=== PATIENT | female | born 1965 | race Caucasian/White ===

== ENCOUNTER 2024-10-18 09:21 | Emergency (ER) | payer OTHER, SELFPAY ==
--- NOTE | ~2024-10-18 | XR_ITS ---
EXAMINATION: XR chest 2V DATE: 10/18/2024 09:58 INDICATION: Pneumonia. TECHNIQUE: Frontal and lateral views of the chest were obtained. COMPARISON: Chest 2 views 11/22/2009 FINDINGS: There is no pneumonia, pleural effusion, or pneumothorax. The heart size is normal. IMPRESSION: 1. No acute cardiopulmonary disease. Reviewed, dictated and finalized at location A. R FILTRATION TECHNICIAN
[2024-10-18 09:34] VITALS: BP 132/72; PULSE 84; RESP 18; TEMP 37.5; O2SAT 98
--- NOTE | 2024-10-18 10:00 | ED_ITS ---
HPI - URI/Sore Throat General Chief Complaint: Upper Respiratory Infection Stated Complaint: Congestion/Fever/Cough History of Present Illness HPI Narrative: Patient presents with a cough productive at times. No shortness of breath no chest pain nasal congestion runny nose fever and body aches. Patient denies a sore throat. Patient is worried about her pneumonia states that both her grand kids were diagnosed with pneumonia. Patient is taking DayQuil and NyQuil for her symptoms. Related Data Allergies Allergy/AdvReac Type Severity Reaction Status Date / Time No Known Allergies Allergy Verified 10/18/24 09:49 Review of Systems Review of Systems: CONSTITUTIONAL: Denies chills, or sweats. Reports fever and generalized body aches EYES: Denies visual changes, redness, or discharge. ENT: Denies otalgia. Reports nasal congestion runny nose and sore throat CARDIOVASCULAR: Denies chest pain, palpitations, or edema. RESPIRATORY: Denies dyspnea. Reports occasional cough GASTROINTESTINAL: Denies abdominal pain, nausea, vomiting, or diarrhea. GENITOURINARY: Denies dysuria or hematuria. SKIN: Denies rash or itching. MUSCULOSKELETAL: Denies back pain, joint pain, or myalgia. Reports generalized body aches NEUROLOGIC: Denies headache, numbness, or weakness. PSYCHIATRIC: Denies anxiety or depression. [facility] Surgical History Surgical History (System 01/16/22 @ 16:22 by Camila Mann) History of shoulder surgery History of tubal ligation Family History Family History (System 01/16/22 @ 16:22 by Camila Mann) Mother Family history of malignant neoplasm of ovary Social History Social History (System 01/16/22 @ 16:22 by Camila Mann) Smoking status: Heavy tobacco smoker Alcohol intake: never Comments At time of signature, agree with nursing past medical, surgical, social and family history. There is no relevant family history pertinent to the presenting complaint Exam Narrative: The patient is a well-developed, well-nourished in no acute distress. SKIN: Skin is warm and dry without erythema, swelling or exudate. There is good turgor. No tenting. HEAD: Atraumatic. Normocephalic. No temporal or scalp tenderness. EYES: Moist and bright. Sclera and conjunctivae normal. No discharge. PERRLA. Extraocular motions intact. Gross visual acuity intact. EARS: Pinna is normal shape and contour. Clear external auditory canals. TM pearly tyson with good cone of light, no erythema or suppuration. Bilateral cerumen noted no gross hearing deficit. NOSE: pink, moist mucosa with good air movement. Clear rhinorrhea without nasal flaring. Septum midline. Mouth: moist mucous membranes. THROAT; mild erythema noted to posterior oropharynx with moderate postnasal drainage. Without exudate or ulceration.. Uvula midline. Normal movement of soft palate. NECK: Supple and nontender with full range of motion without discomfort. No meningeal signs. LUNGS: Equal and bilateral breath sounds without , rales or rhonchi. Few scattered expiratory wheezes CHEST: The chest wall is without retractions or use of accessory muscles. HEART: Has a regular rate and rhythm without murmur, gallops, click or rub. ABDOMEN: Soft, nontender with positive active bowel sounds. No rebound tenderness. EXTREMITIES: Without cyanosis, clubbing or edema. Equal 2+ distal pulses and 2 second capillary refill noted. NEUROLOGIC: alert, active, . The patient moves all extremities with normal muscle strength. Normal muscle tone is noted. Normal coordination is noted. NO focal neurological findings noted. Course Course Level of Care: Express Care Visit Vital Signs Vital signs: Vital Signs Temperature 37.5 C 10/18/24 09:34 Pulse Rate 84 10/18/24 09:34 Respiratory Rate 18 10/18/24 09:34 Blood Pressure 132/72 10/18/24 09:34 Pulse Oximetry 98 10/18/24 09:34 Oxygen Delivery Room Air 10/18/24 09:34 Temperature 37.5 C 10/18/24 09:34 Pulse Rate 84 10/18/24 09:34 Respiratory Rate 18 10/18/24 09:34 Blood Pressure 132/72 10/18/24 09:34 Pulse Oximetry 98 10/18/24 09:34 Oxygen Delivery Room Air 10/18/24 09:34 Please ADDISON schedule a followup visit with your personal physician for further evaluation and treatment. Including recheck and discussion of your blood pressure. If your symptoms persist, change or worsen significantly before you can contact your personal physician then please, without delay, go to the emergency department for further evaluation MDM - URI/Sore Throat Imaging Data Radiologist's impression: atient: Chelsea Aleman : 1965 MR#: [id number] Age: 58 Acct:[id number] Loc: [facility] ADM Date: 10/18/24Attending Dr: Ordering Physician: Chela Mcclain APRN Date of Service: 10/18/24 Procedure(s): XR chest 2V Accession Number(s): [id number] cc: Julio, Audelia Villanueva MD; Chela Mcclain APRN~ EXAMINATION: XR chest 2V DATE: 10/18/2024 09:58 INDICATION: Pneumonia. TECHNIQUE: Frontal and lateral views of the chest were obtained. COMPARISON: Chest 2 views 11/22/2009 FINDINGS: There is no pneumonia, pleural effusion, or pneumothorax. The heart size is normal. IMPRESSION: 1. No acute cardiopulmonary disease. Reviewed, dictated and finalized at location A. NICAL COMMUNICATION TEACHER Dictated By: Jesús Hagan MD 10/18/24 1000 Signed By: <Electronically signed by Jesús Hagan MD in [place]> Discharge Plan Discharge Clinical Impression: Bronchitis, Upper respiratory infection Patient Disposition: Home, Self-Care Condition: Stable Instructions: Acute Bronchitis (ED), COPD (Chronic Obstructive Pulmonary Disease) (DC) Additional Instructions: *Throw away your current toothbrush and begin using a new toothbrush in 48 hours in order to prevent re-infection. If anyone else's toothbrush is stored near yours, they should also throw away their current toothbrush and begin using a new one. *Sanitize all reusable water bottles. *Do not share items with others. *Wash your hands often. Supportive care/Soothing measures/Pain relief: *Avoid cigarette smoke (including secondhand smoke) *Avoid acidic foods and beverages *Eat a soft diet for the next 3-4 days *Salt water gargles may alleviate some of the throat discomfort. Most recipes call for ? to ? teaspoon of salt per 8 ounces (approximately 240 mL) of warm water. *You can take tylenol or ibuprofen per the package instructions for pain/fever. *Sipping cold or warm beverages (eg, tea with honey or lemon) *Eat cold or frozen desserts (eg, ice cream, popsicles) *Sucking on ice *Sucking on hard candy Viruses are everywhere and can spread like wildfire. Sx can last up to 3-4 weeks. Treatment is aimed toward your specific symptoms. You must treat your symptoms in order to feel better while the virus runs it's course. Increase fluids especially water. Do not share items with others. You can take Tylenol or ibuprofen per the package instructions for pain/fever. Wash your hands as often as possible. Purchase and begin using an over the counter antihistamine/decongestant combo such as Zyrtec D, Argelia D, Claritin D as well as Flonase nasal spray per the package instructions. Salt water gargles may alleviate some of your throat discomfort. Go to the ER if your symptoms become worse of if ANY new symptoms develop Patient Language: Czech Prescriptions: New benzonatate 100 mg capsule 100 mg PO TID PRN (Reason: cough) 5 Days Qty: 10 0RF albuterol sulfate 90 mcg/actuation HFA aerosol inhaler 2 puff inhalation QID PRN (Reason: shortness of breath or wheezing) Qty: 17 0RF fluticasone propionate [Flonase Allergy Relief] 50 mcg/actuation spray,suspension 2 spray NASAL BID Qty: 9.9 0RF Rx Instructions: administer into each nostril methylprednisolone [Medrol (Mervin)] 4 mg tablets,dose pack See Rx Instructions .ROUTE .COMPLEX Qty: 21 0RF Rx Instructions: orally per package directions Follow-up/Referrals: Julio,Audelia Villanueva MD [Primary Care Provider] -
--- OUTSIDE RECORDS SUMMARY | 2024-10-25 07:59 | XMS_ITS | Data Portability ---
Author Organization [place] KATELYNKatie Cortes Address [address] [place] [address] Care Team Providers Care Dye Room Helper Name Role Phone AUDELIA KIM [facility] Assessment No assessment recorded. Plan of Treatment Reminders Order Date Submit Date Provider Last Modified By Organization Details Last Modified Time Details Appointments ANY 15 2024 08:30A M AUDELIA KIM MD Not available Not available Not available Lab lipid panel, serum 2021 022 [facility], [address] [place] [address], [address], [place], [address], 11/01/2021 11:11:21 CMP, serum or plasma 2021 022 [facility], [address] [place] [address], [address], [place], [address], 11/01/2021 11:11:20 TSH + free T4, serum 2021 022 [facility], [address] [place] [address], [address], [place], [address], 11/01/2021 11:11:19 CBC 2021 022 [facility], [address] [place] [address], [address], [place], [address], 11/01/2021 11:11:20 cytology report, thin prep, smear or scraping, cervical or vaginal 2021 022 [facility], [address] [facility], [address], [place], [address], 10/24/2022 08:37:37 influenza virus A + B + SARS-CoV- 2 (COVID19) Ag panel, rapid IA, upper respirato ry specimen 2023 024 aniceto In-Office Order, Internal Use Only DO Not Attach Compendium DO Not Attach Compendium, Do Not Delete/merge, [id number] 01/13/2024 16:10:32 inflammat ion panel, serum or plasma 2023 024 [facility], [facility], [address], [place], [address], 08/05/2024 08:37:56 lipid panel, serum 2023 024 [facility], [address] [facility], [facility], [place], [address], 08/05/2024 08:37:57 CMP, serum or plasma 2023 024 [facility], [address] [facility], [facility], [place], [address], 08/05/2024 08:37:59 CBC 2023 024 [facility], [address] [facility], [facility], [place], [address], 08/05/2024 08:38:01 HbA1c (hemoglob in A1c), blood 2023 024 [facility], [address] [facility], [facility], [place], [address], 08/05/2024 08:38:00 CBC w/ auto diff 2023 024 [facility], [address] [address], [address], [place], [address], 08/19/2024 03:36:19 Referral gastroent erologist referral - Please call pt to set up appointme nt 2021 MAYELA Scooby Sae[facility], [address] [facility] , [place] [address], [place], [address], 12/25/2022 08:40:26 physical therapist referral - chronic low back pain 2023 [facility], [address] [place], [address], 09/02/2024 14:17:22 Procedures None recorded. Surgeries None recorded. Imaging LDCT, chest, for lung cancer screening - Please call pt to set up appointme nt. Thank you 2021 [facility], [address] [facility] [place], [address], 01/01/2023 15:12:21 MAMMO, diagnosti c, digital, bilateral - Please call pt to set up appointme nt. Thank you 2021 [facility], [address] [facility] [place], [address], 2022 13:25:44 XR, sacroilia c joint(s) - bilateral SI joint pain 2023 [facility], [address] [facility] [place], [address], 08/09/2024 13:41:17 LDCT, chest, for lung cancer screening - 1. Patient does not have active signs/sym ptoms of lung cancer.2. Shared decision making regarding lung cancer screening occurred during her annual wellness visit on 08/04/24.3 . This is the patient's follow up annual exam after having her last one completed on 12/31/22. She had a follow up CT chest w/o contrast on 03/28/23 and was recommend ed to have a repeat scan with a LDCT chest in 12 months.4. Patient is a current smoker and currently smokes about 1/3 pack per day. She has previousl y smoked 1 pack per day for over 30 years. 2023 [facility] [place] [facility], [address] [facility] [place], [address], 10/12/2024 10:31:01 MAMMO, screening , digital, bilateral 2023 [email or web address] [place] [facility], [address] [facility] [place], [address], 09/09/2024 17:26:43 Medication Orders omeprazol e 20 mg capsule,d elayed release 2021 [facility], [address] [place] [address], [address], 08/04/2024 15:37:45 escitalop razia 5 mg tablet 2021 [id number], [address], [place], [place], [id number], 08/04/2024 15:37:37 escitalop razia 10 mg tablet 2021 [facility]13903, [address], [place], [place], [id number], 08/04/2024 15:37:34 diclofena c sodium 75 mg tablet,de layed release 2023 [facility]39919, [address], [place], [place], [id number], 01/13/2024 16:12:11 fluconazo le 200 mg tablet 2023 [facility] #17553, [address], [place], [place], [id number], 08/04/2024 15:43:18 amoxicill in 875 mg tablet 2023 [facility]20377, [address], [place], [place], [id number], 08/04/2024 15:42:50 nicotine 14 mg/24 hr daily transderm al patch 2023 [facility]82194, [address], [place], [place], [id number], 08/04/2024 17:01:01 nicotine 10 mg inhalatio n cartridge 2023 024 [facility]22155, [address], [place], [place], [id number], 08/18/2024 09:22:04 cyclobenz aprine 5 mg tablet 2023 024 [facility][id number], [address], [place], [place], [id number], 08/18/2024 10:48:26 atorvasta tin 10 mg tablet 2023 024 [facility][id number], [address], [place], [place], [id number], 08/18/2024 09:56:29 Patient TargetsNo targets recorded. Patient Instructions Encounter Date Encounter Id Patient Instructions Last Modified By Organization Details Last Modified Time 10/31/2021 [id number] learning about healthy weight jnanney Not available 10/31/2021 10:53:00 01/13/2024 [id number] A healthy lifestyle: care instructions jnanney Not available 01/13/2024 16:10:30 A healthy lifestyle: care instructions jnanney Not available 01/13/2024 16:12:02 cough: care instructions jnanney Not available 01/13/2024 16:10:30 back care and preventing injuries: care instructions jnanney Not available 01/13/2024 16:12:02 vaginal yeast infection: care instructions jnanney Not available 01/13/2024 16:13:14 upper respirator y infection (cold): care instructions jnanney Not available 01/13/2024 16:10:30 Acute Sinusitis: Care Instructions jnanney Not available 01/13/2024 16:12:02 08/04/2024 [id number] smoking cessatio n counseling, greater than 3 minutes up to 10 minutes* [email or web address] Not available 08/04/2024 16:23:08 A healthy lifestyle: care instructions Not available 08/04/2024 16:12:30 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 History of polyp of colon follow up colonoscopy; history of polyps Please call pt to set up appointment Referring Physician: Audelia Kim [facility], Encounter Date: 10/11/2022 Physical Therapist Referral for Chronic low back pain chronic low back pain Referring Physician: Audelia Kim [facility], Encounter Date: 08/18/2024 Results Created Date Observation Date Name Description Value Unit Range Abnormal Flag Note LastModifiedBy Organization Detail LastModifiedTime 10/31/19 22 11/01/2021 TSH+F REE T4 TSH 0.489 uIU/m L 0.450- 4.500 Not Available [facility] ([facility]) [address] [place], [address], 11/01/2021 11:11:19 10/31/19 22 11/01/2021 TSH+F REE T4 T4,free(dire ct) 1.07 NG/dL 0.82-1 .77 Not Available [facility] ([facility]) [address] [place], [address], 11/01/2021 11:11:19 10/31/19 22 11/01/2021 COMP. METAB OLIC PANEL (14) glucose 87 mg/dL 65-99 Not Available [facility] ([facility]) [address] [place], [address], 11/01/2021 11:11:20 10/31/19 22 11/01/2021 COMP. METAB OLIC PANEL (14) BUN 14 mg/dL 6-24 Not Available [facility] ([facility]) [address] [place], [address], 11/01/2021 11:11:20 10/31/19 22 11/01/2021 COMP. METAB OLIC PANEL (14) creatinine 0.80 mg/dL 0.57-1 .00 Not Available [facility] ([facility]) [address] [place], [address], 11/01/2021 11:11:20 10/31/19 22 11/01/2021 COMP. METAB OLIC PANEL (14) eGFR if nonafricn AM 84 mL/mi n/1.7 3 >59 Not Available [facility] ([facility]) [address] [facility], [place], [address], 11/01/2021 11:11:20 10/31/19 22 11/01/2021 COMP. METAB OLIC PANEL (14) eGFR if africn AM 97 mL/mi n/1.7 3 >59 In accor dance with recom larry palencia from the NKF-A SN Task force , Johanna is in the proce ss of updat ing its eGFR calcu latio n to the 2020 CKD-E PI creat inine equat ion that estim ates kidne y funct ion witho ut a race varia ble. Not Available [facility] ([facility]) [address] [facility], [place], [address], 11/01/2021 11:11:20 10/31/19 22 11/01/2021 COMP. METAB OLIC PANEL (14) BUN/creatini ne ratio 18 9-23 Not Available [facility]) [address] [facility], [place], [address], 11/01/2021 11:11:20 10/31/19 22 11/01/2021 COMP. METAB OLIC PANEL (14) sodium 141 mmol/ L 134-14 4 Not Available [facility] ([facility]) [address] [facility] [place], [address], 11/01/2021 11:11:20 10/31/19 22 11/01/2021 COMP. METAB OLIC PANEL (14) potassium 4.5 mmol/ L 3.5-5. 2 Not Available [facility] ([facility]) [address] [facility] [place], [address], 11/01/2021 11:11:20 10/31/19 22 11/01/2021 COMP. METAB OLIC PANEL (14) chloride 103 mmol/ L 96-106 Not Available [facility] ([facility]) [address] [facility] [place], [address], 11/01/2021 11:11:20 10/31/19 22 11/01/2021 COMP. METAB OLIC PANEL (14) carbon dioxide, total 22 mmol/ L 20-29 Not Available [facility] ([facility]) [address] [facility] [place], [address], 11/01/2021 11:11:20 10/31/19 22 11/01/2021 COMP. METAB OLIC PANEL (14) calcium 8.8 mg/dL 8.7-10 .2 Not Available [facility] ([facility]) [address] [facility] [place], [address], 11/01/2021 11:11:20 10/31/19 22 11/01/2021 COMP. METAB OLIC PANEL (14) protein, total 7.0 g/dL 6.0-8. 5 Not Available [facility] ([facility]) [address] [facility] [place], [address], 11/01/2021 11:11:20 10/31/19 22 11/01/2021 COMP. METAB OLIC PANEL (14) albumin 4.2 g/dL 3.8-4. 9 Not Available [facility] ([facility]) [address] [facility] [place], [address], 11/01/2021 11:11:20 10/31/19 22 11/01/2021 COMP. METAB OLIC PANEL (14) globulin, total 2.8 g/dL 1.5-4. 5 Not Available [facility] ([facility]) [address] [facility] [place], [address], 11/01/2021 11:11:20 10/31/19 22 11/01/2021 COMP. METAB OLIC PANEL (14) A/G ratio 1.5 1.2-2. 2 Not Available [facility] ([facility]) [address] [facility] [place], [address], 11/01/2021 11:11:20 10/31/19 22 11/01/2021 COMP. METAB OLIC PANEL (14) bilirubin, total 0.3 mg/dL 0.0-1. 2 Not Available [facility] ([facility]) [address] [facility] [place], [address], 11/01/2021 11:11:20 10/31/19 22 11/01/2021 COMP. METAB OLIC PANEL (14) alkaline phosphatase 107 IU/L 44-121 Ple ase note refer ence inter nella lu e Not Available [facility] ([facility]) [address] [facility] [place], [address], 11/01/2021 11:11:20 10/31/19 22 11/01/2021 COMP. METAB OLIC PANEL (14) AST (SGOT) 45 IU/L 0-40 above high normal Not Available [facility] ([facility]) [address] [facility] [place], [address], 11/01/2021 11:11:20 10/31/19 22 11/01/2021 COMP. METAB OLIC PANEL (14) ALT (SGPT) 66 IU/L 0-32 above high normal Not Available [facility] ([facility]) [address] [facility], [place], [address], 11/01/2021 11:11:20 10/31/19 22 11/01/2021 CBC, PLATE LET, NO DIFFE RENTI AL WBC 7.8 x10e3 /uL 3.4-10 .8 Not Available [facility] ([facility]) [address] [facility], [place], [address], 11/01/2021 11:11:20 10/31/19 22 11/01/2021 CBC, PLATE LET, NO DIFFE RENTI AL RBC 4.04 x10e6 /uL 3.77-5 .28 Not Available [facility] ([facility]) [address] [facility] [place], [address], 11/01/2021 11:11:20 10/31/19 22 11/01/2021 CBC, PLATE LET, NO DIFFE RENTI AL hemoglobin 11.7 g/dL 11.1-1 5.9 Not Available [facility] ([facility]) [address] [facility], [place], [address], 11/01/2021 11:11:20 10/31/19 22 11/01/2021 CBC, PLATE LET, NO DIFFE RENTI AL hematocrit 35.0 % 34.0-4 6.6 Not Available [facility] ([facility]) [address] [facility], [place], [address], 11/01/2021 11:11:20 10/31/19 22 11/01/2021 CBC, PLATE LET, NO DIFFE RENTI AL MCV 87 fL 79-97 Not Available [facility] ([facility]) [address] [place], [address], 11/01/2021 11:11:20 10/31/19 22 11/01/2021 CBC, PLATE LET, NO DIFFE RENTI AL MCH 29.0 pg 26.6-3 3.0 Not Available [facility] ([facility]) [address] [place], [address], 11/01/2021 11:11:20 10/31/19 22 11/01/2021 CBC, PLATE LET, NO DIFFE RENTI AL MCHC 33.4 g/dL 31.5-3 5.7 Not Available [facility] ([facility]) [address] [facility], [place], [address], 11/01/2021 11:11:20 10/31/19 22 11/01/2021 CBC, PLATE LET, NO DIFFE RENTI AL RDW 12.8 % 11.7-1 5.4 Not Available [facility] ([facility]) [address] [facility], [place], [address], 11/01/2021 11:11:20 10/31/19 22 11/01/2021 CBC, PLATE LET, NO DIFFE RENTI AL platelets 231 x10e3 /uL 150-45 0 Not Available [facility] ([facility]) [address] [facility], [place], [address], 11/01/2021 11:11:20 10/31/19 22 11/01/2021 CBC, PLATE LET, NO DIFFE RENTI AL NRBC PAINTER ORDNANCE Not Available [facility] ([facility]) [address] [facility], [place], [address], 11/01/2021 11:11:20 10/31/19 22 11/01/2021 LIPID PANEL cholesterol, total 246 mg/dL 100-19 9 above high normal Not Available [facility] ([facility]) [address] [place], [address], 11/01/2021 11:11:21 10/31/19 22 11/01/2021 LIPID PANEL triglyceride s 191 mg/dL 0-149 above high normal Not Available [facility] ([facility]) [address] [place], [address], 11/01/2021 11:11:21 10/31/19 22 11/01/2021 LIPID PANEL HDL cholesterol 48 mg/dL >39 Not Available [facility]) [address] [facility], [place], [address], 11/01/2021 11:11:21 10/31/19 22 11/01/2021 LIPID PANEL VLDL cholesterol molly 35 mg/dL 5-40 Not Available [facility]) [address] [facility], [place], [address], 11/01/2021 11:11:21 10/31/19 22 11/01/2021 LIPID PANEL LDL chol calc ([facility]) 163 mg/dL 0-99 above high normal Not Available [facility] ([facility]) [address] [facility], [place], [address], 11/01/2021 11:11:21 10/31/19 22 11/01/2021 LIPID PANEL comment: PAINTER ORDNANCE Not Available [facility] ([facility]) [address] [facility], [place], [address], 11/01/2021 11:11:21 10/31/19 22 11/01/2021 CARDI OVASC ULAR REPOR T interpretati on Note Suppl ement al repor t is avail able. Not Available [facility] ([facility]) [address] [facility], [place], [address], 11/01/2021 11:11:22 10/31/19 22 11/01/2021 CARDI OVASC ULAR REPOR T pdf . Not Available [facility] ([facility]) [address] [facility], [place], [address], 11/01/2021 11:11:22 10/11/20 22 10/13/2022 IGP, APTIM A HPV, RFX 16/18 ,45 HPV aptima Negati ve negati ve This nucle ic acid ampli ficat ion test detec ts fourt een high- risk HPV types (16,1 8,31, 33,35 ,39,4 5,51, 52,56 ,58,5 9,66, 68) witho ut diffe renti ation . Not Available [facility] ([facility]) [address] [facility], [place], [address], 10/24/2022 08:37:37 10/11/20 22 10/24/2022 IGP, APTIM A HPV, RFX 16/18 ,45 diagnosis: Meliton ventura NEGDARLENE DAVEY FOR INTRA EPITH ELIAL LESIO N OR MALTOMAS ARNALDO . THIS SPECI MEN WAS RESCR EENED PART OF OUR QUALI TY CONTR OL PROGR AM. Not Available [facility] ([facility]) [address] [facility], [place], [address], 10/24/2022 08:37:37 10/11/20 22 10/24/2022 IGP, APTIM A HPV, RFX 16/18 ,45 specimen adequacy: Meliton ventura Satis facto shila for evalu ation . Endoc ervic al and/o r squam ous metap lasti c cells (endo cervi molly compo nent) are prese nt. Not Available [facility] ([facility]) [address] [facility], [place], [address], 10/24/2022 08:37:37 10/11/20 22 10/24/2022 IGP, APTIM A HPV, RFX 16/18 ,45 clinician provided ICD10: Meliton ventura Z12.4 Not Available [facility] ([facility]) [address] [facility], [place], [address], 10/24/2022 08:37:37 10/11/20 22 10/24/2022 IGP, APTIM A HPV, RFX 16/18 ,45 performed by: Meliton lyle Cytoaudrey ventura (ASCP ) Not Available [facility] ([facility] [address] [facility], [place], [address], 10/24/2022 08:37:37 10/11/20 22 10/24/2022 IGP, APTIM A HPV, RFX 16/18 ,45 QC reviewed by: Meliton Marks n, Super visor y Cytot echsunny tanner t (ASCP ) Not Available [facility] ([facility] [address] [place], [address], 10/24/2022 08:37:37 10/11/20 22 10/24/2022 IGP, APTIM A HPV, RFX 16/18 ,45 . . Not Available [facility] ([facility] [address] [place], [address], 10/24/2022 08:37:37 10/11/20 22 10/24/2022 IGP, APTIM A HPV, RFX 16/18 ,45 note: Meilton ventura The Pap smear is a scree jose test desig vijay to aid in the detec tion of tyrese ligna nt and malig nant condi tions of the uteri ne cervi x. It is not a diagn ostic proce dure and shoul d not be used as the sole means of detec ting cervi molly cance r. Both false -posi tive and false -nega tive repor ts do occur . Not Available [facility] ([facility] [address] [facility], [place], [address], 10/24/2022 08:37:37 10/11/20 22 10/24/2022 IGP, APTIM A HPV, RFX 16/18 ,45 test methodology: Meliton ventura This liqui d based ThinP rep(R ) pap test was scree vijay with the use of an image guide vern systpastor m. Not Available [facility] ([facility] [address] [place], [address], 10/24/2022 08:37:37 10/11/20 22 10/24/2022 IGP, APTIM A HPV, RFX 16/18 ,45 HPV genotype reflex Meliton ventura Crite joellen not met, HPV Genot ype not perfo rmed. Not Available [facility] ([facility] [address] [facility], [place], [address], 10/24/2022 08:37:37 01/13/20 24 01/13/2024 influ rocio virus A + B + SARS- CoV-2 (COVI D19) Ag panel , rapid IA, upper respi rator y speci men Flu A negati ve Not Available In-Office Order Internal Use Only DO Not Attach Compendium DO Not Attach Compendium, Do Not Delete/merge, [id number] 01/13/2024 15:38:38 01/13/20 24 01/13/2024 influ rocio virus A + B + SARS- CoV-2 (COVI D19) Ag panel , rapid IA, upper respi rator y speci men Flu B negati ve Not Available In-Office Order Internal Use Only DO Not Attach Compendium DO Not Attach Compendium, Do Not Delete/merge, [id number] 01/13/2024 15:38:38 08/04/20 24 08/05/2024 ESR-W ES+CR P sedimentatio n rate-westerg abelardo 5 mm/HR 0-40 Not Available [facility] ([facility] [address] [facility], [place], [address], 08/05/2024 08:37:56 08/04/20 24 08/05/2024 ESR-W ES+CR P C-reactive protein, quant 7 mg/L 0-10 Not Available [facility] [address] [facility], [place], [address], 08/05/2024 08:37:56 08/04/20 24 08/05/2024 LIPID PANEL cholesterol, total 249 mg/dL 100-19 9 above high normal Not Available [facility] ([facility] [address] [facility], [place], [address], 08/05/2024 08:37:57 08/04/20 24 08/05/2024 LIPID PANEL triglyceride s 395 mg/dL 0-149 above high normal Not Available [facility] ([facility] [address] [facility], [place], [address], 08/05/2024 08:37:57 08/04/2008/05/2024 LIPID PANEL HDL cholesterol 35 mg/dL >39 below low normal Not Available [facility] ([facility]) [address] [facility] [place], [address], 08/05/2024 08:37:57 08/04/2008/05/2024 LIPID PANEL VLDL cholesterol molly 73 mg/dL 5-40 above high normal Not Available [facility] ([facility] [address] [facility] [place], [address], 08/05/2024 08:37:57 08/04/2008/05/2024 LIPID PANEL LDL chol calc ([facility]) 141 mg/dL 0-99 above high normal Not Available [facility] ([facility] [address] [place], [address], 08/05/2024 08:37:57 08/04/2008/05/2024 COMP. METAB OLIC PANEL (14) glucose 65 mg/dL 70-99 below low normal Not Available [facility] ([facility]) [address] [facility] [place], [address], 08/05/2024 08:37:59 08/04/2008/05/2024 COMP. METAB OLIC PANEL (14) BUN 12 mg/dL 6-24 Not Available [facility] ([facility] [address] [place], [address], 08/05/2024 08:37:59 08/04/2008/05/2024 COMP. METAB OLIC PANEL (14) creatinine 0.79 mg/dL 0.57-1 .00 Not Available [facility] ([facility] [address] [place], [address], 08/05/2024 08:37:59 08/04/2008/05/2024 COMP. METAB OLIC PANEL (14) eGFR 87 mL/mi n/1.7 3 >59 Not Available [facility] ([facility]) [address] [facility] [place], [address], 08/05/2024 08:37:59 08/04/20 24 08/05/2024 COMP. METAB OLIC PANEL (14) BUN/creatini ne ratio 15 9-23 Not Available [facility]) [address] [facility] [place], [address], 08/05/2024 08:37:59 08/04/20 24 08/05/2024 COMP. METAB OLIC PANEL (14) sodium 140 mmol/ L 134-14 4 Not Available [facility] ([facility]) [address] [facility], [place], [address], 08/05/2024 08:37:59 08/04/20 24 08/05/2024 COMP. METAB OLIC PANEL (14) potassium 4.3 mmol/ L 3.5-5. 2 Not Available [facility] ([facility] [address] [facility], [place], [address], 08/05/2024 08:37:59 08/04/20 24 08/05/2024 COMP. METAB OLIC PANEL (14) chloride 102 mmol/ L 96-106 Not Available [facility] ([facility] [address] [facility], [place], [address], 08/05/2024 08:37:59 08/04/20 24 08/05/2024 COMP. METAB OLIC PANEL (14) carbon dioxide, total 24 mmol/ L 20-29 Not Available [facility] ([facility] [address] [facility], [place], [address], 08/05/2024 08:37:59 08/04/20 24 08/05/2024 COMP. METAB OLIC PANEL (14) calcium 9.6 mg/dL 8.7-10 .2 Not Available [facility] ([facility]) [address] [facility] [place], [address], 08/05/2024 08:37:59 08/04/2008/05/2024 COMP. METAB OLIC PANEL (14) protein, total 7.2 g/dL 6.0-8. 5 Not Available [facility] ([facility]) [address] [facility], [place], [address], 08/05/2024 08:37:59 08/04/2008/05/2024 COMP. METAB OLIC PANEL (14) albumin 4.4 g/dL 3.8-4. 9 Not Available [facility] ([facility]) [address] [facility] [place], [address], 08/05/2024 08:37:59 08/04/20 24 08/05/2024 COMP. METAB OLIC PANEL (14) globulin, total 2.8 g/dL 1.5-4. 5 Not Available [facility] ([facility]) [address] [facility], [place], [address], 08/05/2024 08:37:59 08/04/2008/05/2024 COMP. METAB OLIC PANEL (14) bilirubin, total 0.4 mg/dL 0.0-1. 2 Not Available [facility] ([facility]) [address] [facility], [place], [address], 08/05/2024 08:37:59 08/04/2008/05/2024 COMP. METAB OLIC PANEL (14) alkaline phosphatase 107 IU/L 44-121 Not Available [facility] ([facility]) [address] [facility], [place], [address], 08/05/2024 08:37:59 08/04/2008/05/2024 COMP. METAB OLIC PANEL (14) AST (SGOT) 24 IU/L 0-40 Not Available [facility] ([facility]) [address] [facility], [place], [address], 08/05/2024 08:37:59 08/04/2008/05/2024 COMP. METAB OLIC PANEL (14) ALT (SGPT) 19 IU/L 0-32 Not Available [facility] ([facility]) [address] [facility], [place], [address], 08/05/2024 08:37:59 08/04/2008/05/2024 HEMOG LOBIN A1C hemoglobin A1C 5.6 % 4.8-5. 6 Predi abete s: 5.7 - 6.4 Diabe jayna: >6.4 Glyce maryjo contr ol for adult s with diabe jayna: <7.0 Not Available [facility] ([facility]) [address] [facility], [place], [address], 08/05/2024 08:38:00 08/04/2008/05/2024 CBC, PLATE LET, NO DIFFE RENTI AL WBC 14.1 x10e3 /uL 3.4-10 .8 above high normal Not Available [facility] ([facility]) [address] [place], [address], 08/05/2024 08:38:01 08/04/2008/05/2024 CBC, PLATE LET, NO DIFFE RENTI AL RBC 5.42 x10e6 /uL 3.77-5 .28 above high normal Not Available [facility] ([facility]) [address] [place], [address], 08/05/2024 08:38:01 08/04/2008/05/2024 CBC, PLATE LET, NO DIFFE RENTI AL hemoglobin 15.7 g/dL 11.1-1 5.9 Not Available [facility] ([facility]) [address] [place], [address], 08/05/2024 08:38:01 08/04/2008/05/2024 CBC, PLATE LET, NO DIFFE RENTI AL hematocrit 47.3 % 34.0-4 6.6 above high normal Not Available [facility] ([facility]) [address] [facility], [place], [address], 08/05/2024 08:38:01 08/04/2008/05/2024 CBC, PLATE LET, NO DIFFE RENTI AL MCV 87 fL 79-97 Not Available [facility] ([facility]) [address] [facility], [place], [address], 08/05/2024 08:38:01 08/04/2008/05/2024 CBC, PLATE LET, NO DIFFE RENTI AL MCH 29.0 pg 26.6-3 3.0 Not Available [facility] ([facility]) [address] [facility], [place], [address], 08/05/2024 08:38:01 08/04/2008/05/2024 CBC, PLATE LET, NO DIFFE RENTI AL MCHC 33.2 g/dL 31.5-3 5.7 Not Available [facility] ([facility]) [address] [facility], [place], [address], 08/05/2024 08:38:01 08/04/2008/05/2024 CBC, PLATE LET, NO DIFFE RENTI AL RDW 12.7 % 11.7-1 5.4 Not Available [facility] ([facility]) [address] [facility], [place], [address], 08/05/2024 08:38:01 08/04/2008/05/2024 CBC, PLATE LET, NO DIFFE RENTI AL platelets 259 x10e3 /uL 150-45 0 Not Available [facility] ([facility]) [address] [facility], [place], [address], 08/05/2024 08:38:01 08/18/20 24 08/18/2024 CBC WITH DIFFE RENTI AL/PL ATELE T WBC 9.3 x10e3 /uL 3.4-10 .8 Not Available [facility] ([facility]) [address] [facility], [place], [address], 08/19/2024 03:36:19 08/18/20 24 08/18/2024 CBC WITH DIFFE RENTI AL/PL ATELE T RBC 5.17 x10e6 /uL 3.77-5 .28 Not Available [facility] ([facility]) [address] [facility], [place], [address], 08/19/2024 03:36:19 08/18/20 24 08/18/2024 CBC WITH DIFFE RENTI AL/PL ATELE T hemoglobin 14.9 g/dL 11.1-1 5.9 Not Available [facility] ([facility]) [address] [facility], [place], [address], 08/19/2024 03:36:19 08/18/20 24 08/18/2024 CBC WITH DIFFE RENTI AL/PL ATELE T hematocrit 46.4 % 34.0-4 6.6 Not Available [facility] ([facility]) [address] [facility], [place], [address], 08/19/2024 03:36:19 08/18/20 24 08/18/2024 CBC WITH DIFFE RENTI AL/PL ATELE T MCV 90 fL 79-97 Not Available [facility] ([facility]) [address] [facility], [place], [address], 08/19/2024 03:36:19 08/18/20 24 08/18/2024 CBC WITH DIFFE RENTI AL/PL ATELE T MCH 28.8 pg 26.6-3 3.0 Not Available [facility] ([facility]) [address] [place], [address], 08/19/2024 03:36:19 08/18/20 24 08/18/2024 CBC WITH DIFFE RENTI AL/PL ATELE T MCHC 32.1 g/dL 31.5-3 5.7 Not Available [facility] ([facility]) [address] [facility], [place], [address], 08/19/2024 03:36:19 08/18/20 24 08/18/2024 CBC WITH DIFFE RENTI AL/PL ATELE T RDW 12.4 % 11.7-1 5.4 Not Available [facility] ([facility]) [address] [facility], [place], [address], 08/19/2024 03:36:19 08/18/20 24 08/18/2024 CBC WITH DIFFE RENTI AL/PL ATELE T platelets 242 x10e3 /uL 150-45 0 Not Available [facility] ([facility]) [address] [facility], [place], [address], 08/19/2024 03:36:19 08/18/20 24 08/18/2024 CBC WITH DIFFE RENTI AL/PL ATELE T neutrophils 61 % notest ab. Not Available [facility] ([facility]) [address] [facility], [place], [address], 08/19/2024 03:36:19 08/18/20 24 08/18/2024 CBC WITH DIFFE RENTI AL/PL ATELE T lymphs 34 % notest ab. Not Available [facility] ([facility]) [address] [facility], [place], [address], 08/19/2024 03:36:19 08/18/20 24 08/18/2024 CBC WITH DIFFE RENTI AL/PL ATELE T monocytes 4 % notest ab. Not Available [facility] ([facility]) [address] [place], [address], 08/19/2024 03:36:19 08/18/20 24 08/18/2024 CBC WITH DIFFE RENTI AL/PL ATELE T eos 1 % notest ab. Not Available [facility] ([facility]) [address] [place], [address], 08/19/2024 03:36:19 08/18/20 24 08/18/2024 CBC WITH DIFFE RENTI AL/PL ATELE T basos 0 % notest ab. Not Available [facility] ([facility]) [address] [facility], [place], [address], 08/19/2024 03:36:19 08/18/20 24 08/18/2024 CBC WITH DIFFE RENTI AL/PL ATELE T neutrophils (absolute) 5.7 x10e3 /uL 1.4-7. 0 Not Available [facility] ([facility]) [address] [facility], [place], [address], 08/19/2024 03:36:19 08/18/20 24 08/18/2024 CBC WITH DIFFE RENTI AL/PL ATELE T lymphs (absolute) 3.2 x10e3 /uL 0.7-3. 1 above high normal Not Available [facility] ([facility]) [address] [facility], [place], [address], 08/19/2024 03:36:19 08/18/20 24 08/18/2024 CBC WITH DIFFE RENTI AL/PL ATELE T monocytes(ab solute) 0.3 x10e3 /uL 0.1-0. 9 Not Available [facility] ([facility]) [address] [facility], [place], [address], 08/19/2024 03:36:19 08/18/20 24 08/18/2024 CBC WITH DIFFE RENTI AL/PL ATELE T eos (absolute) 0.1 x10e3 /uL 0.0-0. 4 Not Available [facility] ([facility]) [address] [place], [address], 08/19/2024 03:36:19 08/18/20 24 08/18/2024 CBC WITH DIFFE RENTI AL/PL ATELE T baso (absolute) 0.0 x10e3 /uL 0.0-0. 2 Not Available [facility] ([facility]) [address] [facility], [place], [address], 08/19/2024 03:36:19 08/18/20 24 08/18/2024 CBC WITH DIFFE RENTI AL/PL ATELE T immature granulocytes 0 % notest ab. Not Available [facility] ([facility]) [address] [facility], [place], [address], 08/19/2024 03:36:19 08/18/20 24 08/18/2024 CBC WITH DIFFE RENTI AL/PL ATELE T immature grans (abs) 0.0 x10e3 /uL 0.0-0. 1 Not Available [facility] ([facility]) [address] [facility], [place], [address], 08/19/2024 03:36:19 11/30/19 23 2022 MAMMO , diagn ostic , digit al, bilat eral No observ ation [facility] ed[email or web address] [address] , [place], [address], 12/04/2022 14:16:42 11/30/19 23 2022 US, breas t, bilat eral No observ ation record ed. maryjane Irvin [address] [place], [address], 12/04/2022 14:16:42 01/02/20 23 12/31/2022 LDCT, chest , for lung cance r scree jose No observ ation record ed. maryjane [place] () [address] [place], [address], 01/04/2023 10:23:50 03/28/20 23 03/28/2023 XR, wrist No observ ation record ed. nam [place] (Fm) [address] [place], [address], 04/01/2023 14:11:39 03/29/20 23 03/28/2023 CT, chest , w/o contr ast No observ ation record ed. [address] [place], [address], 04/04/2023 16:37:58 08/09/20 24 08/06/2024 XR, sacro iliac joint (s) No observ ation record ed. [address] [place], [address], 08/11/2024 16:31:18 10/12/20 24 10/05/2024 LDCT, chest , for lung cance r scree jose No observ ation record ed. [address] [place], [address], 10/20/2024 13:26:30 10/18/20 24 10/18/2024 XR, chest , 2 view No observ ation record ed. [email or web address] [facility] [address], [place], [address], 10/19/2024 14:41:03 Result Notes None recorded. Problems Name Problem SNOMED Code Status Onset Date Resolution Date Notes Provider Name and Address Organization Details Recorded Time Menopausal symptom 04796285 Active 2021 AUDELIA KIM MD Attn: Moy toro,[address] [facility], [place], [address], [facility] 2 14:44:52 Tobacco user 534081352 Active 2021 AUDELIA KIM MD Attn: Accountin g,[address] [facility], [place], [address], [facility] 2 14:44:54 Breast tenderness 34064907 Active 2021 AUDELIA KIM MD Attn: Moy g,[address] [facility], [place], [address], [facility] 2 14:44:47 History of polyp of colon 328834300 Active 2021 AUDELIA KIM MD Attn: Accountin g,[address] [facility], [place], [address], [place] [facility] 2 14:44:50 Multiple nodules of lung 725480744 Active 2022 AUDELIA KIM MD Attn: Accountzaire g,[address] [facility], [place], [address], [place] [facility] 3 18:22:03 Pulmonary emphysema 61874571 Active 2022 AUDELIA KIM MD Attn: Accountin g,[address] [facility], [place], [address], [place] [facility] 3 18:22:15 Dyslipidemia 215901608 Active 2023 AUDELIA KIM MD Attn: Accountzaire g,[address] [facility], [place], [address], [place] [facility] 4 09:56:26 Chronic low back pain 724477298 Active 2023 AUDELIA KIM MD Attn: Accountin g,[address] [facility], [place], [address], [place] [facility] 4 10:45:00 Acute sinusitis 23692247 Active Tracy Almeida [place] null, [place] [facility] 1 09:51:24 Ganglion cyst 554584853 Active Tracy Almeida [place] null, [place] - [facility] 1 09:51:24 Problem Notes None recorded. Procedures Surgical History Date Name Laterality Status Provider Name and Address Organization Details Recorded Time 12/19/19 23 colonoscopy completed HEATH Latif - [facility] 08/18/2024 09:24:33 11/30/19 23 Date of Last Mammogram completed HEATH Latif - [facility] 08/18/2024 09:22:48 10/11/20 22 Date of Last Pap Smear completed HEATH Don - [facility] 08/04/2024 15:45:09 12/13/19 18 colonoscopy completed HEATH Quezada - [facility] 11/12/2018 11:50:21 01/01/20 15 IUD Removal completed Armando Almeida MD Attn: Accounting,[address] [facility], [place], [address], [facility] 12/31/2014 12:24:51 10/28/18 90 Tubal Ligation completed Karlialeks Stallings [facility] 11/19/2014 10:30:59 repair of shoulder completed Mary Lemus MA [facility] 11/12/2018 11:50:35 wrist repair completed Mary Lemus MA [facility] 11/12/2018 11:50:41 Imaging Results Imaging Date Name Status LastModified by [facility] Details LastModified Time 2022 MAMMO, diagnostic, digital, bilateral completed [address] [place], [address], 12/04/2022 14:16:42 2022 US, breast, bilateral completed [address] [place], [address], 12/04/2022 14:16:42 12/31/2022 LDCT, chest, for lung cancer screening completed maryjane Schaeffer (Fm) [address] [place], [address], 01/04/2023 10:23:50 03/28/2023 XR, wrist completed nam Schaeffer (F m) [address] [place], [address], 04/01/2023 14:11:39 03/28/2023 CT, chest, w/o contrast completed [address] [place], [address], 04/04/2023 16:37:58 08/06/2024 XR, sacroiliac joint(s) completed [address] [place], [address], 08/11/2024 16:31:18 10/05/2024 LDCT, chest, for lung cancer screening completed [address] [place], [address], 10/20/2024 13:26:30 10/18/2024 XR, chest, 2 view completed [address] , [place], [address], 10/19/2024 14:41:03 Procedure Notes None recorded. Medical Equipment None Reported. Allergies No known drug allergies Medications Name Sig Start Date Stop Date Status Note LastModified by Organization Details LastModified Time amoxicill in 500 mg capsule 11/09 completed Not Available Not Available Not Available buspirone 5 mg tablet Take 1 tablet twice a day by oral route for 30 days. 11/09 completed Not Available Not Available Not Available atorvasta tin 20 mg tablet Take 1 tablet every day by oral route for 90 days. 08/04 completed Pt. states she has it but doesn't take it. Not Available Not Available Not Available nicotine 14 mg/24 hr daily transderm al patch APPLY 1 PATCH TOPICALL Y TO THE SKIN EVERY DAY FOR SMOKING CESSATIO N active Not Available Not Available No t Available atorvasta tin 10 mg tablet TAKE 1 TABLET BY MOUTH EVERY DAY FOR HIGH CHOLESTE ROL active Not Available Not Available No t Available ibuprofen 800 mg tablet TAKE 1 TABLET BY MOUTH THREE TIMES DAILY 11/04 completed Not Available Not Available Not Available tramadol 37.5 mg-acetam inophen 325 mg tablet TAKE 1 TABLET BY MOUTH EVERY 8 HOURS NEEDED FOR PAIN . NOT RELIEVED BY MEDROL DOSEPAK 08/04 completed Not Available Not Available Not Available fluconazo le 150 mg tablet Take 1 tablet every 72 hours by oral route. 01/11 completed Not Available Not Available Not Available hydrocodo ne 5 mg-acetam inophen 325 mg tablet 11/09 completed Not Available Not Available Not Available Keflex 500 mg capsule Take 1 capsule every 8 hours by oral route as directed for 10 days. 11/04 completed Not Available Not Available Not Available fluconazo le 200 mg tablet TAKE 1 TABLET BY MOUTH EVERY 72 HOURS DIRECTED 08/04 completed Not Available Not Available Not Available Prometriu m 100 mg capsule Take 1 capsule every day by oral route for 30 days. 2014 active Not Available Not Available Not Avai lable nicotine 10 mg inhalatio n cartridge Stop cigarett e use at start of treatmen t. Use frequent continuo us puffing x20min for each cartridg e. Use at least 6 cartridg es per day for 3-6 weeks. Do not use more than 16 cartridg es per day. 08/18 completed Not Available Not Available Not Available amoxicill in 875 mg tablet TAKE 1 TABLET BY MOUTH EVERY 12 HOURS FOR 10 DAYS 08/04 completed Not Available Not Available Not Available estradiol 1 mg tablet Take 1 tablet every day by oral route for 30 days. 2014 active Not Available Not Available Not Avai lable hydrocodo ne 7.5 mg-acetam inophen 325 mg tablet 11/04 completed Not Available Not Available Not Available CombiPatc h 0.05 mg-0.25 mg/24 hr transderm al APPLY ONE PATCH TO SKIN TWICE A WEEK 2014 active Not Available Not Available Not Avai lable omeprazol e 20 mg capsule,d elayed release Take 1 capsule every day by oral route for 90 days. 08/04 completed Not Available Not Available Not Available diclofena c sodium 75 mg tablet,de layed release TAKE 1 TABLET BY MOUTH TWICE DAILY NEEDED active Not Available Not Available No t Available zolpidem 5 mg tablet Take 1 tablet every day by oral route for 30 days. 11/12 completed Made patient feel drunk Not Available Not Available Not Available Prempro 0.625 mg-2.5 mg tablet Take 1 tablet every day by oral route as directed . active Not Available Not Available No t Available methylpre dnisolone 4 mg tablets in a dose pack FOLLOW PACKAGE DIRECTIO NS 01/12 completed Not Available Not Available Not Available azithromy badlev 500 mg tablet Take 1 tablet every day by oral route for 3 days. 01/11 completed Not Available Not Available Not Available escitalop razia 10 mg tablet TAKE 1 TABLET BY MOUTH EVERY DAY 08/04 completed Not Available Not Available Not Available nicotine (polacril ex) 2 mg buccal lozenge Use one lozenge by mouth every 2-4 hours as needed. Do not use more than 20 lozenges in 24h. Avoid food/dri nk 15min before and after use. 08/18 completed Not Available Not Available Not Available cyclobenz aprine 5 mg tablet TAKE 1 TABLET BY MOUTH THREE TIMES DAILY FOR 14 DAYS NEEDED FOR BACK PAIN OR SPASMS active Not Available Not Available No t Available escitalop razia 5 mg tablet TAKE 1 TABLET BY MOUTH EVERY DAY FOR 7 DAYS 08/04 completed Not Available Not Available Not Available fenofibra te 160 mg tablet Take 1 tablet every day by oral route for 90 days. 11/12 completed Not Available Not Available Not Available Belsomra 20 mg tablet Take 1 tablet every day by oral route at bedtime for 30 days. 11/09 completed Not Available Not Available Not Available Vitals Date Recorded Body height Body temperature Oxygen saturation Oxygen saturation in Arterial blood by Pulse oximetry Heart rate Body mass index (BMI) Body weight Systolic blood pressure Diastolic blood pressure Provider Name and Address Organization Details Last Updated DateTime 2 170.18 cm 97.8 [degF] 99 % 99 % 117 /min 29.2 kg/m2 05970.6 2 g 120 mm[Hg] 74 mm[Hg] Hayde Andres [place] [facility] 2 10:26:24 Date Recorded Body height Body mass index (BMI) Body weight Body temperature Oxygen saturation Oxygen saturation in Arterial blood by Pulse oximetry Heart rate Systolic blood pressure Diastolic blood pressure Provider Name and Address Organization Details Last Updated DateTime 2 170.18 cm 28.6 kg/m2 13855.5 6 g 97.8 [degF] 98 % 98 % 97 /min 114 mm[Hg] 80 mm[Hg] Claudette Doe [place] [facility] 2 14:05:07 Date Recorded Body height Body mass index (BMI) Body weight Oxygen saturation Oxygen saturation in Arterial blood by Pulse oximetry Heart rate Systolic blood pressure Diastolic blood pressure Provider Name and Address Organization Details Last Updated DateTime 4 170.18 cm 29.1 kg/m2 21408.3 9 g 98 % 98 % 96 /min 126 mm[Hg] 82 mm[Hg] Kennedi Raphael MA [facility] 4 15:38:26 Date Recorded Body height Body mass index (BMI) Body weight Heart rate Oxygen saturation Oxygen saturation in Arterial blood by Pulse oximetry Body temperature Respiratory rate Systolic blood pressure Diastolic blood pressure Provider Name and Address Organization Details Last Updated DateTime 4 170.18 cm 27.6 kg/m2 85347.3 1 g 82 /min 99 % 99 % 98.3 [degF] 12 /min 119 mm[Hg] 77 mm[Hg] Claudette Sofia MA [facility] 4 15:35:07 Date Recorded Body height Body mass index (BMI) Body weight Oxygen saturation Oxygen saturation in Arterial blood by Pulse oximetry Heart rate Body temperature Systolic blood pressure Diastolic blood pressure Provider Name and Address Organization Details Last Updated DateTime 4 170.18 cm 28.6 kg/m2 74785.6 1 g 98 % 98 % 75 /min 98.1 [degF] 128 mm[Hg] 78 mm[Hg] Hayde Andres MA [facility] 4 09:19:28 Social History Question Answer Notes LastModified by Organizat ion Details LastModified Time Tobacco Smoking Status Current Every Day Smoker quit 10/01/21 but started again Claudette Doe MA [facility] 10/11/2022 14:02:13 What Is Your Level Of Alcohol Consumption? None Information not available 11/19/2014 Are You Blind Or Do You Have Difficulty Seeing? No Information not available 01/11/2021 What Is Your Level Of Caffeine Consumption? Heavy [email or web address] Information not available 10/11/2022 How Much Tobacco Do You Chew? None Information not available 11/12/2018 In The 14 Days Before Symptom Onset, Have You Had Close Contact With A Laboratory-confir med COVID-19 While That Case Was Ill? No Information not available 10/31/2021 In The 14 Days Before Symptom Onset, Have You Had Close Contact With A Person Who Is Under Investigation For COVID-19 While That Person Was Ill? No Information not available 10/31/2021 Have You Been To An Area Known To Be High Risk For COVID-19? No Information not available 10/31/2021 Are You Currently Employed? Yes Information not available 01/11/2021 Are You Deaf Or Do You Have Serious Difficulty Hearing? No Information not available 01/11/2021 What Type Of Diet Are You Following? REGULAR Information not available 11/12/2018 Which Illicit Or Recreational Drugs Have You Used? 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 Yes Information not available 10/31/2021 What Was The Date Of Your Most Recent Tobacco Screening? 08/18/2024 Information not available 08/18/2024 How Many Children Do You Have? 3 Information not available 11/19/2014 What Is Your Current Pack Years? 30ormorepack years Information not available 08/18/2024 What Is Your Relationship Status? Information not available 01/11/2021 Do You Use Your Seat Belt Or Car Seat Routinely? Yes Information not available 10/31/2021 Do You Have Smoke And Carbon Monoxide Detectors In Your Home? Yes Information not available 10/31/2021 Are You Passively Exposed To Smoke? No Information no t available 10/31/2021 How Much Tobacco Do You Smoke? 0.25 PPD Information not available 08/18/2024 Do You Feel Stressed (tense, Restless, Nervous, Or Anxious, Or Unable To Sleep At Night)? [id number] Information not available 10/31/2021 Do You Use Any Illicit Or Recreational Drugs? No Information not available 01/11/2021 Do You Use Sunscreen Routinely? Yes Information not available 10/31/2021 Has Tobacco Cessation Counseling Been Provided? Yes [email or web address] Information not available 08/04/2024 On What Date Was Tobacco Cessation Counseling Provided? 08/18/2024 Information not available 08/18/2024 How Many Years Have You Smoked Tobacco? 30 Information not available 11/12/2018 Do You Or Have You Ever Used Any Other Forms Of Tobacco Or Nicotine? No Information not available 01/11/2021 Sex: Female Functional Status Question Answer Note LastModified by Organization D etails LastModified Time Are you able to care for yourself? Yes Information n ot available 01/11/2021 What is your exercise level? None Information not available 11/12/2018 Mental Status None recorded. Family History Relationship Description Onset Age of this Age Resolved Age Notes LastModified by Organization Details LastModified Time Mother Hypertensive disorder [email or web address] Not available 06/28 14:44:38 Mother Malignant tumor of unknown origin [email or web address] Not available 06/28 14:44:38 Mother Hyperlipidem ia [email or web address] Not available 06/28 14:44:38 Brother Diabetes mellitus [email or web address] Not available 08/04 15:56:30 Brother Diabetes mellitus Not available 08/04 15:56:30 Medical History Condition Response Coronary Artery Disease N Kidney Cyst N Blood Diseases N Hyperthyroidism N Blood Transfusion N MRSA N Blood disorders N Emphysema N Blood Clots N COPD N Depression N Pneumonia N Premature N Peripheral Arterial Disease N Edema N TIA N Headaches/Migraines N Anxiety Disorder N Obesity N Polyps N Infertility N Acid Reflux (GERD) N Hematuria N Stroke N Neck Injury N Polio N Hospital Admission other than N Neurologic Disorder N Other Sleep Disorders N Rheumatoid Arthritis N Fibromyalgia N Abdominal Aortic Aneurysm Repair N Kidney Disease N Heart Conditions N Heart Disease/Heart Problems N Hospitalizations N Brain Tumors N Acne N Skin Problems N Eating Disorder N Meningitis N Constipation N Tuberculosis N Cerebral Palsy N Myocardial Infarction N Asthma N Substance Abuse N Peripheral Vascular Disease N Vertigo N Sleep Disorder N Cirrhosis N Pulmonary Embolism N Chicken Pox N Hematologic Disease N Flomax Use Past or Present N Anxiety/Depression N Thyroid Disease N Colon Cancer N Lung Disease N Glaucoma N Developmental or Behavioral Disorders N Bipolar N Pacemaker N Diverticulitis/Diverticulosis N Orthopedic Problems N Anesthesia Complications N Orthotics N Head Injury/Concussion N Congenital Anomalies N Burnett Bite N Chronic Kidney Disease N Endometriosis N Liver Disease N Schizophrenia N Dialysis N Speech Delay N Chronic Obstructive Pulmonary Disease N Parkinson's Disease N Thyroid Problems N GI Problems N Developmental Delay N Anemia N Multiple Sclerosis N Immune System Disorder N Colon Polyps N Heart Attack (CO) N Diabetes N Cardiomyopathy N Blood Transfusions N Heart Problems/Murmur N Eye Trauma N Congestive Heart Failure (CHF) N Valvular Heart Disease N Hyperlipidemia N Double Vision N Abuse/Domestic Violence N Hepatitis B N Lupus N Epilepsy/Seizures N Reflux/GERD N Aneurysm N Heart Disease N Bronchitis N Pre-Eclampsia N Hypertension N Heart Failure N Other N Gout N High Blood Pressure N Atrial Fibrillation N Kidney Stones N Head Trauma/Injury N Congenital Heart Disease N Spine Problems N Gastrointestinal Disease N Lung Mass N Sinusitis N Obstructive Sleep Apnea N Muscle, Joint, or Bone Problems N Autoimmune disease N Vision or Eye Problems N Arthritis N Blood Clot N Cancer N Seasonal allergies N Leg or Foot Ulcers N Raynaud's Disease N Aortic Aneurysm N Arrhythmia N Headaches N Heart Problems N Ambloypia N Ear or Hearing Problems N Hyperparathyroidism N Migraines N Artificial Joints N Kidney or Bladder Problems N NSAID Use N Have you had a mammogram in the last yea r? N Encephalitis N PTSD N Ulcers N Prostate Hypertrophy N Bleeding Disorder N AIDS/HIV N Urinary Tract Infection N Back Problems N Allergies N Atrial Flutter N GERD/Reflux N Hepatitis N Autism Spectrum Disorder (ASD) N Breast Cancer N Hernia N Hypothyroidism N Breast Problem N Genitourinary Disease N Deep Vein Thrombosis N Varicose Veins N Cystic Fibrosis N Hearing Loss N Developmental Problems N Carotid Disease N Vitamin D Deficiency N ADHD N Bladder or Kidney Problems N High Cholesterol N Meniers N Valvular Abnormalities N Psychiatric/Mental Health Condition N Organ Transplant N Foot Deformity N Allergies/Hayfever N Dyslipidemia N Hyponatremia N Diabetic Eye Disease N Osteoporosis/Osteopenia N Back Pain N Proteinuria N Mental Illness N Neurological Problems N Ovarian Cancer N Bedwetting N Seizures/Epilepsy N Have you had a colonoscopy in the last 1 0 years? Y Kidney Failure N Ocular trauma N Diverticulitis N Dementia N Sleep Apnea N Mental Problems N Warfarin Management N Osteoporosis N Gynecological History Statement/Question Response Abnormal Pap N Date of Last Mammogram 2022 Date of LMP On BCP's at Conception? N STIs/STDs N HPV Vaccine N Date of Last Pap Smear 10/11/2022 Age at Menarche 14 Current Control Method Tubal Ligat ion Age at First Child 18 Obstetrics History GPAL:G 3 P 3 0 0 3 Type Value Multiple Births 0 Full Term 3 Induced 0 Spontaneous 0 Premature 0 Living 3 Ectopics 0 Total 3 Past Encounters Encounter ID Performer Location Encounter Start Date Encounter Closed Date Diagnosis/Indication Diagnosis SNOMED-CT Code Diagnosis ICD10 Code [id number] Richardson Womengael (LUIS 205) [address] [facility] [address] [place] [address] 12/31/2014 11:06:09 12/31/2014 14:55:24 Gynecologic examination [id number] ÁNGEL Bowles [facility] [address] [place] [address] 07/13/2016 14:22:32 07/13/2016 15:50:12 Acute sinusitis 86204294 J01.90 Ganglion cyst 044194975 M67.40 [id number] Johnny Mcgill PA-C [facility] [address] [place] [address] 11/04/2017 10:52:21 11/04/2017 14:22:04 Adult health examination 300304199 Z00.00 Screening for malignant neoplasm of breast 962704685 Z12.31 Screening colonoscopy 44 7610266 Z12.11 Primary insomnia 9443359 F51.01 [id number] [facility] [address] [place] [address] 11/12/2017 11:47:56 11/12/2017 13:05:06 Primary insomnia 6357603 F51.01 Hyperlipidemia 40248922 E78.2 [id number] Johnny Mcgill PA-C [facility] [address] [place] [address] 10/09/2018 11:22:20 10/09/2018 11:58:12 Administration of influenza vaccine 34584517 Z23 Ganglion of wrist 413747 009 M67.432 History of smoking 80498 08924 4538262 Z87.891 Inflammati on of sacroiliac joint 58666947 M46.1 [id number] ÁNGEL Bowles [facility] [address] [place] [address] 10/16/2018 16:46:10 10/16/2018 17:38:45 Acute low back pain 010044778 M54.5 [id number] Mary Lemus MA [facility] [address] [place] [address] 11/12/2018 11:09:01 11/12/2018 12:05:25 Primary insomnia 1121170 F51.01 Generalize d anxiety disorder 61063451 F41.1 [id number] Johnny Mcgill PA-C [facility] [address] [place] [address] 11/09/2019 14:38:52 11/09/2019 16:32:09 Hypersomnia with sleep apnea 89597877 G47.31 Obstructiv e sleep apnea syndrome 16659459 G47.33 History of polyp of colon 659639243 Z86.010 Screening mammography 24 403864 Z12.31 Acute low back pain 2788 38182 M54.5 [id number] Johnny Mcgill PA-C [facility] [address] [place] [address] 01/11/2021 09:44:49 01/17/2021 08:17:28 New daily persistent headache 9884956701 67454 G44.52 Gastroesop hageal reflux disease without esophagitis 551189063 K21.9 Fatigue 31808436 R53.83 [id number] Johnny Mcgill PA-C [facility] [address] [place] [address] 01/24/2021 18:16:11 01/25/2021 10:23:31 Dyspnea 973322375 R06.02 Chronic he adache disorder 184959349 G44.89 [id number] Tracy Almeida MA [facility] [address] [place] [address] 10/31/2021 10:21:35 10/31/2021 11:08:34 Body mass index 25-29 - overweight 303254752 Z68.29 Gastroesop hageal reflux disease without esophagitis 266961067 K21.9 Mixed hyperlipidemia 267 741118 E78.2 [id number] MD Laury CUNHA (REAL ESTATE MANAGER) [address] [place] [address] 10/11/2022 13:49:49 10/15/2022 09:57:41 Screening for malignant neoplasm of cervix 594688374 Z12.4 History of polyp of colon 986498702 Z86.010 Screening for malignant neoplasm of respiratory tract 739675516 Z12.2 Z87.891 Breast tenderness 234649 07 N64.4 Tobacco user 661013501 Z 72.0 Menopausal symptom 29321 002 N95.9 [id number] Jhonny Mcgill PA-C [facility] [address] [facility] [place] [address] 01/13/2024 15:20:25 01/17/2024 11:12:32 Cough 33236123 R05.9 Upper resp iratory infection 64292068 J00 Overweight 060878547 E66 .3 Low back pain 945618184 M54.50 Acute maxi llary sinusitis 81752633 J01.01 Candidiasis of vagina 72 427962 B37.31 [id number] MD Laury CUNHA (REAL ESTATE MANAGER) [address] [place] [address] 08/04/2024 14:56:28 08/18/2024 15:05:12 Tobacco user 138944601 Z72.0 Screening for malignant neoplasm of breast 750720260 Z12.31 Adult heal th examination 397481959 Z00.01 Chronic low back pain 27 9302074 M54.50 Screening for malignant neoplasm of respiratory tract 503825548 Z12.2 F17.210 Overweight 066910658 E66 .3 Diabetes m ellitus screening 555322904 Z13.1 [id number] MD Laury CUNHA (REAL ESTATE MANAGER) [address] [place] [address] 08/18/2024 09:12:08 08/28/2024 14:27:19 Chronic low back pain 481588068 M54.50 Leukocytosis 898336165 D 72.829 Dyslipidemia 075804941 E 78.5 Health Concerns Section Related Observation LastModified by Organization Detai ls LastModified Time None Recorded Concern Status LastModified by Organization Details LastModified Time None Recorded Advance Directives Directive None Recorded Payers Encounter Date Sequence Insurance Name Policy Number Policy Carver Covered Member ID Carver Member ID Guarantor Name 10/31/2021 2 [facility] BENEFITS MANAGEMENT [id number] Charlie Alberto [id number] Chelsea Hutchison idge 10/31/2021 1 [facility] [id number] Chelsea E Egegik-Eldr idge [id number] Chelsea Egegik-Eldr idge 10/11/2022 2 [facility] BENEFITS MANAGEMENT [id number] Charlie Remy [id number] Chelsea Benitezok-Eldr idge 10/11/2022 1 [facility] [id number] Chelsae Hodges Egegik-Eldr idge [id number] Chelsea Egegik-Eldr idge 01/13/2024 2 [facility] BENEFITS MANAGEMENT [id number] Charlie Remy [id number] Chelsea Egegik-Eldr idge 01/13/2024 1 [facility] [email or web address] [facility] [employer] [place] [id number] Chelsea Egegik-Eldr idge [id number] Chelsea Egegik-Eldr idge 08/04/2024 2 [facility] BENEFITS MANAGEMENT [id number] Charlie Alberto [id number] Chelsea Benitezok-Eldr idge 08/04/2024 1 [facility] [email or web address] [facility] [employer] [place] [id number] Chelsea Egegik-Eldr idge [id number] Chelsea Benitezok-Eldr idge 08/18/2024 2 [facility] BENEFITS MANAGEMENT [id number] Charlie Alberto [id number] Chelsea Egegik-Eldr idge 08/18/2024 1 [email or web address] [facility] [employer] [place] [id number] Chelsea Egegik-Eldr idge [id number] Chelsea Egegik-Eldr idge Notes Date Note Type Note Provider Name and Address Organization Details Recorded Time 10/31/2021 text/html wants omeprazole refilled...never did stress test or colonoscopy...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 Tracy Almeida MA [facility], [place] - [facility] 10/31/2021 11:04:24 10/11/2022 text/html Annual wellness- PCP: MALAIKA Loving Concerns today- Menopausal hot flashes have been getting worse- Used to be on the patch because it was hard to remember to take a pill every day; was on it for 1-2 years- Interested in starting HRT again because it has been hard to sleep at night- Has had some hot flashes during the day; episodes last maybe 2-3 minutes- Symptoms are worse at night because they are more frequent; wakes up 3-4 times a night with feeling hot, not as much sweating at night- Has tender nodules on both breasts, which she has been noticing for the past month- No other breast changes- Has history of fibrocystic changes on mammography Infection risk- Prior testing for HIV? None on file- Prior testing for HepC? None on file- History of STIs? No- Currently having unprotected sex? Yes - with same partner for past 10 years Plans for - S/p tubal ligation in 1989- Had Mirena placed in 2010 and then stopped having periods on it; had Mirena removed in 2015 and did not have periods after that Cancer screenings- Breast cancer: Last screening 10/2017 -- wnl, recommended 1 year follow up.- Cervical cancer: Last screening 12/2014 -- NILM without HPV testing- Colon cancer: Last colonoscopy 11/2017 -- Colon polyps removed. Recommended 3 year follow up.- Lung cancer: Current smoker -- 1 ppd x 30 years. Quit smoking for 6 months because she wanted a breast reduction, and the surgeon said no surgery until she had quit smoking. Smokes because of stress and boredom. Has tried Wellbutrin and patches before, which seemed to work. Did not do well with Chantix. AUDELIA KIM MD Attn: [address] [place], [address], [facility] 10/11/2022 14:46:15 01/13/2024 text/html sinus symptoms a nd now into ear for a week..exposed to RSV couple weeks ago Johnny Mcgill PA-C Attn: [address] [place], [address], [place] [facility] 01/13/2024 16:13:36 08/04/2024 text/html Annual wellness- Transferring from MALAIKA Loving Concerns today- Would like to quit smoking. In past, has tried going cold turkey, which lasted for about 6 months. [place] crazy when tried Chantix. Nicotine patches take the edge off.- Currently smoking about 1/3 patch per day- Has chronic low back, shoulder, and hip pain. Cannot sit or stand very long due to the pain. Takes diclofenac twice daily, which takes edge off. In the past, has done PT but unsure if much benefit. Some mornings, needs help getting to edge of bed. No joint swelling. Feels like joints are stiff. 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 Cardiovascular risk- HTN: FHx in mother.- DM2: FHx in 2 brothers, paternal grandparents- HLD: FHx in mother- Personal history of CO, CVA? No- Family history of CO, CVA? FHx of CO in both grandmother, paternal aunt Infection risk- Prior testing for HIV? None on file- Prior testing for HepC? None on file- History of STIs? No- Currently having unprotected sex? Yes - with same partner for past 10 years Plans for - S/p tubal ligation in 1989- Had Mirena placed in 2010 and then stopped having periods on it; had Mirena removed in 2015 and did not have periods after that Cancer screenings- Breast cancer: 11/2022 -- normal mammo.- Cervical cancer: 12/2014, 09/2022 -- NILM without HPV testing- Colon cancer: Colonoscopy 11/2017 -- Colon polyps removed. 11/2022 -- small internal hemorrhoids; repeat in 5 years.- Lung cancer: Current smoker -- 1 ppd x >30 years. LDCT chest 12/2022 -- emphysema and multiple lung nodules. 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
--- OUTSIDE RECORDS SUMMARY | 2024-10-25 07:59 | XMS_ITS | Continuity of Care Document ---
Author Organization Laury LEWIS (3RD PRESSMAN) Address [address] [place] [address] Care Team Providers Care Superintendent Distribution Name Role Phone AUDELIA KIM [facility] Assessment No assessment recorded. Plan of Treatment Reminders Order Date Submit Date Provider Last Modified By Organization Details Last Modified Time Details Appointments ANY 15 2024 08:30A M AUDELIA KIM MD Not available Not available Not available Lab CBC w/ auto diff 2023 [facility], [address] [place] [address], [address], [place], [address], 08/19/2024 03:36:19 Referral physical therapist referral - chronic low back pain 2023 [facility], [address] [place] [address], [address], 09/02/2024 14:17:22 Procedures None recorded. Surgeries None recorded. Imaging None recorded. Medication Orders cyclobenz aprine 5 mg tablet 2023 [id number], [address], [place], [place], [phone], 08/18/2024 10:48:26 atorvasta tin 10 mg tablet 2023 [facility][id number], [address], [place], [place], [id number], 08/18/2024 09:56:29 Patient TargetsNo targets recorded. Patient InstructionsNo instructions recorded. Reason for Referral Physical Therapist Referral for Chronic low back pain chronic low back pain Referring Physician: Audelia Kim, Family Medicine, Encounter Date: 08/18/2024 Results Created Date Observation Date Name Description Value Unit Range Abnormal Flag Note LastModifiedBy Organization Detail LastModifiedTime 08/09/2008/06/2024 XR, sacro iliac joint (s) No observ ation record ed. [address] , [place], [address], 08/11/2024 16:31:18 10/12/20 24 10/05/2024 LDCT, chest , for lung cance r scree joes No observ ation record ed. [address] [place], [address], 10/20/2024 13:26:30 10/18/20 24 10/18/2024 XR, chest , 2 view No observ ation record ed. [email or web address] [facility] [address], [place], [address], 10/19/2024 14:41:03 Result Notes None recorded. Problems Name Problem SNOMED Code Status Onset Date Resolution Date Notes Provider Name and Address Organization Details Recorded Time Menopausal symptom 72055660 Active 2021 AUDELIA KIM MD Attn: Moy g,[address] [facility], [place], [address], [facility] - [facility] 2 14:44:52 Tobacco user 239808403 Active 2021 AUDELIA KIM MD Attn: Accountin g,[address] [facility], [place], [address], [place] - [facility] 2 14:44:54 Breast tenderness 85059972 Active 2021 AUDELIA KIM MD Attn: Moy g,[address] [facility], [place], [address], [facility] - [facility] 2 14:44:47 History of polyp of colon 394963721 Active 2021 AUDELIA KIM MD Attn: Accountzaire toro,[address] [facility], [place], [address], [place] [facility] 2 14:44:50 Multiple nodules of lung 438865296 Active 2022 AUDELIA KIM MD Attn: Accountzaire g,[address] [facility], [place], [address], [place] [facility] 3 18:22:03 Pulmonary emphysema 09568599 Active 2022 AUDELIA KIM MD Attn: Accountzaire g,[address] [facility], [place], [address], [place] [facility] 3 18:22:15 Dyslipidemia 123697614 Active 2023 AUDELIA KIM MD Attn: Moy toro,[address] [facility], [place], [address], [place] [facility] 4 09:56:26 Chronic low back pain 708117923 Active 2023 AUDELIA KIM MD Attn: Accountzaire g,[address] [facility], [place], [address], [place] [facility] 4 10:45:00 Acute sinusitis 60210474 Active Tracy Almeida MA null, [place] [facility] 1 09:51:24 Ganglion cyst 579387624 Active Tracy Almeida MA null, [place] - [facility] 1 09:51:24 Problem Notes None recorded. Procedures Surgical History Date Name Laterality Status Provider Name and Address Organization Details Recorded Time 12/19/19 23 colonoscopy completed ELLIOT Latif - [facility] 08/18/2024 09:24:33 11/30/19 23 Date of Last Mammogram completed ELLIOT Latif - [facility] 08/18/2024 09:22:48 10/11/20 22 Date of Last Pap Smear completed ELLIOT Don - [facility] 08/04/2024 15:45:09 12/13/19 18 colonoscopy completed ELLIOT Quezada - [facility] 11/12/2018 11:50:21 01/01/20 15 IUD Removal completed Armando Almeida MD Attn: Accounting,[address] , [place], [address], [facility] 12/31/2014 12:24:51 10/28/18 90 Tubal Ligation completed Karli Stallings [facility] 11/19/2014 10:30:59 repair of shoulder completed Mary Lemus MA [facility] 11/12/2018 11:50:35 wrist repair completed Mary Lemus MA [facility] 11/12/2018 11:50:41 Imaging Results None recorded. Procedure Notes None recorded. Medical Equipment None [...] Not Available Not Available Not Available azithromy baldev 500 mg tablet Take 1 tablet every [...] Available Vitals Date Recorded Body height Body mass index (BMI) Body weight Oxygen saturation Oxygen saturation in Arterial blood by Pulse oximetry Heart rate Body temperature Systolic blood pressure Diastolic blood pressure Provider Name and Address Organization Details Last Updated DateTime 4 170.18 cm 28.6 kg/m2 65772.6 1 g 98 % 98 % 75 /min 98.1 [degF] 128 mm[Hg] 78 mm[Hg] Hayde Andres [place] [facility] 4 09:19:28 Social History Question Answer Notes LastModified by Organizat ion Details LastModified Time Tobacco Smoking Status Current Every Day Smoker quit 10/01/21 but started again Claudette Doe MA null, [place] - [facility] 10/11/2022 14:02:13 What Is Your Level Of [...] 11/12/2018 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 [id number] Information not available 10/31/2021 Do You Use [...] Not available 06/28 14:44:38 Brother Diabetes mellitus [email or web address] Not available 08/04 15:56:30 Brother Diabetes mellitus [email or web address] Not available 08/04 15:56:30 Medical History Condition Response Coronary Artery Disease N Kidney Cyst N Blood Diseases N Hyperthyroidism N Blood Transfusion N MRSA N Blood disorders N Emphysema N Blood Clots N COPD N Depression N Pneumonia N Premature N Peripheral Arterial Disease N Edema N TIA N Headaches/Migraines N Anxiety Disorder N Obesity N Infertility N Polyps N Acid Reflux (GERD) N Hematuria N [...] Disorder N Colon Polyps N Heart Attack (DC) N Diabetes N Cardiomyopathy N Blood Transfusions [...] Diagnosis/Indication Diagnosis SNOMED-CT Code Diagnosis ICD10 Code [id number] MD Laury CUNHA (3RD PRESSMAN) [address] [place] [address] 08/04/2024 14:56:28 08/18/2024 15:05:12 Tobacco user 884010413 Z72.0 Screening for malignant neoplasm of breast 616662554 Z12.31 Adult heal th examination 771789852 Z00.01 Chronic low back pain 27 4726301 M54.50 Screening for malignant neoplasm of respiratory tract 675529487 Z12.2 F17.210 Overweight 514450431 E66 .3 Diabetes m ellitus screening 944185903 Z13.1 [id number] MD Laury CUNHA (3RD PRESSMAN) [address] [place] [address] 08/18/2024 09:12:08 08/28/2024 14:27:19 Chronic low back pain 918347159 M54.50 Leukocytosis 211577401 D 72.829 Dyslipidemia 423664734 E 78.5 Health Concerns Section Related Observation LastModified by Organization Detai ls LastModified Time None Recorded Concern Status LastModified by Organization Details LastModified Time None Recorded Payers Encounter Date Sequence Insurance Name Policy Number Policy Carver Covered Member ID Carver Member ID Guarantor Name 08/18/2024 2 [employer] [facility] BENEFITS MANAGEMENT [id number] Charlie Alberto [id number] Chelsea Hutchison idge 08/18/2024 1 [facility] [employer] [facility] [place] [id number] Chelsea Hutchison idge [id number] Chelsea Hutchison idge Notes Date Note Type Note Provider Name and Address Organization Details Recorded Time 08/18/2024 text/html Joint pain- Low back pain [...] CBC, CMP, A1c AUDELIA KIM MD Attn: [address] [place], [address], [facility] 08/18/2024 10:56:52 OBGyn Episode No OBEpisode recorded.
--- OUTSIDE RECORDS SUMMARY | 2024-10-25 08:00 | XMS_ITS | Encounter Summary ---
Author Organization [facility] Healthcare Address [address] [place] [address] Care Team Providers Care Foxer Name Role Phone Johnny Mcgill Primary Care Provider [phone] Encounter Details Date Type Department Care Team (Late st Contact Info) Description 01/17/[address] [address] Kiera Rodriguez RT Social History Tobacco Use Types Packs/Day Years Used Date Smoking Tobacco: Every Day Cigarettes 1 25 Smokeless Tobacco: Never Alcohol Use Standard Drinks/Week Comments No 0 (1 standard drink = 0.6 oz pur e alcohol) Comments No Sex and Gender Information Value Date Recorded Sex Assigned at Not on file Legal Sex Female 11:50 PM RIG HAND Gender Identity Not on file Sexual Orientation Not on file documented as of this encounter Miscellaneous Notes * Telephone Encounter - Kiera Rodriguez RT - 01/17/2021 1:05 PM CDT Appointment confirmed documented in this encounter Plan of Treatment Not on file documented as of this encounter Visit Diagnoses Not on filedocumented in this encounter Care Teams Foxer Relationship Specialty Start Date End Date Johnny Mcgill PA [address] [place] [address] PCP - General 11/04/17 06/14/21 documented as of this encounter
--- OUTSIDE RECORDS SUMMARY | 2024-10-25 08:00 | XMS_ITS | Encounter Summary ---
Author Organization [facility] Healthcare Address [address] [place] [address] Care Team Providers Care Supply Chain Technician Name Role Phone Johnny Mcgill Primary Care Provider [phone] Encounter Details Date Type Department Care Team (Late st Contact Info) Description 12/13/2017 9:45 AM FAMILY HELPER - 12/13/2017 10:15 AM [facility] Surgery [address] [address] Scooby Saez MD [address] [place] [id number] COLON REMOVAL HOT BIOPSY Surgery Details Date/Time Status Location OR Service Patient Class Case Class Case Type Trauma Case? 12/13/2017 9:45 AM Posted [facility] ENDOSCOPY GI 02 Gastroenterology Outpatient Elective Panel 1 Procedure LRB Anes Op Region Wound Class Comments COLON REMOVAL HOT BIOPSY N/A Monitor Anesthesia Care Colon Class II - Clean Contaminated Surgeon Surgeon Role Service Panel Scooby Saez MD Primary Gastroenterology 1 documented in this encounter Social History Tobacco Use Types Packs/Day Years Used Date Smoking Tobacco: Every Day Cigarettes 1 25 Smokeless Tobacco: Never Tobacco Cessation:Ready to Q uit: No; Counseling Given: No Alcohol Use Standard Drinks/Week Comments No 0 (1 standard drink = 0.6 oz pur e alcohol) Comments No Sex and Gender Information Value Date Recorded Sex Assigned at Not on file Legal Sex Female 11:50 PM FAMILY HELPER Gender Identity Not on file Sexual Orientation Not on file documented as of this encounter Last Filed Vital Signs Vital Sign Reading Time Taken Comments Blood Pressure 96/66 12/13/2017 10:11 AM FAMILY HELPER Pulse 77 12/13/2017 10:11 AM FAMILY HELPER Temperature 36 ??C (96.8 ??F) 12/13/2017 8:58 AM FAMILY HELPER Respiratory Rate 19 12/13/2017 10:11 AM FAMILY HELPER Oxygen Saturation 100% 12/13/2017 10:11 AM FAMILY HELPER Inhaled Oxygen Concentration - - Weight 72.6 kg (160 lb) 12/13/2017 8:58 AM FAMILY HELPER Height 170.2 cm (5' 7 ) 12/13/2017 8:58 AM FAMILY HELPER Body Mass Index 25.06 12/13/2017 8:58 AM FAMILY HELPER documented in this encounter Discharge Disposition Disposition Code Departure Means Destination Discharge to home or self care documented in this encounter H&P Notes * Scooby Saez MD - 12/13/2017 10:17 AM CST History and Physical Date of visit: 12/13/2017 Subjective: Patient is a 52 y.o. female presented for evaluation for screening for colon cancer. She has h/o polyps. Past Medical History: Diagnosis Date ??? Colon polyp ??? Fibrocystic breast ??? Smoking Past Surgical History: Procedure Laterality Date ??? COLONOSCOPY 11/2015 ??? ECTOPIC SURGERY 1989 tubal ??? TUBAL LIGATION 1990 No prescriptions prior to admission. No Known Allergies Social History Substance Use Topics ??? Smoking status: Current Every Day Smoker Packs/day: 1.00 Years: 25.00 ??? Smokeless tobacco: Never Used ??? Alcohol use No Family History Problem Relation Age of Onset ??? Other Other Family history of Cancer, cervical; ??? Diabetes Other Family history of Diabetes mellitus; Physical Exam: Patient is awake and answers well. Eyes: no jaundice. Lungs: CTA anteriorly. ENT: no mouth ulcers. Abdomen: soft, no distention, no tenderness, bowel sounds positive. Extremities: no edema. Skin: no rash. GI IMPRESSION: 1. Screening for colon cancer GI PLAN/RECOMMENDATIONS: 1. colonoscopy Scooby Saez MD LY HELPER documented in this encounter Procedure Notes * Scooby Saez MD - 12/13/2017 9:44 AM CSTAssociated Order(s): COLONOSCOPY [facility] Patient Name: Chelsea Alberto Procedure Date: 12/13/2017 9:44 AM Date of : 1965 Admit Type: Outpatient Age: 52 Gender: Female Attending MD: Scooby Saez MD Room: [facility] ENDOSCOPY ROOM 2 Note Status: Finalized Patient Profile: 52 WF with h/o polyps 2 years ago, her uncle had colon cancer. Procedure: Colonoscopy Indications: High risk colon cancer surveillance: Personal history of colonic polyps Referring MD: MALAIKA Arciniega Providers: Scooby Saez MD Impression: - One 10 mm polyp in the descending colon. Resected and retrieved. - One 6 mm polyp in the sigmoid colon. Resected and retrieved. - One 5 mm polyp in the rectum. Resected and retrieved. Recommendation: - Await pathology results. - Repeat colonoscopy in 3 years for surveillance. Medicines: Monitored Anesthesia Care Complications: No immediate complications. Estimated Blood Loss: Estimated blood loss: none. Procedure: Pre-Anesthesia Assessment: - Prior to the procedure, a History and Physical was performed, and patient medications and allergies were reviewed. The patient's tolerance of previous anesthesia was also reviewed. The risks and benefits of the procedure and the sedation options and risks were discussed with the patient. All questions were answered, and informed consent was obtained. Prior Anticoagulants: The patient has taken no previous anticoagulant or antiplatelet agents. ASA Grade Assessment: II - A patient with mild systemic disease. After reviewing the risks and benefits, the patient was deemed in satisfactory condition to undergo the procedure. The benefits, risks and alternatives of the procedure and sedation were discussed and informed consent was obtained. All questions were answered. Please refer to the signed informed consent document in the medical record. The scope was passed under direct vision. The Pediatric Colonoscope PCF-H190L [id number] was introduced through the anus and advanced to the the cecum, identified by appendiceal orifice and ileocecal valve. The colonoscopy was performed without difficulty. The patient tolerated the procedure well. The quality of the bowel preparation was good. Findings: The perianal and digital rectal examinations were normal. The cecum was normal. A 10 mm polyp was found in the descending colon. The polyp was semi-sessile. The polyp was removed with a hot snare. Resection and retrieval were complete. A 6 mm polyp was found in the sigmoid colon. The polyp was semi-sessile. The polyp was removed with a cold snare. Resection and retrieval were complete. A 5 mm polyp was found in the rectum. The polyp was sessile. The polyp was removed with a cold snare. Resection and retrieval were complete. Electronically signed by Scooby Saez M.D. Scooby Saez MD 12/13/2017 10:22:02 AM Number of Addenda: 0 Note Initiated On: 12/13/2017 9:44 AM Procedure Code(s): --- Professional --- 45451, Colonoscopy, flexible; with removal of tumor(s), polyp(s), or other lesion(s) by snare technique Diagnosis Code(s): --- Professional --- Z86.010, Personal history of colonic polyps D12.4, Benign neoplasm of descending colon D12.5, Benign neoplasm of sigmoid colon K62.1, Rectal polyp CPT copyright 2014 [employer]. All rights reserved. The codes documented in this report are preliminary and upon hospital coder review may be revised to meet current compliance requirements. Recognized by the [employer] for promoting quality in endoscopy LY HELPER documented in this encounter Miscellaneous Notes * Perioperative Nursing Note - Haritha Nguyễn, RN - 12/13/2017 10:47 AM FAMILY HELPER [address] Dr Saez was here and talked to pt and her . LY HELPER documented in this encounter Plan of Treatment Not on file documented as of this encounter Procedures Procedure Name Priority Date/Time Associated Diagnosis Comments SURGICAL PATHOLOGY Routine 12/13/2017 11 :50 AM FAMILY HELPER COLONOSCOPY 12/13/2017 9:44 AM FAMILY HELPER COLON REMOVAL HOT BIOPSY 12/13/2017 9:43 AM FAMILY HELPER COLONOSCOPY HX OF POLYPS Z86.010 SURGICAL PATHOLOGY 12/13/2017 12 :00 AM FAMILY HELPER documented in this encounter Results * Surgical pathology (12/13/2017 11:50 AM FAMILY HELPER) 12/13/2017 11:5 0 AM FAMILY HELPER 12/13/2017 11:50 AM FAMILY HELPER Narrative 12/16/2017 12:05 PM FAMILY HELPER [facility] Department of Pathology [address] [place] [id number] Final Report ?Patient Name: CHELSEA FERRELL Address: [address] [place] [address] Service: Gastro ??[place], [place] ??[facility] Location: [facility] Taken: 12/13/2017 Gender: F Received 12/13/2017 : 1965 (Age: 52) Hospital #: [id number] Accessioned: 12/13/2017 ?? Patient Type: [facility] SDS Reported 12/16/2017 Physician(s): Dr. Scooby Saez M.D. ?? Diagnosis: A. ??Descending colon polyp, biopsy: ? - Tubular adenoma. - Negative for high-grade dysplasia. B. ??Sigmoid colon polyp, biopsy: ? - Tubular adenoma. - Negative for high-grade dysplasia. C. ??Rectal polyp, biopsy: ? - Hyperplastic polyp. ?? Garcia Antonio M.D. ??Report Electronically Reviewed and Signed Out By ??Garcia Antonio M.D. ??12/16/2017 12:05:03 Specimen(s) Received: A: Colon, biopsy B: Colon, biopsy C: Rectum, Biopsy Microscopic Description: A. ?Sections show a tubular adenoma. ??There is no evidence of high-grade dysplasia or invasive carcinoma. B. ?Sections show a tubular adenoma. ??There is no evidence of high-grade dysplasia or invasive carcinoma. ? C. ?Sections show a microvesicular hyperplastic polyp. ??There is no evidence of dysplasia or carcinoma. Clinical History: History of polyps. ??Colonoscopy. Gross Description: The specimen is submitted in three containers labeled with the patient's name. ? Part A is labeled descending polyp . ??It is submitted in formalin and consists of two fragments of gandhi soft tissue that range between 0.2 and 0.3 cm in maximum dimensions. ??All submitted in cassette A. Part B is labeled sigmoid colon polyp . ??It is submitted in formalin and consists of one fragment of gandhi soft tissue that measure 0.4 cm in maximum dimensions. ??All submitted in cassette B. Part C is labeled rectal polyp . ??It is submitted in formalin and consists of one fragment of gandhi soft tissue that 0.3 cm in maximum dimensions. ??All submitted in cassette C. ??Garcia Kessler M.D./Pb Carpio Complete report with images are only be viewable in the PDF report The performance characteristics of some immunohistochemical stains, fluorescence in-situ hybridization tests and immunophenotyping by flow cytometry cited in this report (if any) were determined by the Surgical Pathology Department at [facility] as part of an ongoing training and quality manager program and in compliance with federally mandated regulations drawn from the Clinical Laboratory Improvement Act of 1988 (CLIA '88). ??Some of these tests rely on the use of analyte specific reagents and are subject to specific labeling requirements by the US Food and Drug Administration. ??Such diagnostic tests may only be performed in a facility that is certified by the Department of Health and Human Services as a high complexity laboratory under CLIA '88. ??The FDA has determined that such clearance or approval is not necessary. ??This test is used for clinical purposes. ??It should not be regarded as investigational or for research. ??Nevertheless, federal rules concerning the medical use of analyte specific reagents require that the following disclaimer be attached to the report: This test was developed and its performance characteristics determined by [facility]. ??It has not been cleared or approved by the U. S. Food and Drug Administration. Scooby Saez MD LAB PATHOLOGY ORDERABLES F inal Result * COLONOSCOPY (12/13/2017 9:44 AM FAMILY HELPER) Anatomical Region Laterality Modality Other Narrative Procedure Note Scooby Saez MD - 12/13/2017 9:44 AM CST [facility] Patient Name: Chelsea Alberto Procedure Date: 12/13/2017 9:44 AM Date of : 1965 Admit Type: Outpatient Age: 52 Gender: Female Attending MD: Scooby Saez MD Room: [facility] ENDOSCOPY ROOM 2 Note Status: Finalized Patient Profile: 52 WF with h/o polyps 2 years ago, her uncle hadcolon cancer. Procedure: Colonoscopy Indications: High risk colon cancer surveillance: Personalhistory of colonic polyps Referring MD: MALAIKA Arciniega Providers: Scooby Saez MD Impression: - One 10 mm polyp in the descending colon. Resectedand retrieved. - One 6 mm polyp in the sigmoid colon. Resected and retrieved. - One 5 mm polyp in the rectum. Resected andretrieved. Recommendation: - Await pathology results. - Repeat colonoscopy in 3 years for surveillance. Medicines: Monitored Anesthesia Care Complications: No immediate complications. Estimated Blood Loss: Estimated blood loss: none. Procedure: Pre-Anesthesia Assessment: - Prior to the procedure, a History and Physical was performed, and patient medications and allergieswere reviewed. The patient's tolerance of previous anesthesia was also reviewed. The risks and benefitsof the procedure and the sedation options and riskswere discussed with the patient. All questions were answered, and informed consent was obtained. Prior Anticoagulants: The patient has taken no previous anticoagulant or antiplatelet agents. ASA Grade Assessment: II - A patient with mild systemicdisease. After reviewing the risks and benefits, the patientwas deemed in satisfactory condition to undergo the procedure. The benefits, risks and alternatives of theprocedure and sedation were discussed and informed consent was obtained. All questions were answered. Please referto the signed informed consent document in the medical record. The scope was passed under direct vision.The Pediatric Colonoscope PCF-H190L [id number] was introduced through the anus and advanced to the the cecum, identified by appendiceal orifice andileocecal valve. The colonoscopy was performed without difficulty. The patient tolerated the procedurewell. The quality of the bowel preparation was good. Findings: The perianal and digital rectal examinations were normal. The cecum was normal. A 10 mm polyp was found in the descendingcolon. The polyp was semi-sessile. The polyp was removed with a hot snare. Resection and retrieval were complete. A 6 mm polyp was found in the sigmoid colon. The polyp wassemi-sessile. The polyp was removed with a cold snare. Resection and retrieval were complete. A 5 mm polyp was found in the rectum. The polyp was sessile. Thepolyp was removed with a cold snare. Resection and retrieval werecomplete. Electronically signed by Scooby Saez M.D. Scooby Saez MD 12/13/2017 10:22:02 AM Number of Addenda: 0 Note Initiated On: 12/13/2017 9:44 AM Procedure Code(s): --- Professional --- 07664, Colonoscopy, flexible; with removal of tumor(s), polyp(s), or other lesion(s) by snare technique Diagnosis Code(s): --- Professional --- Z86.010, Personal history of colonic polyps D12.4, Benign neoplasm of descending colon D12.5, Benign neoplasm of sigmoid colon K62.1, Rectal polyp CPT copyright 2014 [employer]. All rights reserved. The codes documented in this report are preliminary and upon hospital coder reviewmay be revised to meet current compliance requirements. Recognized by the [employer] for promoting quality in endoscopy Scooby Saez MD ENDOSCOPY PROCEDURES Final Result * SURGICAL PATHOLOGY (12/13/2017 12:00 AM FAMILY HELPER) Narrative 12/13/2017 12:00 AM FAMILY HELPER Ordered by an unspecified provider. Historical Provider LAB PATHOLOGY ORDERABLES Final Result documented in this encounter Visit Diagnoses Not on filedocumented in this encounter Administered Medications Inactive Administered Medications - up to 3 most recent administrations Medication Order MAR Action Action Date Dose Rate Site ondansetron (ZOFRAN) injection 4 mg 4 mg, intravenous, Every 30 min PRN, nausea, vomiting, Starting on Sat12/13/17 at 0904, For 2 doses, Recovery (GI), Indications: Nausea and VomitingIndications:Nause a and Vomiting sodium chloride 0.9% flush 0.5-20 mL 0.5-20 mL, intra-catheter, As needed, line care, Starting on Sat12/13/17 at 0904, Pre-Op, Flush volume based on line type and size. Flush before and after each use. , Indications: FlushingIndications:Flush ing sodium chloride 0.9% infusion 30 mL/hr, intravenous, Continuous, Starting on Sat12/13/17 at 0945, Pre-Op New Bag 12/13/2017 9:40 AM FAMILY HELPER 30 mL/hr 30 mL/hr Right Hand sodium chloride 0.9% infusion 125 mL/hr, intravenous, Continuous, Starting on Sat12/13/17 at 0945, Recovery (GI) New Bag 12/13/2017 9:52 AM FAMILY HELPER documented in this encounter Discontinued Medications Medication Sig Discontinue Reason Start Date End Da te zolpidem (AMBIEN) 5 mg tabletIndications:Slee p-Onset Insomnia Take 5 mg by mouth nightly as needed. Discontinued by another clinician 11/04/2017 12/13/2017 documented as of this encounter Historical Medications * This list may reflect changes made after this encounter. zolpidem (AMBIEN) 5 mg tabletIndications :Sleep-Onset Insomnia Take 5 mg by mouth nightly as needed. 0 11/04/2017 12/13/2017 added in this encounter Active and Recently Administered Medications Times are shown in FAMILY HELPER. Continuous Medication Order 12/11/2017 12/12/2017 12/13/2017 sodium chloride 0.9% infusion 30 mL/hr, intravenous, Continuous, Starting on Sat12/13/17 at 0945, Pre-Op 0940 (New Bag - Prov ider: Haritha Nguyễn RN) sodium chloride 0.9% infusion 125 mL/hr, intravenous, Continuous, Starting on Sat12/13/17 at 0945, Recovery (GI) 0952 (New Bag - Prov ider: Cayden Godoy MD)1009 (Anesthesia Volume Adjustment - Provider: Cayden Godoy MD) PRN Medication Order 12/11/2017 12/12/2017 12/13/2017 ondansetron (ZOFRAN) injection 4 mg 4 mg, intravenous, Every 30 min PRN, nausea, vomiting, Starting on Sat12/13/17 at 0904, For 2 doses, Recovery (GI), Indications: Nausea and Vomiting sodium chloride 0.9% flush 0.5-20 mL 0.5-20 mL, intra-catheter, As needed, line care, Starting on Sat12/13/17 at 0904, Pre-Op, Flush volume based on line type and size. Flush before and after each use. , Indications: Flushing documented in this encounter Orders Medications Ordered That Saúl ht Not Have Been Administered Count Last Ordered Date First Ordered Date ondansetron (ZOFRAN) injection 4 mg 1 12/13 sodium chloride 0.9% flush 0.5-20 mL 1 11/28 sodium chloride 0.9% infusion 1 12/13/2017 Lab Orders Without Results Count Last Ordered D ate First Ordered Date SURGICAL PATHOLOGY 1 12/13/2017 Discharge Count Last Ordered Date First Orde red Date DISCHARGE PATIENT 1 12/13/2017 documented in this encounter Care Teams Supply Chain Technician Relationship Specialty Start Date End Date Johnny Mcgill PA [address] [place] [address] PCP - General 11/04/17 06/14/21 documented as of this encounter
--- OUTSIDE RECORDS SUMMARY | 2024-10-25 08:00 | XMS_ITS | Encounter Summary ---
Author Organization [facility] Address [address] [place] [address] Care Team Providers Care Power Machine Operator Name Role Phone Carlyn Mcgill Primary Care Provider Reason for Referral * Diagnostic Imaging (Routine) - Closed Specialty Diagnoses / Procedures Referred By Panfilo ventura Referred To Contact Radiology Diagnoses New daily persistent headache (ndph) Procedures CT Head WO Contrast Carlyn Mcgill PA [address] [place] [address] Phone: tel: fax: [address] [phone] Referral ID Status Reason Start Date Expiration Date Visits Re quested Visits Authorized [id number] Closed 01/11/2021 02/10/2022 1 1 Reason for Visit * Diagnostic Imaging (Routine) - Closed Specialty Diagnoses / Procedures Referred By Contac t Referred To Contact Radiology Diagnoses New daily persistent headache (ndph) Procedures CT Head WO Contrast Carlyn Mcgill PA [address] [place] [address] Phone: tel: fax: [address] [phone] Referral ID Status Reason Start Date Expiration Date Visits Re quested Visits Authorized [id number] Closed 01/11/2021 02/10/2022 1 1 Encounter Details Date Type Department Care Team ([facility] st Contact Info) Description 01/18/2021 6:50 AM CDT - 01/18/2021 11:59 PM CDT Hospital Encounter [facility] [address] [place] [address] Du Shannon MD [address] [facility] [address] [place] [address] Carlyn Mcgill, MALAIKA [address] [place] [address] New daily persistent headache (ndph) Discharge Disposition: Discharge to home or self care Social History Tobacco Use Types Packs/Day Years Used Date Smoking Tobacco: Every Day Cigarettes 1 25 Smokeless Tobacco: Never Alcohol Use Standard Drinks/Week Comments No 0 (1 standard drink = 0.6 oz pur e alcohol) Comments No Sex and Gender Information Value Date Recorded Sex Assigned at Not on file Legal Sex Female 11:50 PM NUTRITIONAL HEALTH COACH Gender Identity Not on file Sexual Orientation Not on file documented as of this encounter Discharge Disposition Disposition Code Departure Means Destination Discharge to home or self care documented in this encounter Plan of Treatment Not on file documented as of this encounter Procedures Procedure Name Priority Date/Time Associated Diagnosis Comments CT HEAD WO CONTRAST Schedule Routine, Read Routine (OP Routine) 01/18/2021 7:14 AM CDT New daily persistent headache (ndph) documented in this encounter Results * CT Head WO Contrast (01/18/2021 7:14 AM CDT) Anatomical Region Laterality Modality Head and Neck N/A Computed Tomogra phy 01/18/2021 7:18 AM CDT Impressions 01/18/2021 7:19 AM CDT 1. ??No definite evidence of acute intracranial hemorrhage. Electronically signed by: Blade Walls D.O. Narrative 01/18/2021 7:19 AM CDT EXAMINATION: ??CT HEAD WO CONTRAST ORDERING HEALTHCARE PROVIDER: CARLYN MCGILL HISTORY: G44.52. Upon exertion patient gets a throbbing headache at the top of her head. When she sites down and relaxes the headache goes away. ?? COMPARISON:None TECHNIQUE: Contiguous axial sections of the head were obtained without the prior administration of intravenous contrast. ??Automated exposure control was used as dose optimization technique for this examination. FINDINGS: The ventricles are normal in size and position. ??There is mild age-related cortical atrophy. ??No focal areas of hemorrhage or mass effect are identified. ??There are no extra-axial fluid collections seen. The calvarium appears intact. The visualized paranasal sinuses and mastoid air cells are clear. Procedure Note Blade Walls, DO - 01/18/2021 EXAMINATION: CT HEAD WO CONTRAST ORDERING HEALTHCARE PROVIDER: CARLYN MCGILL HISTORY: G44.52. Upon exertion patient gets a throbbing headache at the top of her head. When she sites down and relaxes the headache goes away. COMPARISON:None TECHNIQUE: Contiguous axial sections of the head were obtained without the prior administration of intravenous contrast. Automated exposure control was used as dose optimization technique for this examination. FINDINGS: The ventricles are normal in size and position. There is mild age-related cortical atrophy. No focal areas of hemorrhage or mass effect are identified. There are no extra-axial fluid collections seen. The calvarium appears intact. The visualized paranasal sinuses and mastoid air cells are clear. IMPRESSION: 1. No definite evidence of acute intracranial hemorrhage. Electronically signed by: Blade Walls D.O. Carlyn DAI IMG CT PROCEDURES Final Resul t documented in this encounter Visit Diagnoses Diagnosis New daily persistent headache (ndph) documented in this encounter Care Teams Power Machine Operator Relationship Specialty Start Date End Date Carlyn Mcgill PA [address] [place] [address] PCP - General 11/04/17 06/14/21 documented as of this encounter
--- OUTSIDE RECORDS SUMMARY | 2024-10-25 08:00 | XMS_ITS | Continuity of Care Document ---
Author Organization [facility] ([facility]) Address [address] [place] [address] Care Team Providers Care Library Services Coordinator Name Role Phone OLEGARIO LEON [facility] [place] Assessment No assessment recorded. Plan of Treatment Reminders Order Date Submit Date Provider Last Modified By Organization Details Last Modified Time Details Appointments ANY 15 2024 08:30A M OLEGARIO LEON MD Not available Not available Not available Lab inflammat ion panel, serum or plasma 2023 [facility], [address] [facility], [address], [place], [address], 08/05/2024 08:37:56 lipid panel, serum 2023 [facility], [address] [facility], [facility] [address], [place], [address], 08/05/2024 08:37:57 CMP, serum or plasma 2023 [facility], [address] [facility], [facility], [place], [address], 08/05/2024 08:37:59 CBC 2023 [facility], [address], [place], [address], 08/05/2024 08:38:01 HbA1c (hemoglob in A1c), blood 2023 [facility], [address] [facility], [facility], [place], [address], 08/05/2024 08:38:00 Referral None recorded. Procedures None recorded. Surgeries None recorded. Imaging XR, sacroilia c joint(s) - bilateral SI joint pain 2023 [facility], [address] [place], [address], 08/09/2024 13:41:17 LDCT, chest, for lung cancer [...] for over 30 years. 2023 [facility] Scheduling, [address] [place], [address], 10/12/2024 10:31:01 MAMMO, screening , digital, bilateral 2023 marissa [facility] Scheduling, [address] [place], [address], 09/09/2024 17:26:43 Medication Orders nicotine 14 mg/24 hr daily transderm al patch 2023 [id number], [address], [place], [id number], 08/04/2024 17:01:01 nicotine 10 mg inhalatio n cartridge 2023 [id number], [address], [place], [place], [id number], 08/18/2024 09:22:04 Patient TargetsNo targets recorded. Patient Instructions Encounter Date Encounter Id Patient Instructions Last Modified By Organization Details Last Modified Time 08/04/2024 [id number] smoking cessatio n counseling, greater than 3 minutes up to 10 minutes* [email or web address] Not available 08/04/2024 16:23:08 A healthy lifestyle: care instructions Not available 08/04/2024 16:12:30 Reason for Referral None Reported. Results Created Date Observation Date Name Description Value Unit Range Abnormal Flag Note LastModifiedBy Organization Detail LastModifiedTime 08/09/2008/06/2024 XR, sacro iliac joint (s) No observ ation record ed. [address] [place], [address], 08/11/2024 16:31:18 10/12/20 24 10/05/2024 LDCT, chest , for lung cance r scree jose No observ ation record ed. [address] [place], [address], 10/20/2024 13:26:30 10/18/20 24 10/18/2024 XR, chest , 2 view No observ ation record ed. [email or web address] [facility] [address], [place], [address], 10/19/2024 14:41:03 Result Notes None recorded. Problems Name Problem SNOMED Code Status Onset Date Resolution Date Notes Provider Name and Address Organization Details Recorded Time Menopausal symptom 48534158 Active 2021 OLEGARIO LEON MD Attn: Moy g,[address] [facility], [place], [address], [facility] - [facility] 2 14:44:52 Tobacco user 888575402 Active 2021 OLEGARIO LEON MD Attn: Moy g,[address] [facility], [place], [address], [place] - [facility] 2 14:44:54 Breast tenderness 56362937 Active 2021 OLEGARIO LEON MD Attn: Moy toro,[address] [facility], [place], [address], [place] - [facility] 2 14:44:47 History of polyp of colon 920698610 Active 2021 OLEGARIO LEON MD Attn: Moy toro,[address] [facility], [place], [address], [place] - [facility] 2 14:44:50 Multiple nodules of lung 676794855 Active 2022 OLEGARIO LEON MD Attn: Moy toro,[address] [facility], [place], [address], [place] - [facility] 3 18:22:03 Pulmonary emphysema 41263413 Active 2022 OLEGARIO LEON MD Attn: Moy toro,[address] [facility], [place], [address], [place] - [facility] 3 18:22:15 Dyslipidemia 898575104 Active 2023 OLEGARIO LEON MD Attn: Moy toro,[address] [facility], [place], [address], [place] - [facility] 4 09:56:26 Chronic low back pain 119297037 Active 2023 OLEGARIO LEON MD Attn: Moy toro,[address] [facility], [place], [address], [place] - [facility] 4 10:45:00 Acute sinusitis 10234087 Active Tracy Almeida MA null, [place] - [facility] 1 09:51:24 Ganglion cyst 276778775 Active Tracy Almeida MA null, [place] - [facility] 1 09:51:24 Problem Notes None recorded. Procedures Surgical History Date Name Laterality Status Provider Name and Address Organization Details Recorded Time 12/19/19 colonoscopy completed [facility] Latif [facility] 08/18/2024 09:24:33 11/30/19 Date of Last Mammogram completed [facility] Latif - [facility] 08/18/2024 09:22:48 12/15/20 22 Date of Last Pap Smear completed Claudette Sofia MA [facility] 08/04/2024 15:45:09 12/13/19 18 colonoscopy completed Mary Lemus MA [facility] 11/12/2018 11:50:21 01/01/20 15 IUD Removal completed Armando Almeida MD Attn: Accounting,[address] [facility], [place], [address], [facility] 12/31/2014 12:24:51 10/28/18 90 Tubal Ligation completed Karli Stallings [facility] 11/19/2014 10:30:59 repair of shoulder completed Mary Lemus MA [facility] 11/12/2018 11:50:35 wrist repair completed Mary Lemus MA [facility] 11/12/2018 11:50:41 Imaging Results None recorded. [...] tablet every 72 hours by oral route. 03/17 /2021 completed Not Available Not Available Not Available [...] Updated DateTime 4 170.18 cm 27.6 kg/m2 83628.3 1 g 82 /min 99 % 99 % 98.3 [degF] 12 /min 119 mm[Hg] 77 mm[Hg] Claudette Sofia MA [place] - [facility] 4 15:35:07 Date Recorded Body height Body mass index (BMI) Body weight Oxygen saturation Oxygen saturation in Arterial blood by Pulse oximetry Heart rate Body temperature Systolic blood pressure Diastolic blood pressure Provider Name and Address Organization Details Last Updated DateTime 4 170.18 cm 28.6 kg/m2 50200.6 1 g 98 % 98 % 75 /min 98.1 [degF] 128 mm[Hg] 78 mm[Hg] [place] - [facility] 4 09:19:28 Social History Question Answer Notes LastModified by Organizat ion Details LastModified Time Tobacco Smoking Status Current Every Day Smoker quit 10/01/21 but started again Claudettedaly Doe MA null, [place] - [facility] 10/11/2022 14:02:13 What Is Your Level Of [...] 11/12/2018 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 [id number] Information not available 10/31/2021 Do You Use [...] Not available 06/28 14:44:38 Brother Diabetes mellitus [email or web address] Not available 08/04 15:56:30 Brother Diabetes mellitus [...] Disorder N Colon Polyps N Heart Attack (TN) N Diabetes N Cardiomyopathy N Blood Transfusions [...] Diagnosis/Indication Diagnosis SNOMED-CT Code Diagnosis ICD10 Code [id number] OLEGARIO LEON MD [facility] ([facility]) [address] [place] [address] 08/04/2024 14:56:28 08/18/2024 15:05:12 Tobacco user 032991258 Z72.0 Screening for malignant neoplasm of breast 157165197 Z12.31 Adult heal th examination 563264512 Z00.01 Chronic low back pain 27 7435994 M54.50 Screening for malignant neoplasm of respiratory tract 133240044 Z12.2 F17.210 Overweight 735694721 E66 .3 Diabetes m ellitus screening 221258665 Z13.1 Health Concerns Section Related Observation LastModified by Organization Detai ls LastModified Time None Recorded Concern Status LastModified by Organization Details LastModified Time None Recorded Payers Encounter Date Sequence Insurance Name Policy Number Policy Carver Covered Member ID Carver Member ID Guarantor Name 08/04/2024 2 [email or web address] [id number] Charlie Alberto [id number] Chelsea Hutchison idge 08/04/2024 1 [employer] [place] (PP[place]) [id number] Chelsea Hutchison idge [id number] Chelsea Hutchison idge Notes Date Note Type Note Provider Name and Address Organization Details Recorded Time 08/04/2024 text/html Annual wellness- Transferring from [facility] Loving Concerns today- Would like to quit smoking. In past, has tried going cold turkey, which lasted for about 6 months. [place] crazy when tried Chantix. 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 Cardiovascular risk- HTN: FHx in mother.- DM2: FHx in 2 brothers, paternal grandparents- HLD: FHx in mother- Personal history of TN, CVA? No- Family history of TN, CVA? FHx of TN in both grandmother, paternal aunt Infection risk- [...] 12/2022 -- emphysema and multiple lung nodules. OLEGARIO LEON MD Attn: Accounting,[address] , [place], [address], [facility] 08/18/2024 10:46:12 08/18/2024 text/html Joint pain- Low [...] recent labs: lipid panel, CBC, CMP, A1c OLEGARIO LEON MD Attn: Accounting,[address], [place], [address], [facility] 08/18/2024 10:56:52 OBGyn Episode No OBEpisode recorded.
--- OUTSIDE RECORDS SUMMARY | 2024-10-25 08:00 | XMS_ITS | Encounter Summary ---
Author Organization [facility] Address [address] [place] [address] Care Team Providers Care Technical Research Scientist Name Role Phone Johnny Mcgill Primary Care Provider Encounter Details Date Type Department Care Team (Late st Contact Info) Description 12/13/2017 9:52 AM MANAGEMENT SME Anesthesia Event [facility] [address] [place] [address] Cayden Godoy MD [address] [place] [address] Anesthesia Record Procedure Summary Procedure Name Responsible Anesthesiologist Anesthesia Start Time Anesthesia Stop Time COLON REMOVAL HOT BIOPSY (Colon) Cayden Godoy MD 12/13/17 0952 12/13/17 1011 Events Date Time Event Comment 12/13/2017 0943 0948 In Room 0950 An Start Data 0950 Start Supplemental O2 0952 An Start 0953 Patient Positioned Laterally 0954 An Induction The patient was reevaluated immediately before moderate or deep sedation use and before anesthesia induction. 0954 Proc Start 0955 Anesthesia Ready 1011 an stop data 1011 Handoff to RN I completed my handoff to the receiving nurse during which we: 1. Patient identified 2. Responsible provider identified 3. Pertinent medical history reviewed 4. Procedure type and surgical course discussed 5. Intraoperative anesthetic management and any significant issues discussed 6. Expectations and concerns for postop period discussed 7. Questions solicited from receiving nurse 8. Patient disposition at the time of handoff: PACU 1011 An Stop 1012 Proc Fin 1019 Out of Room 1025 Release from care Meds Name Total lidocaine (cardiac) syringe 2 % 100 mg propofol 300 mg sodium chloride 0.9% infusion 300 mL * Agents Name O2 * Blood No blood administrations on file. Lines, Drains, and Airways Type Details Placement Removal Peripheral IV Placement Date: 11/28 04/14; Placement Time: 0940; Catheter Size: 22 G; Orientation: Right; Location: Hand; Site Prep: Chlorhexidine; Inserted by: clementine Nguyễn; Insertion Attempts: 1; Patient Tolerance: Tolerated well; Removal Date: 12/13/17; Removal Time: 1100 12/13/17 0940 by Haritha Nguyễn RN 12/13/17 1100 by Haritha Nguyễn, RN documented in this encounter Social History Tobacco Use Types Packs/Day Years Used Date Smoking Tobacco: Every Day Cigarettes 1 25 Smokeless Tobacco: Never Alcohol Use Standard Drinks/Week Comments No 0 (1 standard drink = 0.6 oz pur e alcohol) Comments No Sex and Gender Information Value Date Recorded Sex Assigned at Not on file Legal Sex Female 11:50 PM MANAGEMENT SME Gender Identity Not on file Sexual Orientation Not on file documented as of this encounter OR Notes * Anesthesia Postprocedure Evaluation - Cayden Godoy MD - 12/13/2017 10:25 AM CST Patient: Chelsea ALBERTO Procedure Summary Date: 12/13/17 Room / Location: [facility]OM 2 / [facility] Anesthesia Start: 951 Anesthesia Stop: 1010 Procedure: COLON REMOVAL HOT BIOPSY (N/A Colon) Diagnosis: (COLONOSCOPY HX OF POLYPS Z86.010) Provider: Scooby Saez MD Responsible Provider: Cayden Godoy MD Anesthesia Type: general/TIVA ASA Status: 2 Anesthesia Type: general/TIVA Last vitals BP 96/66 (12/13/17 1011) Temp Pulse 77 (12/13/17 1011) Resp 19 (12/13/17 1011) SpO2 100 % (12/13/17 1011) Anesthesia Post Evaluation Patient location during evaluation: PACU Patient participation: complete - patient participated Level of consciousness: fully awake Pain management: adequate Airway patency: adequate Evidence of recall: no Anesthetic complications: no Cardiovascular status: acceptable Respiratory status: acceptable Hydration status: acceptable Pt is: normothermic Nausea/Vomiting status: none GEMENT SME * Anesthesia Preprocedure Evaluation - Cayden Godoy MD - 12/13/2017 8:58 AM CST Anesthesia Evaluation Chelsea ALBERTO is a 52 y.o. female HISTORY Past Medical History Information obtained from: patient and chart. Neurological Neuro/Psych system: negative Cardiovascular Cardiac system: negative Respiratory Comments: smoker Hepatic / Heme Hepatic/Heme system: negative Gastrointestinal GI system: negative Renal / Renal/ system: negative Endocrine / Other Endocrine/Other system: negative There is no problem list on file for this patient. Past Medical History: Diagnosis Date ??? Colon polyp ??? Fibrocystic breast ??? Smoking Past Surgical History: Procedure Laterality Date ??? COLONOSCOPY 11/2015 ??? ECTOPIC SURGERY 1989 tubal ??? TUBAL LIGATION 1990 OB History Para Term AB Living 3 SAB TAB Ectopic Multiple Live Births No Known Allergies HOME MEDICATIONS : zolpidem (AMBIEN) 5 mg tablet Current Facility-Administered Medications: ??? ondansetron (ZOFRAN) injection 4 mg, 4 mg, intravenous, Q30 Min PRN ??? sodium chloride 0.9% flush 0.5-20 mL, 0.5-20 mL, intra-catheter, PRN ??? sodium chloride 0.9% infusion, 30 mL/hr, intravenous, Continuous, Last Rate: 30 mL/hr at 12/13/17 0940, 30 mL/hr at 12/13/17 0940 ??? sodium chloride 0.9% infusion, 125 mL/hr, intravenous, Continuous Social History Smoking Status ??? Current Every Day Smoker ??? Packs/day: 1.00 ??? Years: 25.00 Smokeless Tobacco ??? Never Used Alcohol Use No Drug Use No Family History Problem Relation Age of Onset ??? Other Other Family history of Cancer, cervical; ??? Diabetes Other Family history of Diabetes mellitus; PAT Physical Exam Vitals: 12/13/17 0858 BP: 119/76 Pulse: 75 Resp: 16 Temp: 36 ??C (96.8 ??F) SpO2: 100% PT: No results found for requested labs within last 720 hours. INR: No results found for requested labs within last 720 hours. APTT: No results found for requested labs within last 720 hours. Hgb A1C: No results found for requested labs within last 720 hours. CBC RBC: No results found for requested labs within last 720 hours. RDW: No results found for requested labs within last 720 hours. MCHC: No results found for requested labs within last 720 hours. MCH: No results found for requested labs within last 720 hours. MCV: No results found for requested labs within last 720 hours. Hct: No results found for requested labs within last 720 hours. Hgb: No results found for requested labs within last 720 hours. WBC: No results found for requested labs within last 720 hours. MPV: No results found for requested labs within last 720 hours. Platelets: No results found for requested labs within last 720 hours. RDW CV: No results found for requested labs within last 720 hours. RDW Sd: No results found for requested labs within last 720 hours. BMP Glucose: No results found for requested labs within last 720 hours. Calcium: No results found for requested labs within last 720 hours. Sodium: No results found for requested labs within last 720 hours. Potassium: No results found for requested labs within last 720 hours. CO2: No results found for requested labs within last 720 hours. Chloride: No results found for requested labs within last 720 hours. BUN: No results found for requested labs within last 720 hours. Creatinine: No results found for requested labs within last 720 hours. STOP-Bang Total Score: 2 DOS Physical Exam Medical history, medications, and allergies reviewed. Attestation: I endorse the findings of the anesthesia pre-evaluation assessment dated: 12/13/2017. Airway Exam: Mallampati: I Cervical ROM: FROM TM distance: >4 Jaw ROM: full Cardiovascular Exam: Rate: regular Rhythm: regular Pulmonary Exam: LCTA, bilat Dental Exam: Missing Current state: Patients current state is cooperative and interactive. Anesthesia Plan ASA 2 Planned anesthesia: General/TIVA Induction: Induction: intravenous. Postoperative Plan: No plan for postoperative opioid use. No postoperative mechanical ventilation intended. Patient's planned disposition post procedure is Outpatient. Informed Consent: Discussed plan with attending and POWER WASHER. Anesthesia plan and risks discussed with patient. Consent and Attending signature: I and/or my designee have discussed the anesthesia plan, benefits, possible alternatives, parental presence at time of induction (if indicated), and clinically relevant risks that may include dental injury, unintentional awareness, and/or other complications. The patient and/or parent/legal guardian understand, and agree to proceed. All questions answered. GEMENT SME documented in this encounter Plan of Treatment Not on file documented as of this encounter Visit Diagnoses Not on filedocumented in this encounter Administered Medications Inactive Administered Medications - up to 3 most recent administrations Medication Order MAR Action Action Date Dose Rate Site lidocaine (cardiac) (XYLOCAINE) preservative free injection intravenous, As needed, Starting on Sat12/13/17 at 0954, Anesthesia Intra-op, Indications: Ventricular ArrhythmiasIndications:Ventricula r Arrhythmias Given 12/13/2017 9:54 AM MANAGEMENT SME 100 mg propofol (DIPRIVAN) IV intravenous, As needed, Starting on Sat12/13/17 at 0954, Anesthesia Intra-op Given 12/13/2017 10:07 AM MANAGEMENT SME 30 mg Given 12/13/2017 10:04 AM MANAGEMENT SME 30 mg Given 12/13/2017 10:01 AM MANAGEMENT SME 40 mg sodium chloride 0.9% infusion 125 mL/hr, intravenous, Continuous, Starting on Sat12/13/17 at 0945, Recovery (GI) New Bag 12/13/2017 9:52 AM MANAGEMENT SME documented in this encounter Care Teams Technical Research Scientist Relationship Specialty Start Date End Date Johnny Mcgill PA [address] [place] [address] PCP - General 11/04/17 06/14/21 documented as of this encounter
--- OUTSIDE RECORDS SUMMARY | 2024-10-25 08:00 | XMS_ITS | Encounter Summary ---
Author Organization [facility] Healthcare Address [address] [place] [address] Care Team Providers Care Liberal Arts Dean Name Role Phone Michael Otoole MD Unavailable [phone] Audelia Kim MD Unavailable [phone] Johnny Mcgill Primary Care Provider [phone] Reason for Visit * Reason Comments Arm Pain Encounter Details Date Type Department Care Team (Late st Contact Info) Description 03/28/2023 4:38 PM CDT - 03/28/2023 6:33 PM CDT Emergency [facility] Emergency Department [address] [place] [address] De Quervain's tenosynovitis, right (Primary Dx) Discharge Disposition: Discharge to home or self care Social History Tobacco Use Types Packs/Day Years Used Date Smoking Tobacco: Every Day Cigarettes 1 40 Started: 1984 Smokeless Tobacco: Never Alcohol Use Standard Drinks/Week Comments No 0 (1 standard drink = 0.6 oz pur e alcohol) AUDIT-C Answer Date Recorded Q1: How often do you have a drink containing alc ohol? Monthly or less 07/12/2021 Q2: How many drinks containi ng alcohol do you have on a typical day when you are drinking? 1 or 2 07/12/2021 Q3: How often do you have si x or more drinks on one occasion? Never 07/12/2021 Personal Safety Answer Date Recorded Have you ever been in or are you currently in a harmful physical or emotional relationship or is someone making you feel afraid or unsafe? 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 Gender Identity Not on file Sexual Orientation Not on file documented as of this encounter Last Filed Vital Signs Vital Sign Reading Time Taken Comments Blood Pressure 127/56 03/28/2023 4:35 PM CDT Pulse 105 03/28/2023 4:35 PM CDT Temperature 36.6 ??C (97.9 ??F) 03/28/2023 4:35 PM CD T Respiratory Rate 18 03/28/2023 4:35 PM CDT Oxygen Saturation 98% 03/28/2023 4:35 PM CDT Inhaled Oxygen Concentration - - Weight 81.6 kg (180 lb) 03/28/2023 4:35 PM CDT Height 170.2 cm (5' 7 ) 03/28/2023 4:35 PM CDT Body Mass Index 28.19 03/28/2023 4:35 PM CDT documented in this encounter Discharge Instructions * Attachments The following attachments cannot be sent through Care Everywhere. * De Quervain Tenosynovitis (Polish) documented in this encounter Medications at Time of Discharge methylPREDNISolo ne (MEDROL DOSEPACK) 4 mg Dosepack Take as directed on package. Collaborating physician Charlie Giron MD 1 packet 03/28/2023 3 acetaminophen (TYLENOL) 500 mg tablet Take 1,000 mg by mouth every 6 (six) hours as needed for pain 3 traMADol-acetami nophen (ULTRACET) 37.5-325 mg per tablet Take 1 tablet by mouth every 8 (eight) hours as needed for pain P.r.n. pain not relieved by Medrol Dosepak. Collaborating physician Charlie Giron MD 15 tablet 03/28/2023 3 documented as of this encounter Ordered Prescriptions Prescription Sig Dispense Quantity Refills Last Filled Start Date End Date methylPREDNISolon e (MEDROL DOSEPACK) 4 mg Dosepack Take as directed on package. Collaborating physician Charlie Giron MD 1 packet 03/28/2023 04/03/20 23 traMADol-acetamin ophen (ULTRACET) 37.5-325 mg per tablet Take 1 tablet by mouth every 8 (eight) hours as needed for pain P.r.n. pain not relieved by Medrol Dosepak. Collaborating physician Charlie Giron MD 15 tablet 03/28/2023 04/24/20 23 documented in this encounter Discharge Disposition Disposition Code Departure Means Destination Comment s Discharge to home or self care documented in this encounter ED Notes * Edgar García PA - 03/28/2023 4:57 PM CDT HPI Chief Complaint Patient presents with Arm Pain 57-year-old female with history of everyday smoker presents with chief complaint of pain along the radial aspect of the right wrist. Patient states it started shortly after she had an IV placed in her right wrist region. Complains of a constant at times severe burning sensation aggravated by movement. States the wrist occasionally pops. Alleviated by position and rest. Pain radiates up the forearm at times. Taking omlh-sjo-xmhoitk pain medication with some relief. Patient History: Patient Active Problem List Diagnosis Date Noted De Quervain's tenosynovitis, right 03/28/2023 Family history of colon cancer 11/22/2020 Personal history of colonic polyps 11/22/2020 Encounter for screening colonoscopy 11/22/2020 Past Medical History: Diagnosis Date Colon polyp Fibrocystic breast Smoking Past Surgical History: Procedure Laterality Date COLONOSCOPY 11/2015 COLONOSCOPY 12/13/2017 ECTOPIC SURGERY 1989 tubal TUBAL LIGATION 1990 Family History Problem Relation Age of Onset Other Other Family history of Cancer, cervical; Diabetes Other Family history of Diabetes mellitus; Anesthesia problems Neg Hx Social History Tobacco Use Smoking status: Every Day Packs/day: 1.00 Years: 35.00 Pack years: 35.00 Types: Cigarettes Start date: 1984 Smokeless tobacco: Never Vaping Use Vaping Use: Never used Substance and Sexual Activity Alcohol use: No Drug use: No Sexual activity: Defer Social History Social History Narrative Not on file Review of Systems Review of Systems All other systems reviewed negative. All available allergies, past medical history, past surgical history, social history, and medications reviewed from the medical record, nursing notes, and with patient Physical Exam ED Triage Vitals [03/28/23 1635] Temp Pulse Resp BP SpO2 36.6 ??C (97.9 ??F) 105 18 127/56 98 % Temp src Heart Rate Source Patient Position BP Location FiO2 (%) Temporal -- -- -- -- Height Height Method Weight Weight Method 1.702 m (5' 7 ) Stated 81.6 kg (180 lb) Stated Physical Exam Vitals and nursing note reviewed. Constitutional: Appearance: Normal appearance. HENT: Head: Normocephalic. Right Ear: External ear normal. Left Ear: External ear normal. Mouth/Throat: Mouth: Mucous membranes are moist. Pharynx: Oropharynx is clear. Cardiovascular: Rate and Rhythm: Normal rate and regular rhythm. Pulses: Normal pulses. Heart sounds: Normal heart sounds. Pulmonary: Effort: Pulmonary effort is normal. Breath sounds: Normal breath sounds. Musculoskeletal: Cervical back: Normal range of motion. Comments: Right wrist exam - full active range of motion throughout. Tenderness along the radial aspect. Positive Shashank test. Negative for swelling or deformity. Intact radial pulse. Skin: General: Skin is warm and dry. Neurological: General: No focal deficit present. Mental Status: She is alert and oriented to person, place, and time. Psychiatric: Mood and Affect: Mood normal. Behavior: Behavior normal. Thought Content: Thought content normal. Judgment: Judgment normal. Voice recognition software [employer] Direct was used to dictate and transcribe this document. Theatrical Agent variances may occur. Despite proofreading, typographical errors may occur. MDM Medical Decision Making Differential diagnosis of what could be causing patient's injury/pain (things considered in medicaldecision making from history, physical exam, testing, and treatment): Fracture, sprain, strain, dislocation, tendinitis, bursitis, soft tissue contusion In consideration of the above differential diagnosis, the following orders were placed while the patient was in the Emergency Department. Orders Placed This Encounter: X-ray right wrist See ED course for pertinent results and imaging interpretation. The patient received the following medications: Deferred at this time Amount and/or Complexity of Data Reviewed Radiology: ordered. Risk Prescription drug management. Risk Details: Discharge plan: Prescriptions for Ultracet and Medrol Dosepak sent to patient's preferred pharmacy. Patient placed in a wrist splint. Given contact information to get established with an orthopedic provider. Return if worse. ED Course as of 03/28/23 1826 Time: 03/28 1807 Comment: Right wrist x-ray: IMPRESSION: No acute osseous abnormality. By: Edgar García PA Time: 03/28 1807 Comment: Rechecked the patient- The patient is resting comfortably and appears in no acute distress. I discussed the results of the diagnostic studies / labs, my clinical impression, and the plan forfurther treatment with the patient. The patient agrees with the plan and discharge at this time, all questions addressed. The patient is medically stable for discharge at this time. I have given the patient instructions regarding their diagnosis, expectations, follow up, and return precautions. I explained to the patient that emergent conditions may arise and to return to the ERfor new, worsening, or any persistent conditions. I've explained the importance of following up with his/her Primary Care Physician- (or the referral physician listed) as instructed. The patient verbalized understanding of the discharge instructions Evaluation of the splint applied reveals excellent placement and proper immobilization. Exposed digits reveal good color. Sensation is intact. By: Edgar García PA Final diagnoses: De Quervain's tenosynovitis, right Edgar García PA 03/28/231825 Cosigned by Kalyani Malcolm MD at 03/28/2023 10:49 PM CDT * Zena Berkowitz RN - 03/28/2023 4:34 PM CDT Pt to triage for c/o right arm pain. Pt reports in November she had an IV placed in her right forearm and it has been painful since. documented in this encounter Plan of Treatment Not on file documented as of this encounter Procedures Procedure Name Priority Date/Time Associated Diagnosis Comments XR WRIST RIGHT 3 OR MORE VIEWS ED 03/28/2023 5:11 PM CDT documented in this encounter Results * XR Wrist Right 3 or More Views (03/28/2023 5:11 PM CDT) Anatomical Region Laterality Modality Upper Extremities, Wrist Right Compute d Radiography 03/28/2023 5:52 PM CDT Narrative 03/28/2023 5:53 PM CDT EXAM DESCRIPTION: XR WRIST RIGHT 3 OR MORE VIEWS REASON FOR STUDY: Pain along the radial aspect since November 2022 ?? Pt reports in November 2022 she had an IV placed in her right forearm and it has been painful since. ?? Pain along radial aspect. ??No Hx of right wrist fxs or surgery. ?? TECHNIQUE: 3 ??radiographic view(s) of the ??right wrist . COMPARISON: None FINDINGS: Normal bony alignment. ??No acute fracture seen. ??Mild radiocarpal joint osteoarthritis. ??No gross soft tissue abnormality. IMPRESSION: No acute osseous abnormality. THIS IS AN ELECTRONICALLY VERIFIED FINAL REPORT 03/28/2023 5:53 PM - Electronically signed by ??Carlitos Martinez M.D. AG: AG D: ??03/28/2023 5:53 PM T: ??03/28/2023 5:53 PM Report ID: [id number] Reading Location: ??[id number] Procedure Note Carlitos Martinez MD - 03/28/2023 EXAM DESCRIPTION: XR WRIST RIGHT 3 OR MORE VIEWS REASON FOR STUDY: Pain along the radial aspect since November 2022 Pt reports in November 2022 she had an IV placed in her right forearm andit has been painful since. Pain along radial aspect. No Hx of right wristfxs or surgery. TECHNIQUE: 3 radiographic view(s) of the right wrist . COMPARISON: None FINDINGS: Normal bony alignment. No acute fracture seen. Mild radiocarpal joint osteoarthritis. No gross soft tissue abnormality. IMPRESSION: No acute osseous abnormality. THIS IS AN ELECTRONICALLY VERIFIED FINAL REPORT 03/28/2023 5:53 PM - Electronically signed by Carlitos Martinez M.D. AG: NGA Report ID: [id number] Reading Location: [id number] Edgar DAI IMG XR PROCEDURES Final Resu lt documented in this encounter Visit Diagnoses Diagnosis De Quervain's tenosynovitis, right- Primary De Quervain's tenosynovitis, right documented in this encounter Orders Nursing Count Last Ordered Date First Orde red Date APPLY SPLINT (SPECIFY) 1 03/28/2023 documented in this encounter Care Teams Liberal Arts Dean Relationship Specialty Start Date End Date Audelia Kim MD [address] [place] [address] PCP - wildlife officer Obstetrics and Gynecology 11/30/22 Johnny Mcgill PA [address] [place] [address] PCP - General Family Practice 11/30/22 Michael Otoole MD Referring Physician Otolaryngology 06/15/21 documented as of this encounter
--- OUTSIDE RECORDS SUMMARY | 2024-10-25 08:00 | XMS_ITS | Encounter Summary ---
Author Organization [facility] Address [address] [place] [address] Care Team Providers Care Model Maker Firearms Name Role Phone Michael Otoole MD Unavailable [phone] Audelia Kim MD Unavailable [phone] Johnny Mcgill Primary Care Provider [phone] Reason for Referral * MRI/CAT/PET Scan (Routine) - Closed Specialty Diagnoses / Procedures Referred By Regineac t Referred To Contact Radiology Diagnoses Other nonspecific abnormal finding of lung field Procedures CT Chest WO Contrast F/U Lung Screen Protocol Audelia Kim MD [address] [place] [address] Phone: tel: fax: [address] [address] Referral ID Status Reason Start Date Expiration Date Visits Re quested Visits Authorized [id number] Closed 03/07/2023 06/07/2023 1 1 Reason for Visit * MRI/CAT/PET Scan (Routine) - Closed Specialty Diagnoses / Procedures Referred By Panfilo t Referred To Contact Radiology Diagnoses Other nonspecific abnormal finding of lung field Procedures CT Chest WO Contrast F/U Lung Screen Protocol Audelia Kim MD [address] [place] [address] Phone: tel: fax: [address] [phone] Referral ID Status Reason Start Date Expiration Date Visits Re quested Visits Authorized [id number] Closed 03/07/2023 06/07/2023 1 1 Encounter Details Date Type Department Care Team (Latest Contact Info) Description 03/28/2023 3:57 PM CDT - 03/28/2023 11:59 PM CDT Hospital Encounter [facility] [address] [place] [address] Other nonspecific abnormal finding of lung field Discharge Disposition: Discharge to home or self [...] on file 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 Gender Identity Not on file Sexual Orientation Not on file documented as of this encounter Last Filed Vital Signs Vital Sign Reading Time Taken Comments Blood Pressure - - Pulse - - Temperature - - Respiratory Rate - - Oxygen Saturation - - Inhaled Oxygen Concentration - - Weight 82.1 kg (181 lb) 03/28/2023 4:33 PM CDT Height 170.2 cm (5' 7 ) 03/28/2023 4:33 PM CDT Body Mass Index 28.35 03/28/2023 4:33 PM CDT documented in this encounter Medications at Time [...] 03/28/2023 3 documented as of this encounter Discharge Disposition Disposition Code Departure Means Destination Discharge to home or self care documented in this encounter Plan of Treatment Not on file documented as of this encounter Procedures Procedure Name Priority Date/Time Associated Diagnosis Comments CT CHEST WO CONTRAST F/U LUNG SCREEN PROTOCOL Schedule Routine, Read Routine (OP Routine) 03/28/2023 4:32 PM CDT Other nonspecific abnormal finding of lung field documented in this encounter Results * CT Chest WO Contrast F/U Lung Screen Protocol (03/28/2023 4:32 PM CDT) Anatomical Region Laterality Modality Chest N/A Computed Tomogra phy 03/29/2023 9:33 AM CDT Narrative 03/29/2023 10:29 AM CDT EXAM DESCRIPTION: ?? CT CHEST WO CONTRAST F/U LUNG SCREEN PROTOCOL REASON FOR STUDY: Screening CT of the chest in a ?? current ??smoker with a ??35 ?? pack year smoking history. Additional history: None. TECHNIQUE: Low dose CT scan of the chest was performed without intravenous contrast using helical scanning technique. The exam extends from the lung apices through the lung bases. Automatic exposure control was used as a dose optimization technique. NOTE: This study was performed for the specific purposes of lung cancer screening and is not an alternative to diagnostic chest CT. RADIATION DOSE: CT dose index volume (CTDIvol) = ?? 1.94 ??mGy COMPARISON: ?? 12/31/2022 FINDINGS: SMOKING RELATED LUNG DISEASE: ?? Qcst-zx-xwlzbgyc centrilobular and paraseptal emphysema. LUNG NODULES: ?? Stable right lower lobe nodule measuring 1.0 x 0.4 cm (series 3, image 138). ?? Of note, this nodule appears to be along a superior accessory fissure in the right lower lobe, and appears triangular in shape, favoring an intrapulmonary lymph node. ??This is best appreciated on sagittal image 128. Stable right upper lobe 5 mm solid nodule (70). Stable inferior right upper lobe 5 mm nodule abutting the minor fissure (147). Stable right lower lobe 6 mm nodule (179). Stable linear and triangular nodules along the left major fissure measuring up to 5 mm (104). Stable left upper lobe 5 mm nodule (154). Stable posterior left lower lobe 5 mm nodule (191). CORONARY ARTERY CALCIFICATION: ??Minimal coronary artery calcifications. OTHER: ?? No focal consolidation, pneumothorax, or pleural effusion. ??The central airways are clear. ??No mediastinal mass. ??Stable mediastinal lymph nodes measuring up to 9 mm in short axis. ??No thoracic lymphadenopathy. ??The heart is normal in size. ??No pericardial effusion. ??Atherosclerotic calcifications of the thoracic aorta. ??No thoracic aortic aneurysm. ??No acute fractures or suspicious osseous lesions. ??Hepatic steatosis. ??Stable 1.8 cm simple fluid attenuating cyst in the anterior left hepatic lobe. ??The visualized upper abdomen is otherwise normal. IMPRESSION: ??Stable bilateral solid lung nodules measuring up to 1 cm. ??Of note, the 1 cm nodule ??is along a superior accessory fissure in the right lower lobe, strongly favoring an intrapulmonary lymph node. ??No new lung nodules are identified. Lung-RADS category ??2: Benign appearance or behavior. Recommendation: ??Low dose Screening CT of chest in 12 months. THIS IS AN ELECTRONICALLY VERIFIED FINAL REPORT 03/29/2023 10:29 AM - Electronically signed by ??Raúl Monique M.D. KR: KR D: ??03/29/2023 10:29 AM T: ??03/29/2023 10:29 AM Report ID: [id number] Reading Location: ??[id number] Procedure Note Raúl Monique MD - 03/29/2023 EXAM DESCRIPTION: CT CHEST WO CONTRAST F/U LUNG SCREEN PROTOCOL REASON FOR STUDY: Screening CT of the chest in a current smoker with a35 pack year smoking history. Additional history: None. TECHNIQUE: Low dose CT scan of the chest was performed without intravenous contrast using helical scanning technique. The exam extends from the lung apices through the lung bases. Automatic exposure control was used as adose optimization technique. NOTE: This study was performed for the specific purposes of lung cancer screening and is not an alternative to diagnostic chest CT. RADIATION DOSE: CT dose index volume (CTDIvol) = 1.94 mGy COMPARISON: 12/31/2022 FINDINGS: SMOKING RELATED LUNG DISEASE: Adji-oy-zjxgmdsl centrilobular andparaseptal emphysema. LUNG NODULES: Stable right lower lobe nodule measuring 1.0 x 0.4 cm (series 3, [id number]). Of note, this nodule appears to be along a superior accessory fissure inthe right lower lobe, and appears triangular in shape, favoring anintrapulmonary lymph node. This is best appreciated on sagittal image 128. Stable right upper lobe 5 mm solid nodule (70). Stable inferior right upper lobe 5 mm nodule abutting the minor fissure(147). Stable right lower lobe 6 mm nodule (179). Stable linear and triangular nodules along the left major fissuremeasuring up to 5 mm (104). Stable left upper lobe 5 mm nodule (154). Stable posterior left lower lobe 5 mm nodule (191). CORONARY ARTERY CALCIFICATION: Minimal coronary artery calcifications. OTHER: No focal consolidation, pneumothorax, or pleural effusion. The central airways are clear. No mediastinal mass. Stable mediastinal lymph nodes measuring up to 9 mm in short axis. No thoracic lymphadenopathy.The heart is normal in size. No pericardial effusion. Atherosclerotic calcifications of the thoracic aorta. No thoracic aortic aneurysm. Noacute fractures or suspicious osseous lesions. Hepatic steatosis. Stable 1.8cm simple fluid attenuating cyst in the anterior left hepatic lobe. The visualized upper abdomen is otherwise normal. IMPRESSION: Stable bilateral solid lung nodules measuring up to 1 cm. Of note, the1 cm nodule is along a superior accessory fissure in the right lower lobe, strongly favoring an intrapulmonary lymph node. No new lung nodules are identified. Lung-RADS category 2: Benign appearance or behavior. Recommendation: Low dose Screening CT of chest in 12 months. THIS IS AN ELECTRONICALLY VERIFIED FINAL REPORT 03/29/2023 10:29 AM - Electronically signed by Raúl Monique M.D. KR: NICOLETTE Report ID: [id number] Reading Location: [place] [address] Audelia Kim MD IMG CT PROCEDURES Final Resul t documented in this encounter Visit Diagnoses Diagnosis Other nonspecific abnormal finding of lung field documented in this encounter Care Teams Model Maker Firearms Relationship Specialty Start Date End Date Audelia Kim MD [address] [place] [address] PCP - online health and fitness coach Obstetrics and Gynecology 11/30/22 Johnny Mcgill PA [address] [place] [address] PCP - General Family Practice 11/30/22 Michael Otoole MD Referring Physician Otolaryngology 06/15/21 documented as of this encounter
--- OUTSIDE RECORDS SUMMARY | 2024-10-25 08:00 | XMS_ITS | Encounter Summary ---
Author Organization [facility] Healthcare Address [address] [place] [address] Care Team Providers Care Tool Maker Bench Name Role Phone Michael Otoole MD Unavailable [phone] Audelia Kim MD Unavailable [phone] Johnny Mcgill Primary Care Provider Encounter Details Date Type Department Care Team (Late st Contact Info) Description 12/28/2022 Telephone [facility] [address] [place] [address] Karli West RT Social History Tobacco Use Types Packs/Day [...] more drinks on one occasion? 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 Gender Identity Not on file Sexual Orientation Not on file documented as of this encounter Miscellaneous Notes * Telephone Encounter - Karli West RT - 12/28/2022 11:48 AM DOPE MAINTENANCE WORKER Conf appt MAINTENANCE WORKER documented in this encounter Plan of Treatment Not on file documented as of this encounter Visit Diagnoses Not on filedocumented in this encounter Care Teams Tool Maker Bench Relationship Specialty Start Date End Date Audelia Kim MD [address] [place] [address] PCP - nurse informatics educator Obstetrics and Gynecology 11/30/22 Johnny Mcgill PA [address] [place] [address] PCP - General Family Practice 11/30/22 Michael Otoole MD Referring Physician Otolaryngology 06/15/21 documented as of this encounter
--- OUTSIDE RECORDS SUMMARY | 2024-10-25 08:00 | XMS_ITS | Encounter Summary ---
Author Organization [facility] Address [address] [place] [address] Care Team Providers Care Dragline Operator Name Role Phone Michael Otoole MD Unavailable [phone] Johnny Mcgill Primary Care Provider [phone] Encounter Details Date Type Department Care Team (Late st Contact Info) Description 11/01/2022 Telephone [facility] Gastroenterology at [address] [place] [address] Vero Haley Social History Tobacco Use Types Packs/Day Years Used Date Smoking Tobacco: Former Cigarettes 0.5 25 1 985 - 1993 Smokeless Tobacco: Never Alcohol Use Standard Drinks/Week [...] on file Legal Sex Female 11:50 PM ACTUARY CLERK Gender Identity Not on file Sexual Orientation Not on file documented as of this encounter Miscellaneous Notes * Telephone Encounter - Vero Haley - 11/01/2022 2:55 PM CST Patient s scheduled for a colonoscopy with Dr. Saez on 12/19/22. Prep instructions mailed to patient. Last colonoscopy: 12/13/2017 Family history colon cancer (if yes, relationship to pt): Yes - Paternal Uncles Personal history colon polyps or colon cancer: Yes - Polyps Pt on blood thinner (if yes, list medication and reason for taking): No Has pt had recent stent placement within the last year: No Pt have pacemaker/defibrillator: No Pt diabetic (if yes, insulin or oral meds): No Pt have kidney disease or on dialysis: No Pt on iron: No Hx of Constipation: No Mechanical Heart valve: No COVID-19 test verbally given to pt: Not Needed Instructed pt to call with any medical changes and/or medications/insurance. ARY CLERK documented in this encounter Plan of Treatment Not on file documented as of this encounter Visit Diagnoses Diagnosis Personal history of colonic polyps- Primary Family history of colon cancer Family history of malignant neoplasm of gastrointestinal tract documented in this encounter Orders Case Request Count Last Ordered Date First Orde red Date CASE REQUEST GI 1 11/01/2022 documented in this encounter Care Teams Dragline Operator Relationship Specialty Start Date End Date Johnny Mcgill PA [address] [place] [address] PCP - General 07/31/21 11/29/22 Michael Otoole MD Referring Physician Otolaryngology 06/15/21 documented as of this encounter
--- OUTSIDE RECORDS SUMMARY | 2024-10-25 08:00 | XMS_ITS | Encounter Summary ---
Author Organization [facility] Address [address] [place] [address] Care Team Providers Care Preschool Assistant Principal Name Role Phone Michael Otoole MD Unavailable [phone] Audelia iKm MD Unavailable [phone] Johnny Mcgill Primary Care Provider [phone] Encounter Details Date Type Department Care Team (Late st Contact Info) Description 04/24/2023 Telephone [facility] Orthopedics and Sports Medicine [address] [place] [address] Alejandra Foster MD [address] [place] [address] Social History Tobacco Use Types Packs/Day Years Used Date Smoking Tobacco: Some Days Cigarettes 1 40 Started: 1984 Smokeless Tobacco: [...] on file Legal Sex Female 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 * Telephone Encounter - Audelia Ross - 04/24/2023 12:16 PM CDT [facility] called and they are received an order for PT for the right wrist/hand and they have looked over the order and are wanting to know if we can switch from PT to OT. If this can happen they can get her in a lot sooner. Please call [phone] or fax new order to [phone] documented in this encounter Plan of Treatment Not on file documented as of this encounter Visit Diagnoses Not on filedocumented in this encounter Care Teams Preschool Assistant Principal Relationship Specialty Start Date End Date Audelia Kim MD [address] [place] [address] PCP - loop machine operator Obstetrics and Gynecology 11/30/22 Johnny Mcgill PA [address] [place] [address] PCP - General Family Practice 11/30/22 Michael Otoole MD Referring Physician Otolaryngology 06/15/21 documented as of this encounter
--- OUTSIDE RECORDS SUMMARY | 2024-10-25 08:00 | XMS_ITS | Encounter Summary ---
Author Organization [facility] Address [address] [place] [address] Care Team Providers Care Psychologist Military Personnel Name Role Phone Michael Otoole MD Unavailable [phone] Audelia Kim MD Unavailable [phone] Johnny Mcgill Primary Care Provider [phone] Encounter Details Date Type Department Care Team (Late st Contact Info) Description 12/24/2022 Telephone [facility] [address] [place] [id number] Zina Rossi RN Social History Tobacco Use Types Packs/Day Years [...] on file Legal Sex Female 11:50 PM VISCOSITY WORKER Gender Identity Not on file Sexual Orientation Not on file documented as of this encounter Miscellaneous Notes * Telephone Encounter - Zina Rossi RN - 12/24/2022 10:56 AM VISCOSITY WORKER Reviewed history with patient. Patient is aware of date/time/location of [facility]. OSITY WORKER documented in this encounter Plan of Treatment Not on file documented as of this encounter Visit Diagnoses Not on filedocumented in this encounter Care Teams Psychologist Military Personnel Relationship Specialty Start Date End Date Audelia Kim MD [address] [place] [address] PCP - credit rating checker Obstetrics and Gynecology 11/30/22 Johnny Mcgill PA [address] [place] [address] PCP - General Family Practice 11/30/22 Michael Otoole MD Referring Physician Otolaryngology 06/15/21 documented as of this encounter
--- OUTSIDE RECORDS SUMMARY | 2024-10-25 08:00 | XMS_ITS | Encounter Summary ---
Author Organization [facility] Address [address] [place] [address] Care Team Providers Care Manager Floor Name Role Phone Michael Otoole MD Unavailable Audelia Kim MD Unavailable [phone] Johnny Mcgill Primary Care Provider [phone] Reason for Referral * MRI/CAT/PET Scan (Routine) - Closed Specialty Diagnoses / Procedures Referred By Contac t Referred To Contact Radiology Diagnoses Encounter for screening for malignant neoplasm of respiratory organs Nicotine dependence, cigarettes, uncomplicated Procedures CT Lung Cancer Screening Audelia Kim MD [address] [place] [address] Phone: tel: fax: [address] [phone] Referral ID Status Reason Start Date Expiration Date Visits Re quested Visits Authorized [id number] Closed 09/21/2024 12/21/2024 1 1 CTOR CASE MANAGEMENT Reason for Visit * MRI/CAT/PET Scan (Routine) - Closed Specialty Diagnoses / Procedures Referred By Panfilo ventura Referred To Contact Radiology Diagnoses Encounter for screening for malignant neoplasm of respiratory organs Nicotine dependence, cigarettes, uncomplicated Procedures CT Lung Cancer Screening Audelia Kim MD [address] [place] [address] Phone: tel: fax: [address] [phone] Referral ID Status Reason Start Date Expiration Date Visits Re quested Visits Authorized [id number] Closed 09/21/2024 12/21/2024 1 1 Encounter Details Date Type Department Care Team (Latest Contact Info) Description 10/05/2024 4:32 PM DIRECTOR CASE MANAGEMENT - 10/05/2024 11:59 PM DIRECTOR CASE MANAGEMENT Hospital Encounter [facility] [address] [place] [address] Encounter for screening for malignant neoplasm of respiratory organs; Nicotine dependence, cigarettes, uncomplicated Discharge Disposition: Discharge to home or self [...] on file Legal Sex Female 11:50 PM DIRECTOR CASE MANAGEMENT Gender Identity Not on file Sexual Orientation Not on file documented as of this encounter Last Filed Vital Signs Vital Sign Reading Time Taken Comments Blood Pressure - - Pulse - - Temperature - - Respiratory Rate - - Oxygen Saturation - - Inhaled Oxygen Concentration - - Weight 81.6 kg (180 lb) 10/05/2024 4:44 PM DIRECTOR CASE MANAGEMENT Height 167.6 cm (5' 6 ) 10/05/2024 4:44 PM DIRECTOR CASE MANAGEMENT Body Mass Index 29.05 10/05/2024 4:44 PM DIRECTOR CASE MANAGEMENT documented in this encounter Medications at Time of Discharge ibuprofen 200 mg tab/cap Take 1 tablet/capsul e (200 mg total) by mouth every 6 (six) hours as needed for pain documented as of this encounter Discharge Disposition Disposition Code Departure Means Destination Discharge to home or self care documented in this encounter Plan of Treatment Not on file documented as of this encounter Procedures Procedure Name Priority Date/Time Associated Diagnosis Comments CT LUNG CANCER SCREENING Schedule Routine, Read Routine (OP Routine) 10/05/2024 4:44 PM DIRECTOR CASE MANAGEMENT Encounter for screening for malignant neoplasm of respiratory organs Nicotine dependence, cigarettes, uncomplicated documented in this encounter Results * CT Lung Cancer Screening (10/05/2024 4:44 PM DIRECTOR CASE MANAGEMENT) Anatomical Region Laterality Modality Chest N/A Computed Tomogra phy 10/12/2024 9:00 AM DIRECTOR CASE MANAGEMENT Narrative 10/12/2024 9:14 AM DIRECTOR CASE MANAGEMENT EXAM DESCRIPTION: ?? CT LUNG CANCER SCREENING REASON FOR STUDY: Screening CT of the chest in a ?? current ??smoker with a ??36 ?? pack year smoking history. Additional history: [...] CT dose index volume (CTDIvol) = ?? 1.98 ??mGy COMPARISON: ?? CT chest 03/28/2023 FINDINGS: SMOKING RELATED LUNG DISEASE: ?? Mild emphysema. LUNG NODULES: ?? Stable 5 mm nodule in the right upper lobe (3/69), 5 mm perifissural nodule in the inferior right upper lobe (3/145), 6 mm right lower lobe nodule (3/180), 5 mm left upper lobe nodule (3/153) and 4 mm nodule in the right lower lobe (3/134) . ??1.0 x 0.4 cm perifissural nodule in the right lower lobe remains stable, likely lymph node. ??No new or enlarging pulmonary nodule. CORONARY ARTERY CALCIFICATION: ??Mild OTHER: ?No focal consolidation, pleural effusion or pneumothorax. Normal-sized heart without pericardial effusion. Normal caliber of the great vessels. Atherosclerotic calcification of the aorta and coronary arteries. No pleural effusion. No thoracic lymphadenopathy. Visualized upper abdomen demonstrates no acute findings. No suspicious osseous findings. ?? IMPRESSION: Stable bilateral pulmonary nodules. No new or enlarging pulmonary nodule. Lung-RADS category ??2: Benign appearance or behavior. Recommendation: ??Low dose Screening CT of chest in 12 months. THIS IS AN ELECTRONICALLY VERIFIED FINAL REPORT 10/12/2024 9:14 AM - Electronically signed by ??Etelvina Matias M.D. FT: FT D: ??10/12/2024 9:14 AM T: ??10/12/2024 9:14 AM Report ID: [id number] Reading Location: ??[id number] Procedure Note Etelvina Terrazas MD - 10/12/2024 EXAM DESCRIPTION: CT LUNG CANCER SCREENING REASON FOR STUDY: Screening CT of the chest in a current smoker with a36 pack year smoking history. Additional history: None. [...] DOSE: CT dose index volume (CTDIvol) = 1.98 mGy COMPARISON: CT chest 03/28/2023 FINDINGS: SMOKING RELATED LUNG DISEASE: Mild emphysema. LUNG NODULES: Stable 5 mm nodule in the right upper lobe (3/69), 5 mm perifissural nodule in the inferior right upper lobe (3/145), 6 mm rightlower lobe nodule (3/180), 5 mm left upper lobe nodule (3/153) and 4 mm nodulein the right lower lobe (3/134) . 1.0 x 0.4 cm perifissural nodule in theright lower lobe remains stable, likely lymph node. No new or enlargingpulmonary nodule. CORONARY ARTERY CALCIFICATION: Mild OTHER: No focal consolidation, pleural effusion or pneumothorax. Normal-sized heart without pericardial effusion. Normal caliber of thegreat vessels. Atherosclerotic calcification of the aorta and coronary arteries.No pleural effusion. No thoracic lymphadenopathy. Visualized upper abdomen demonstrates no acute findings. No suspicious osseous findings. IMPRESSION: Stable bilateral pulmonary nodules. No new or enlarging pulmonary nodule. Lung-RADS category 2: Benign appearance or behavior. Recommendation: Low dose Screening CT of chest in 12 months. THIS IS AN ELECTRONICALLY VERIFIED FINAL REPORT 10/12/2024 9:14 AM - Electronically signed by Etelvina Matias M.D. FT: FT Report ID: [id number] Reading Location: [place] [address] Audelia Kim MD IMG CT PROCEDURES Final Resul t documented in this encounter Visit Diagnoses Diagnosis Encounter for screening for malignant neoplasm of respiratory organs Nicotine dependence, cigarettes, uncomplicated documented in this encounter Care Teams Manager Floor Relationship Specialty Start Date End Date Audelia Kim MD [address] [place] [id number] PCP - data entry technician Obstetrics and Gynecology 11/30/22 Johnny Mcgill PA [address] [place] [address] PCP - General Family Practice 11/30/22 Michael Otoole MD Referring Physician Otolaryngology 06/15/21 documented as of this encounter
--- OUTSIDE RECORDS SUMMARY | 2024-10-25 08:00 | XMS_ITS | Clinical Summary ---
Author Organization [facility] Address [address] [place] [address] Care Team Providers Care Plant Engineering Supervisor Name Role Phone Michael Otoole MD Unavailable [phone] Audelia Kim MD Unavailable [phone] Johnny Mcgill Primary Care Provider [phone] Allergies No known active allergies Medications ibuprofen 200 mg tab/cap Take 1 tablet/caps ule (200 mg total) by mouth every 6 (six) hours as needed for pain Active Active Problems Problem Noted Date Diagnosed Date De Quervain's tenosynovitis, right 03/28/2023 Family history of colon cancer 11/22/2020 Overview (11/22/2020): Added automatically from request for surgery [id number] Personal history of colonic polyps 11/22/2020 Overview (11/22/2020): Added automatically from request for surgery [id number] Encounter for screening colonoscopy 11/22/2020 Overview (11/22/2020): Added automatically from request for surgery [id number] Encounters Date Type Department Care Team Description 10/05/2024 4:32 PM HEATING AND REFRIGERATION INSPECTOR - 10/05/2024 11:59 PM HEATING AND REFRIGERATION INSPECTOR Hospital Encounter [address] [address] Encounter for screening for malignant neoplasm of respiratory organs; Nicotine dependence, cigarettes, uncomplicated Discharge Disposition: Discharge to home or self care 10/02/2024 [address] [place] [address] Zina Rossi RN 08/06/2024 9:38 AM CDT - 08/06/2024 11:59 PM CDT Hospital Encounter [facility] [address] [place] [address] Lumbar pain Discharge Disposition: Discharge to home or self care from Last 3 Months Immunizations Name Administration Dates Next Due Influenza, Trivalent, Preservative Free, Intramu scular 08/10/2016 Surgical History Surgery Date Site/Laterality Comments ECTOPIC SURGERY 10/28/1989 - 10/27/1990 tubal TUBAL LIGATION 10/28/1990 - 10/27/1991 COLONOSCOPY 11/2015 COLONOSCOPY 12/13/2017 Medical History Medical History Date Comments Fibrocystic breast Smoking Colon polyp Family History Medical History Relation Name Comments Other Other 1 Family history of Cancer, cervical; Diabetes Other 2 Family history of Diabetes mellitus; Gout Other 2 Anesthesia problems Neg Hx Relation Name Status Comments Other 1 Other 2 Social History Tobacco Use Types Packs/Day Years Used Date Smoking Tobacco: Some Days Cigarettes 1 40 Started: 1984 Smokeless Tobacco: Never Tobacco Cessation:Ready to Q uit: Not Asked; Counseling Given: Not Answered Alcohol Use Standard Drinks/Week Comments No 0 [...] on file Legal Sex Female 11:50 PM HEATING AND REFRIGERATION INSPECTOR Gender Identity Not on file Sexual Orientation Not on file Obstetrics History Para Term AB IAB SAB Ectopic Multiple Livin g Live Births 3 3 3 Date Outcome GA Total Labor Labor/2nd/3rd Weight Sex Type Anes PTL Estela A1 A5 Name Clin Term Term Term Last Filed Vital Signs Vital Sign Reading Time Taken Comments Blood Pressure 136/83 04/24/2023 8:41 AM CDT Pulse 91 04/24/2023 8:41 AM CDT Temperature 36.6 ??C (97.9 ??F) 03/28/2023 4:35 PM CD T Respiratory Rate 18 03/28/2023 4:35 PM CDT Oxygen Saturation 98% 03/28/2023 4:35 PM CDT Inhaled Oxygen Concentration - - Weight 81.6 kg (180 lb) 10/05/2024 4:44 PM HEATING AND REFRIGERATION INSPECTOR Height 167.6 cm (5' 6 ) 10/05/2024 4:44 PM HEATING AND REFRIGERATION INSPECTOR Body Mass Index 29.05 10/05/2024 4:44 PM HEATING AND REFRIGERATION INSPECTOR Plan of Treatment Health Maintenance Due Date Last Done Comments Cervical Cancer Screening 1966 Depression Screening 1966 Hepatitis C Screening 1966 Pneumococcal vaccine <65 (1 of 2 - PCV) 1972 DTaP/Tdap/Td Vaccine (1 - Tdap) 1977 Hepatitis B Screening 1984 Regular Well Visit/Exam 18-64 1984 Zoster Vaccine (1 of 2) 2016 Breast Cancer Screening-Mammogram 2023 2022, 11/18/2017, 12/20/2014 Covid-19 Vaccine (2023-2 5 season) 2024 01/31/2021, 01/03/2021 Influenza Vaccine (#1) 2024 08/10/2016 Colon Cancer Screening-Colonoscopy 12/19/20322022, 12/13/2017 Colon Cancer Screening-CT Colonography Discontinued 12/19/2022, 12/13/2017 Colon Cancer Screening-DNA Stool Discontinued 12/19/19 23, 12/13/2017 Colon Cancer Screening-FIT Discontinued 12/19/2022, Colon Cancer Screening-Sigmoidoscopy Discontinued 11/29, 12/13/2017 Procedures Procedure Name Priority Date/Time Associated Diagnosis Comments CT LUNG CANCER SCREENING Schedule Routine, Read Routine (OP Routine) 10/05/2024 4:44 PM HEATING AND REFRIGERATION INSPECTOR Encounter for screening for malignant neoplasm of respiratory organs Nicotine dependence, cigarettes, uncomplicated XR SACROILIAC JOINTS 3 OR MORE VIEWS Schedule Routine, Read Routine (OP Routine) 08/06/2024 9:47 AM CDT Lumbar pain COLONOSCOPY 12/19/2022 7:40 AM HEATING AND REFRIGERATION INSPECTOR DIAGNOSTIC MAMMOGRAM BILATERAL W ABRAHAM Schedule Routine, Read Routine (OP Routine) 2022 8:28 AM HEATING AND REFRIGERATION INSPECTOR Mastodynia from Last 3 Months or Most Recently Relevant to Health Maintenance Results * CT Lung Cancer Screening (10/05/2024 4:44 PM HEATING AND REFRIGERATION INSPECTOR) Anatomical Region Laterality Modality Chest N/A Computed Tomogra phy 10/12/2024 9:00 AM HEATING AND REFRIGERATION INSPECTOR Narrative 10/12/2024 9:14 AM HEATING AND REFRIGERATION INSPECTOR EXAM DESCRIPTION: ?? CT LUNG CANCER SCREENING [...] AM T: ??10/12/2024 9:14 AM Report ID: [id number] Reading Location: ??[id number] Procedure Note Etelvina Terrazas MD - 10/12/2024 [...] Etelvina Matias M.D. FT: FT Report ID: [id number] Reading Location: [id number] Audelia Kim MD IMG CT PROCEDURES Final Resul t * XR Sacroiliac Joints 3 or More Views (08/06/2024 9:47 AM CDT) Anatomical Region Laterality Modality Pelvis, Body N/A Computed Radiogr aphy 08/09/2024 8:19 AM CDT Narrative 08/09/2024 8:19 AM CDT EXAM DESCRIPTION: XR SACROILIAC JOINTS 3 OR MORE VIEWS REASON FOR STUDY: pain ?? Does heavy lifting at work ??Pain couple yrs ? FINDINGS: Three views of the sacroiliac joints are submitted for interpretation without comparison. The sacroiliac joints are normal and symmetric. ??No fracture. IMPRESSION: Normal sacroiliac joints. THIS IS AN ELECTRONICALLY VERIFIED FINAL REPORT 08/09/2024 8:19 AM - Electronically signed by ??Addy Jung M.D. TH: D: ??08/09/2024 8:19 AM T: ??08/09/2024 8:19 AM Report ID: [id number] Reading Location: ??[id number] Procedure Note Addy Jung MD - 08/09/2024 EXAM DESCRIPTION: XR SACROILIAC JOINTS 3 OR MORE VIEWS REASON FOR STUDY: pain Does heavy lifting at work Pain couple yrs FINDINGS: Three views of the sacroiliac joints are submitted for interpretationwithout comparison. The sacroiliac joints are normal and symmetric. No fracture. IMPRESSION: Normal sacroiliac joints. THIS IS AN ELECTRONICALLY VERIFIED FINAL REPORT 08/09/2024 8:19 AM - Electronically signed by Addy Jung M.D. TH: Report ID: [id number] Reading Location: [id number] Audelia Kim MD IMG XR PROCEDURES Final Resul t * COLONOSCOPY (12/19/2022 7:40 AM HEATING AND REFRIGERATION INSPECTOR) Anatomical Region Laterality Modality Other Narrative Procedure Note cSooby Saez MD - 12/19/2022 7:40 AM CST [facility] Patient Name: Chelsea Salazar Procedure Date: 12/19/2022 7:40 AM Date of : 1965 Admit Type: Outpatient Age: 57 Gender: Female Attending MD: Scooyb Saez M.D. [facility] 1 Note Status: Finalized Patient Profile: This is a 57 year old female. History of polyps.Her uncle had colon cancer. Procedure: Colonoscopy Indications: High risk colon cancer surveillance: Personalhistory of colonic polyps, Last colonoscopy: November2017 Referring MD: MALAIKA Arciniega Providers: Scooby Saez M.D. Impression: - The entire examined colon is normal. - Internal hemorrhoids. - No specimens collected. Recommendation: - Repeat colonoscopy in 5 years for screeningpurposes. Medicines: Monitored Anesthesia Care Complications: No immediate complications. Estimated Blood Loss: Estimated blood loss: none. Procedure: Pre-Anesthesia Assessment: - Prior to the procedure, a History and Physicalwas performed, and patient medications and allergieswere reviewed. The patient's tolerance of previous anesthesia was also reviewed. The risks andbenefits of the procedure and the sedation options and risks were discussed with the patient. All questions were answered, and informed consent was obtained. Prior Anticoagulants: The patient has taken noanticoagulant or antiplatelet agents. ASA Grade Assessment: II -A patient with mild systemic disease. After reviewing the risks and benefits, the patient was deemed in satisfactory condition to undergo the procedure. The benefits, risks and alternatives of theprocedure and sedation were discussed and informed consentwas obtained. All questions were answered. Please referto the signed informed consent document in the medical record. The bowel preparation used was Miralax via split dose instruction. The bowel preparation usedwas bisacodyl tablets via split dose instruction. The scope was passed under direct vision. The Pediatric Colonoscope PCF-H190L [id number] was introducedthrough the anus and advanced to the the cecum, identifiedby appendiceal orifice and ileocecal valve. Thequality of the bowel preparation was excellent. Bowel prepwas administered using a split dose. Findings: The perianal and digital rectal examinations were normal. The cecum appeared normal. The colon (entire examined portion) appeared normal. No polyps and no mass lesions noted Internal hemorrhoids were found during retroflexion. The hemorrhoids were small. Electronically signed by Scooby Saez M.D. Scooby Saez M.D. 12/19/2022 9:27:22 AM Number of Addenda: 0 Note Initiated On: 12/19/2022 7:40 AM Procedure Code(s): --- Professional --- 84752, Colonoscopy, flexible; diagnostic, including collection of specimen(s) by brushing or washing, when performed (separateprocedure) Diagnosis Code(s): --- Professional --- Z86.010, Personal history of colonic polyps K64.8, Other hemorrhoids CPT copyright 2020 [employer]. All rights reserved. The codes documented in this report are preliminary and upon physician coder reviewmay be revised to meet current compliance requirements. Recognized by the [employer] for promoting quality in endoscopy us Scooby Saez MD ENDOSCOPY PROCEDURES Final Result * Diagnostic Mammogram Bilateral W Abraham (2022 8:28 AM HEATING AND REFRIGERATION INSPECTOR) Anatomical Region Laterality Modality Breast Bilateral Mammography 2022 10:0 5 AM HEATING AND REFRIGERATION INSPECTOR Impressions 2022 10:05 AM HEATING AND REFRIGERATION INSPECTOR 1. ??No findings identified in the left breast to account for patient's pain on mammogram or sonogram. ??Continued monthly breast self-examination and clinical follow-up is recommended. ??Any further management at this time should be based on clinical assessment. 2. ??No new suspicious findings in either breast mammogram. ??Annual bilateral screening mammography is recommended in 12 months. BI-RADS: 1 - Negative. I discussed the findings and recommendations with the patient at time of the examination. Electronically signed by: VERONIKA Ackerman 2022 10:05 AM HEATING AND REFRIGERATION INSPECTOR EXAMINATION: DIAGNOSTIC MAMMOGRAM BILATERAL W ABRAHAM, US BREAST LEFT LIMITED ORDERING HEALTHCARE PROVIDER: AUDELIA KIM HISTORY: 57-year-old woman comes in today to evaluate intermittent diffuse breast pain in the lower outer left breast, an routine screening of the right breast. COMPARISON: ??11/18/2017 TECHNIQUE: CC and MLO views of both breasts ??were obtained with digital technique using digital breast tomosynthesis with C view. Computer aided detection was utilized. Targeted sonographic examination of the left breast was performed real-time grayscale images and color Doppler. FINDINGS: MAMMOGRAPHIC FINDINGS: There is scattered fibroglandular tissue There are no new suspicious findings in either breast mammogram. SONOGRAPHIC FINDINGS: Targeted sonographic examination of the area of pain between the 3:00 and 5:00 positions of the left breast posterior depth demonstrate only benign fibroglandular and fatty tissue without suspicious solid or cystic masses. Audelia Kim MD IMG MAMMO PROCEDURES Final Re sult from Last 3 Months or Most Recently Relevant to Health Maintenance Insurance [facility] [employer] OPEN ACCESS [facility] C[facility] Advance Directives For more information, please contact: [phone] * Full Code (Latest Code Status on File) Date Activated Date Inactivated Comments 12/19/2022 7:35 AM 12/19/2022 2:06 PM * Full Code Date Activated Date Inactivated Comments 12/19/2022 7:35 AM 12/19/2022 7:35 AM * Full Code Date Activated Date Inactivated Comments 12/13/2017 9:04 AM 12/13/2017 1:19 PM Care Teams Plant Engineering Supervisor Relationship Specialty Start Date End Date Audelia Kim MD [address] [place] [address] PCP - fruit farmer Obstetrics and Gynecology 11/30/22 Johnny Mcgill PA [address] [place] [address] PCP - General Family Practice 11/30/22 Michael Otoole MD Referring Physician Otolaryngology 06/15/21
--- OUTSIDE RECORDS SUMMARY | 2024-10-25 08:00 | XMS_ITS | Encounter Summary ---
Author Organization [facility] Address [address] [facility] [address] [place] [address] Care Team Providers Care Marzipan Molder Name Role Phone Johnny Mcgill Primary Care Provider [phone] Encounter Details Date Type Department Care Team (Late st Contact Info) Description 11/22/2020 Telephone [facility] Medical [facility] at [address] [place] [id number] Scooby Saez MD [address] [place] [address] [address] [place] [address] Social History Tobacco Use Types Packs/Day Years Used Date Smoking Tobacco: Every Day Cigarettes 1 25 Smokeless Tobacco: Never Alcohol Use Standard Drinks/Week Comments No 0 (1 standard drink = 0.6 oz pur e alcohol) Comments No Sex and Gender Information Value Date Recorded Sex Assigned at Not on file Legal Sex Female 11:50 PM 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 Jon is scheduled for colonoscopy on 01-31-2021 @ 1:00 pm Last colonoscopy: 12-13-2017 Family history colon cancer (if yes, relationship to pt): Yes maternal uncle Personal history colon polyps or colon cancer: yes Polyps Pt on blood thinner (if yes, list medication and reason for taking): no Has pt had recent stent placement within the last year: no Pt have pacemaker/defibrillator: no Pt diabetic (if yes, insulin or oral meds): no Pt have kidney disease or on dialysis: no Pt on iron: no Hx of Constipation: no Mechanical Heart valve: no COVID-19 test verbally given to pt:no Instructed pt to call with any medical changes and/or medications/insurance. [employer] DEPARTMENT documented in this encounter Plan of Treatment Not on file documented as of this encounter Visit Diagnoses Diagnosis Family history of colon cancer- Primary Family history of malignant neoplasm of gastrointestinal tract Personal history of colonic polyps Encounter for screening colonoscopy documented in this encounter Care Teams Marzipan Molder Relationship Specialty Start Date End Date Johnny Mcgill PA [address] [place] [address] PCP - General 11/04/17 06/14/21 documented as of this encounter
--- OUTSIDE RECORDS SUMMARY | 2024-10-25 08:00 | XMS_ITS | Encounter Summary ---
Author Organization [facility] Address [address] [place] [address] Care Team Providers Care Right Of Way Worker Name Role Phone Michael Otoole MD Unavailable [phone] Olegario Kim MD Unavailable [phone] Johnny Mcgill Primary Care Provider [phone] Reason for Visit * Diagnostic Imaging (Routine) - Closed Specialty Diagnoses / Procedures Referred By Contderek t Referred To Contact Diagnoses Mastodynia Procedures US Breast Left Limited US Breast Bilateral Limited Olegario Kim MD [address] [place] [address] Phone: tel: fax: [address] [address] Referral ID Status Reason Start Date Expiration Date Visits Re quested Visits Authorized [id number] Closed 11/06/2022 11/21/2022 1 1 Encounter Details Date Type Department Care Team (Latest Contact Info) Description 2022 8:07 AM CUFF TURNER - 2022 11:59 PM CUFF TURNER Hospital Encounter [facility] [address] [place] [id number] Mastodynia Discharge Disposition: Discharge to home or self [...] on file Legal Sex Female 11:50 PM CUFF TURNER Gender Identity Not on file Sexual Orientation Not on file documented as of this encounter Medications at Time of Discharge acetaminophen (TYLENOL) 500 mg tablet Take 1,000 mg by mouth every 6 (six) hours as needed for pain 04/24/2023 documented as of this encounter Discharge Disposition Disposition Code Departure Means Destination Discharge to home or self care documented in this encounter Plan of Treatment Not on file documented as of this encounter Procedures Procedure Name Priority Date/Time Associated Diagnosis Comments US BREAST LEFT LIMITED Schedule Routine, Read Routine (OP Routine) 2022 9:40 AM CUFF TURNER Mastodynia documented in this encounter Results * US Breast Left Limited (2022 9:40 AM CUFF TURNER) Anatomical Region Laterality Modality Breast Left Ultrasound 2022 10:0 5 AM CUFF TURNER Impressions 2022 10:05 AM CUFF TURNER 1. ??No findings identified in the left [...] signed by: VERONIKA Ackerman 2022 10:05 AM CUFF TURNER EXAMINATION: DIAGNOSTIC MAMMOGRAM BILATERAL W NAZARIO, US BREAST LEFT LIMITED ORDERING HEALTHCARE PROVIDER: OLEGARIO KIM HISTORY: 57-year-old woman comes in today [...] tissue without suspicious solid or cystic masses. Olegario Kim MD IMG MAMMO PROCEDURES Final Re sult documented in this encounter Visit Diagnoses Diagnosis Mastodynia documented in this encounter Care Teams Right Of Way Worker Relationship Specialty Start Date End Date Olegario Kim MD [address] [facility] [address] [address] PCP - presiding steward Obstetrics and Gynecology 11/30/22 Johnny Mcgill PA [address] [place] [address] PCP - General Family Practice 11/30/22 Michael Otoole MD Referring Physician Otolaryngology 06/15/21 documented as of this encounter
--- OUTSIDE RECORDS SUMMARY | 2024-10-25 08:00 | XMS_ITS | Encounter Summary ---
Author Organization [facility] Healthcare Address [address] [place] [address] Care Team Providers Care On Air Host Name Role Phone Michael Otoole MD Unavailable [phone] Audelia Kim MD Unavailable [phone] Johnny Mcgill Primary Care Provider [phone] Reason for Visit * Auth/Cert Specialty Diagnoses / Procedures Referred By Contac t Referred To Contact Diagnoses Personal history of colonic polyps Family history of colon cancer Personal history of colonic polyps [Z86.010] Family history of colon cancer [Z80.0] Procedures [facility] COLONOSCOPY FLX DX W/COLLJ SPEC WHEN PFRMD COLONOSCOPY Referral ID Status Reason Start Date Expiration Date Visits Re quested Visits Authorized [id number] 1 1 Encounter Details Date Type Department Care Team (Latest Contact Info) Description 12/19/2022 7:31 AM BRICK TENDER - 12/19/2022 10:05 AM [facility] Hospital Encounter [facility] [address] [place] [address] Scooby Saez MD [address] [place] [id number] Discharge Disposition: Discharge to home or self [...] on file Legal Sex Female 11:50 PM BRICK TENDER Gender Identity Not on file Sexual Orientation Not on file documented as of this encounter Last Filed Vital Signs Vital Sign Reading Time Taken Comments Blood Pressure 115/67 12/19/2022 9:49 AM BRICK TENDER Pulse 75 12/19/2022 9:49 AM BRICK TENDER Temperature 36.7 ??C (98 ??F) 12/19/2022 9:49 AM BRICK TENDER Respiratory Rate 18 12/19/2022 9:49 AM BRICK TENDER Oxygen Saturation 100% 12/19/2022 9:49 AM BRICK TENDER Inhaled Oxygen Concentration - - Weight 82.1 kg (181 lb) 12/19/2022 7:42 AM BRICK TENDER Height 170.2 cm (5' 7 ) 12/19/2022 7:42 AM BRICK TENDER Body Mass Index 28.35 12/19/2022 7:42 AM BRICK TENDER documented in this encounter Medications at Time of Discharge acetaminophen (TYLENOL) 500 mg tablet Take 1,000 mg by mouth every 6 (six) hours as needed for pain 04/24/2023 documented as of this encounter Discharge Disposition Disposition Code Departure Means Destination Comment s Discharge to home or self care documented in this encounter H&P Notes * Scooby Saez MD - 12/19/2022 9:22 AM CST History and Physical Date of visit: 12/19/2022 Subjective: Patient is a 57 y.o. female presented for evaluation for screening for colon cancer. H/o polyps. Uncle had colon cancer. Past Medical History: Diagnosis Date Colon polyp Fibrocystic breast Smoking Past Surgical History: Procedure Laterality Date COLONOSCOPY 11/2015 COLONOSCOPY 12/13/2017 ECTOPIC SURGERY 1989 tubal TUBAL LIGATION 1990 Medications Prior to Admission Medication Sig Dispense Refill Last Dose acetaminophen (TYLENOL) 500 mg tablet Take 1,000 mg by mouth every 6 (six) hours as needed for pain No Known Allergies Social History Tobacco Use Smoking status: Former Packs/day: 0.50 Years: 25.00 Pack years: 12.50 Types: Cigarettes Start date: 1984 Quit date: 1993 Years since quittin.1 Smokeless tobacco: Never Substance and Sexual Activity Drug use: No Sexual activity: Defer Alcohol Use: Not on file Family History Problem Relation Age of Onset Other Other Family history of Cancer, cervical; Diabetes Other Family history of Diabetes mellitus; Anesthesia problems Neg Hx Physical Exam: Patient is awake and answers well. Eyes: no jaundice. Lungs: CTA anteriorly. ENT: no mouth ulcers. Abdomen: soft, no distention, no tenderness, bowel sounds positive. Extremities: no edema. Skin: no rash. GI IMPRESSION: 1. Screening for colon cancer GI PLAN/RECOMMENDATIONS: colonoscopy Scooby Saez MD K TENDER documented in this encounter Procedure Notes * Scooby Saez MD - 12/19/2022 7:40 AM CSTAssociated Order(s): COLONOSCOPY [facility] [place] Patient Name: Chelsea Jon Procedure Date: 12/19/2022 7:40 AM Date of : 1965 Admit Type: Outpatient Age: 57 Gender: Female Attending MD: Scooby Saez M.D. Room: [facility] ENDOSCOPY ROOM 1 Note Status: Finalized Patient Profile: This is a 57 year old female. History of polyps. Her uncle had colon cancer. Procedure: Colonoscopy Indications: High risk colon cancer surveillance: Personal history of colonic polyps, Last colonoscopy: November 2017 Referring MD: MALAIKA Arciniega Providers: Scooby Saez M.D. Impression: - The entire examined colon is normal. - Internal hemorrhoids. - No specimens collected. Recommendation: - Repeat colonoscopy in 5 years for screening purposes. Medicines: Monitored Anesthesia Care Complications: No immediate [...] Prior Anticoagulants: The patient has taken no anticoagulant or antiplatelet agents. ASA Grade Assessment: [...] via split dose instruction. The bowel preparation used was bisacodyl tablets via split dose instruction. The scope was passed under direct vision. The Pediatric Colonoscope PCF-H190L [id number] was introduced through the anus and advanced to the the cecum, identified by appendiceal orifice and ileocecal valve. The quality of the bowel preparation was excellent. Bowel prep was administered using a split dose. Findings: The [...] 7:40 AM Procedure Code(s): --- Professional --- 54651, Colonoscopy, flexible; diagnostic, including collection of specimen(s) by brushing or washing, when performed (separate procedure) Diagnosis Code(s): --- Professional --- Z86.010, Personal history of colonic polyps K64.8, Other hemorrhoids CPT copyright 2020 [employer]. All rights reserved. The codes documented in this report are preliminary and upon coin counter and wrapper review may be revised to meet current compliance requirements. Recognized by the [employer] for promoting quality in endoscopy K TENDER documented in this encounter Miscellaneous Notes * Perioperative Nursing Note - Sree Guevara RN - 12/19/2022 9:[address] Saez spoke with the patient about the procedure. Patient is to repeat a colonoscopy in 5 years. K TENDER documented in this encounter Plan of Treatment Not on file documented as of this encounter Procedures Procedure Name Priority Date/Time Associated Diagnosis Comments COLONOSCOPY 12/19/2022 8:56 AM BRICK TENDER Personal history of colonic polyps Family history of colon cancer COLONOSCOPY 12/19/2022 7:40 AM BRICK TENDER documented in this encounter Results * COLONOSCOPY (12/19/2022 7:40 AM BRICK TENDER) Anatomical Region Laterality Modality Other Narrative Procedure Note Scooby Saez MD - 12/19/2022 7:[address] [facility] Patient Name: Chelsea Jon Procedure Date: 12/19/2022 7:40 AM Date of : 1965 Admit Type: Outpatient Age: 57 Gender: Female Attending MD: Scooby Saez M.D. Room: [facility] ENDOSCOPY RO[facility] 1 Note Status: Finalized [...] under direct vision. The Pediatric Colonoscope PCF-H190L [id number] was introducedthrough the anus and advanced to [...] 7:40 AM Procedure Code(s): --- Professional --- 54695, Colonoscopy, flexible; diagnostic, including collection of specimen(s) by brushing or washing, when performed (separateprocedure) Diagnosis Code(s): --- Professional --- Z86.010, Personal history of colonic polyps K64.8, Other hemorrhoids CPT copyright 2020 [employer]. All rights reserved. The codes documented in this report are preliminary and upon coin counter and wrapper reviewmay be revised to meet current compliance requirements. Recognized by the [employer] for promoting quality in endoscopy us Scooby Saez MD ENDOSCOPY PROCEDURES Final Result documented in this encounter Visit Diagnoses Diagnosis Personal history of colonic polyps Family history of colon cancer Family history of malignant neoplasm of gastrointestinal tract documented in this encounter Admitting Diagnoses Diagnosis Personal history of colonic polyps Family history of colon cancer Family history of malignant neoplasm of gastrointestinal tract documented in this encounter Administered Medications Inactive Administered Medications - up to 3 most recent administrations Medication Order MAR Action Action Date Dose Rate Site ondansetron (ZOFRAN) injection 4 mg 4 mg, intravenous, Administer over 2 Minutes, Every 30 min PRN, nausea, vomiting, Starting on Sat12/19/22 at 0734, For 2 doses, Recovery (GI), Indications: Nausea and VomitingIndications:Nausea and Vomiting sodium chloride 0.9% flush 0.5-20 mL 0.5-20 mL, intra-catheter, As needed, line care, Starting on Sat12/19/22 at 0735, Pre-Procedure (GI), Flush volume based on line type and size. Flush before and after each use. sodium chloride 0.9% infusion 30 mL/hr, intravenous, Continuous, Starting on Sat12/19/22 at 0815, Pre-Procedure (GI) Restarted 12/19/2022 9:04 AM BRICK TENDER New Bag 12/19/2022 7:57 AM BRICK TENDER 30 mL/hr 30 mL/hr sodium chloride 0.9% infusion 125 mL/hr, intravenous, Continuous, Starting on Sat12/19/22 at 0815, Recovery (GI) documented in this encounter Active and Recently Administered Medications Times are shown in BRICK TENDER. Continuous Medication Order 12/17/2022 12/18/2022 12/19/2022 sodium chloride 0.9% infusion 30 mL/hr, intravenous, Continuous, Starting on Sat12/19/22 at 0815, Pre-Procedure (GI) 0757 (New Bag - Prov ider: Sree Guevara RN)0903 (Paused - Provider: Alejandra Ravi CRNA - Comment: Switch to gravity)0904 (Restarted - Provider: Alejandra Ravi CRNA)0916 (Anesthesia Volume Adjustment - Provider: Alejandra Ravi CRNA)1406 (Due: Stopped) sodium chloride 0.9% infusion 125 mL/hr, intravenous, Continuous, Starting on Sat12/19/22 at 0815, Recovery (GI) 0815 (Due) PRN Medication Order 12/17/2022 12/18/2022 12/19/2022 ondansetron (ZOFRAN) injection 4 mg 4 mg, intravenous, Administer over 2 Minutes, Every 30 min PRN, nausea, vomiting, Starting on Sat12/19/22 at 0734, For 2 doses, Recovery (GI), Indications: Nausea and Vomiting sodium chloride 0.9% flush 0.5-20 mL 0.5-20 mL, intra-catheter, As needed, line care, Starting on Sat12/19/22 at 0735, Pre-Procedure (GI), Flush volume based on line type and size. Flush before and after each use. documented in this encounter Orders Medications Ordered That Saúl ht Not Have Been Administered Count Last Ordered Date First Ordered Date ondansetron (ZOFRAN) injection 4 mg 1 12/19 sodium chloride 0.9% flush 0.5-20 mL 1 11/29 sodium chloride 0.9% infusion 1 12/19/2022 Discharge Count Last Ordered Date First Orde red Date DISCHARGE PATIENT 1 12/19/2022 documented in this encounter Care Teams On Air Host Relationship Specialty Start Date End Date Audelia Kim MD [address] [place] [address] [place] [address] PCP - pallet repairer Obstetrics and Gynecology 11/30/22 Johnny Mcgill PA [address] [place] [address] PCP - General Family Practice 11/30/22 Michael Otoole MD Referring Physician Otolaryngology 06/15/21 documented as of this encounter
--- OUTSIDE RECORDS SUMMARY | 2024-10-25 08:00 | XMS_ITS | Encounter Summary ---
Author Organization [facility] Address [address] [place] [address] Care Team Providers Care Oncology Account Specialist Name Role Phone Michael Otoole MD Unavailable [phone] Audelia Kim MD Unavailable [phone] Johnny Mcgill Primary Care Provider [phone] Reason for Referral * MRI/CAT/PET Scan (Routine) - Closed Specialty Diagnoses / Procedures Referred By Contac t Referred To Contact Radiology Diagnoses Personal history of nicotine dependence Procedures CT Lung Cancer Screening Audelia Kim MD [address] [place] [address] [place] [address] Phone: tel: fax: [address] [phone] Referral ID Status Reason Start Date Expiration Date Visits Re quested Visits Authorized [id number] Closed 12/13/2022 01/10/2023 1 1 K COACH Reason for Visit * MRI/CAT/PET Scan (Routine) - Closed Specialty Diagnoses / Procedures Referred By Panfilo ventura Referred To Contact Radiology Diagnoses Personal history of nicotine dependence Procedures CT Lung Cancer Screening Audelia Kim MD [address] [place] [address] [place] [address] Phone: tel: fax: [address] [phone] Referral ID Status Reason Start Date Expiration Date Visits Re quested Visits Authorized [id number] Closed 12/13/2022 01/10/2023 1 1 Encounter Details Date Type Department Care Team (Latest Contact Info) Description 12/31/2022 3:58 PM TRACK COACH - 12/31/2022 11:59 PM TRACK COACH Hospital Encounter [facility] [address] [place] [id number] Personal history of nicotine dependence Discharge Disposition: Discharge to home or self [...] on file Legal Sex Female 11:50 PM TRACK COACH Gender Identity Not on file Sexual Orientation Not on file documented as of this encounter Last Filed Vital Signs Vital Sign Reading Time Taken Comments Blood Pressure - - Pulse - - Temperature - - Respiratory Rate - - Oxygen Saturation - - Inhaled Oxygen Concentration - - Weight 82.1 kg (181 lb) 12/31/2022 5:24 PM TRACK COACH Height 170.2 cm (5' 7 ) 12/31/2022 5:24 PM TRACK COACH Body Mass Index 28.35 12/31/2022 5:24 PM TRACK COACH documented in this encounter Medications at Time [...] SCREENING Schedule Routine, Read Routine (OP Routine) 12/31/2022 5:23 PM TRACK COACH Personal history of nicotine dependence documented in this encounter Results * CT Lung Cancer Screening (12/31/2022 5:23 PM TRACK COACH) Anatomical Region Laterality Modality Chest N/A Computed Tomogra phy 01/01/2023 1:46 PM TRACK COACH Narrative 01/01/2023 2:00 PM TRACK COACH EXAM DESCRIPTION: ?? CT LUNG CANCER SCREENING [...] CT dose index volume (CTDIvol) = ?? 2.7 ??mGy COMPARISON: ?? None FINDINGS: SMOKING RELATED LUNG DISEASE: ?? There are igfb-fw-iptzdlzq emphysematous changes of lungs with scattered mild subsegmental atelectasis and scarring. ?? There is no definite evidence of a pneumothorax. ??The central airways are grossly patent. ??There is no definite evidence of focal consolidation or pleural effusion. LUNG NODULES: ?? There is a 0.5 cm right upper lobe pulmonary nodule (axial image 65). ??There is a 0.4 cm right upper lobe pulmonary nodule (axial image 78). ??There is an irregular right lower lobe pulmonary nodule measuring 1.0 x 0.6 cm (mean diameter 0.8 cm, axial image 128). ??There is a subpleural 0.5 cm right upper lobe pulmonary nodule abutting the right minor fissure (axial image 141). ??There is an irregular 0.6 x 0.4 cm right lower lobe pulmonary nodule (axial image 166). ??There are a few fissural nodules noted along the left major fissure with the largest measuring 0.5 cm (axial image 132). ??There is an irregular 0.5 cm left upper lobe pulmonary nodule (axial image 147). ?? There is a 0.4 cm left lower lobe pulmonary nodule (axial image 175). CORONARY ARTERY CALCIFICATION: ??Not identified. OTHER: ?? The heart size is normal. ??There is no definite evidence of pericardial effusion. ??There are atherosclerotic changes of thoracic aorta. There is no definite unenhanced CT evidence of mediastinal, hilar, or axillary lymphadenopathy. ??There are scattered prominent subcentimeter mediastinal lymph nodes noted with the largest measuring 0.9 cm in the AP window (axial image 85). ??There are scattered prominent subcentimeter hilar lymph nodes noted bilaterally with the largest measuring 0.7 cm on the right (axial image 136), and 0.7 cm on the left (axial image 123). There is a small hiatal hernia. ??There is a cyst noted in the anterior left hepatic lobe measuring 1.9 cm, which does not require follow-up imaging. There is a dextroscoliotic curvature of the spine with degenerative changes. IMPRESSION: ?? 1. ?? Scattered pulmonary nodules with the largest measuring up to 1.0 x 0.6 cm in the right lower lobe. ??Short-term follow-up low-dose chest CT in 3 months is recommended to assess for stability as clinically indicated. 2. ?? Wwur-fi-hinubflj emphysematous changes of lungs with scattered mild subsegmental atelectasis and scarring. Lung-RADS v1.1 category ??4A: Suspicious. Recommendation: ??Low dose CT of chest in 3 months. THIS IS AN ELECTRONICALLY VERIFIED FINAL REPORT 01/01/2023 2:00 PM - Electronically signed by ??Blade Walls D.O. PS: PS D: ??01/01/2023 2:00 PM T: ??01/01/2023 2:00 PM Report ID: [id number] Reading Location: ??[id number] Procedure Note Blade Walls, - 01/01/2023 EXAM DESCRIPTION: CT LUNG CANCER SCREENING REASON [...] DOSE: CT dose index volume (CTDIvol) = 2.7 mGy COMPARISON: None FINDINGS: SMOKING RELATED LUNG DISEASE: There are okbj-cy-qwdcuocp emphysematous changes of lungs with scattered mild subsegmental atelectasis andscarring. There is no definite evidence of a pneumothorax. The central airways are grossly patent. There is no definite evidence of focal consolidation or pleural effusion. LUNG NODULES: There is a 0.5 cm right upper lobe pulmonary nodule (axial image 65). There is a 0.4 cm right upper lobe pulmonary nodule (axialimage 78). There is an irregular right lower lobe pulmonary nodule measuring1.0 x 0.6 cm (mean diameter 0.8 cm, axial image 128). There is a subpleural 0.5cm right upper lobe pulmonary nodule abutting the right minor fissure (axial image 141). There is an irregular 0.6 x 0.4 cm right lower lobe pulmonary nodule (axial image 166). There are a few fissural nodules noted alongthe left major fissure with the largest measuring 0.5 cm (axial image 132).There is an irregular 0.5 cm left upper lobe pulmonary nodule (axial image 147). There is a 0.4 cm left lower lobe pulmonary nodule (axial image 175). CORONARY ARTERY CALCIFICATION: Not identified. OTHER: The heart size is normal. There is no definite evidence of pericardial effusion. There are atherosclerotic changes of thoracicaorta. There is no definite unenhanced CT evidence of mediastinal, hilar, oraxillary lymphadenopathy. There are scattered prominent subcentimeter mediastinal lymph nodes noted with the largest measuring 0.9 cm in the AP window(axial image 85). There are scattered prominent subcentimeter hilar lymph nodes noted bilaterally with the largest measuring 0.7 cm on the right (axialimage 136), and 0.7 cm on the left (axial image 123). There is a small hiatal hernia. There is a cyst noted in the anteriorleft hepatic lobe measuring 1.9 cm, which does not require follow-up imaging. There is a dextroscoliotic curvature of the spine with degenerativechanges. IMPRESSION: 1. Scattered pulmonary nodules with the largest measuring up to 1.0 x0.6 cm in the right lower lobe. Short-term follow-up low-dose chest CT in 3months is recommended to assess for stability as clinically indicated. 2. Osdb-yd-rkhobrhu emphysematous changes of lungs with scattered mild subsegmental atelectasis and scarring. Lung-RADS v1.1 category 4A: Suspicious. Recommendation: Low dose CT of chest in 3 months. THIS IS AN ELECTRONICALLY VERIFIED FINAL REPORT 01/01/2023 2:00 PM - Electronically signed by Blade Walls D.O. PS: PS Report ID: [id number] Reading Location: [place] [address] Audelia Kim MD IMG CT PROCEDURES Final Resul t documented in this encounter Visit Diagnoses Diagnosis Personal history of nicotine dependence documented in this encounter Care Teams Oncology Account Specialist Relationship Specialty Start Date End Date Audelia Kim MD [address] [place] [address] [place] [address] PCP - v belt builder Obstetrics and Gynecology 11/30/22 Johnny Mcgill PA [address] [place] [address] PCP - General Family Practice 11/30/22 Michael Otoole MD Referring Physician Otolaryngology 06/15/21 documented as of this encounter
--- OUTSIDE RECORDS SUMMARY | 2024-10-25 08:00 | XMS_ITS | Encounter Summary ---
Author Organization [facility] Medical [facility] Address [address] [place] [id number] Care Team Providers Care Well Driller Helper Name Role Phone Michael Otoole MD Unavailable [phone] Audelia Kim MD Unavailable [phone] Johnyn Mcgill Primary Care Provider [phone] Reason for Referral * Procedure (Routine) - Closed Specialty Diagnoses / Procedures Referred By Panfilo t Referred To Contact Diagnoses De Quervain's tenosynovitis, right Procedures De Quervain's injection: R extensor compartment 1 Alejandra Mcclellan MD Phone: tel: fax: [facility] Referral ID Status Reason Start Date Expiration Date Visits Re quested Visits Authorized [id number] Closed 04/24/2023 05/23/2024 1 1 Reason for Visit * Reason Comments Pain DOI: 12/19/2022 (aft er IV)[facility] ED: 03/28/2023 Encounter Details Date Type Department Care Team (Late st Contact Info) Description 04/24/2023 9:00 AM CDT Office Visit [facility] Medical [facility] Sports Medicine and Primary Care at [address] [place] [address] Alejandra Mcclellan MD [address] [place] [address] [address] [place] [address] De Querradha's tenosynovitis, right (Primary Dx) Social History Tobacco Use Types Packs/Day Years [...] on file Legal Sex Female 11:50 PM [employer] Gender Identity Not on file Sexual Orientation Not on file documented as of this encounter Last Filed Vital Signs Vital Sign Reading Time Taken Comments Blood Pressure 136/83 04/24/2023 8:41 AM CDT Pulse 91 04/24/2023 8:41 AM CDT Temperature - - Respiratory Rate - - Oxygen Saturation - - Inhaled Oxygen Concentration - - Weight 86.1 kg (189 lb 12.8 oz) 04/24/2023 8:41 AM CDT Height 170.2 cm (5' 7 ) 04/24/2023 8:41 AM CDT Body Mass Index 29.73 04/24/2023 8:41 AM CDT documented in this encounter Patient Instructions * Patient Instructions* Alejandra Mcclellan MD - 04/24/2023 9:00 AM CDT You received a Cortisone injection today. Continue to rest the joint for a few more days before resuming regular activities. It may be more painful for the first 1-2 days. Apply ice to the area for 5-10 minutes three times a day for 3 days. Watch for fever, or increased swelling or persistent pain in the joint. It can take a least 3-5 days to start seeing benefit of the injection. Call or return to clinic as needed if such symptoms occur or there is failure to improve as anticipated. Consider using a over the counter thumb spica splint for a couple weeks. In a week or 2, start PT documented in this encounter Progress Notes * Alejandra Mcclellan MD - 04/24/2023 9:00 AM CDT Images from the original note were not included. [facility] at [facility] Consult PCP: Johnny Mcgill PA Chief Complaint Patient presents with Right Wrist - Pain DOI: 12/19/2022 (after IV) COUNT INCLUDES THE [facility] ED: 03/28/2023 NEW PATIENT VISIT Subjective CHIEF COMPLAINT She had concerns including Pain of the Right Wrist (DOI: 12/19/2022 (after IV)/COUNT INCLUDES THE [facility] ED: 03/28/2023). HISTORY OF PRESENT ILLINESS Right wrist pain since December 19 when had IV placed in the vicinity of the 1st dorsal compartment. Notes on attempted IV placement they may have hit something as hand jerked. Not documentation of IV infiltration. Had some bruising and swelling after. 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 Pt reportedly was off work for almost 2 months due to the pain. Was given off work for 2 months forissues but did not have any treatment other than ice, heat, over the counter. Seen in ER a couple weeks ago and given medrol dose javier and wrist splint. Pt reports it was not a thumb spica. Order per chart review was a cock-up wrist splint No real tingling or numbness. More a burning pain Denies DM, thyroid disease Pain Assessment Pain Assessment: 0-10 Pain Score: (Now: 0/10, Worst: 10/10) Pain Location: Wrist Pain Orientation: Right Pain Descriptors: Burning, Discomfort, Sharp, Aching, Radiating, Sore, Tender Pain Frequency: Intermittent Pain Onset: Gradual Date Pain First Started: 12/19/22 Clinical Progression: Gradually worsening Aggravating Factors: Bending, Stretching, Straightening, Exercise Result of Injury: Yes (IV) Work-Related Injury: No Patient's Stated Pain Goal: No pain Pain Interventions: Rest, Compression, Elevated, Pillow, Other (Comment), Medication (See MAR), Home medication, Cold pack, Heat applied, Cold applied, Splinting (Steriod and bracing) PAST MEDICAL HISTORY She has a past medical history of Colon polyp, Fibrocystic breast, and Smoking. She has no past medical history of Atypical ductal hyperplasia of breast, BRCA1 negative, BRCA1 positive, BRCA2 negative, BRCA2 positive, Breast cancer (HCC), Breast cyst, Breast injury, Chemotherapyadverse reaction, Colon cancer (CMS/HCC) (HCC), Ductal hyperplasia of breast, Endometrial cancer (CMS/HCC) (HCC), History of radiation therapy, Lobular carcinoma in situ of breast, Ovarian cancer (HCC), or Thyroid cancer (HCC). PAST SURGICAL HISTORY She has a past surgical history that includes Ectopic surgery (1989); Tubal ligation (1990); Colonoscopy; and Colonoscopy (12/13/2017). MEDICATIONS She has a current medication list which includes the following prescription(s): ibuprofen. ALLERGIES She has No Known Allergies. SOCIAL HISTORY She reports that she has been smoking cigarettes. She started smoking about 38 years ago. She has a35.00 pack-year smoking history. She has never used smokeless tobacco. She reports that she does not use drugs. Patient reports consuming alcoholic drinks monthly or less, with a daily consumption ofdrinks. Patient denies daily consumption of 6 or more alcoholic drinks at one occasion. FAMILY HISTORY Family History Problem Relation Age of Onset Other Other Family history of Cancer, cervical; Diabetes Other Family history of Diabetes mellitus; Gout Other Anesthesia problems Neg Hx REVIEW OF SYSTEMS Review of Systems Objective PHYSICAL EXAM BP 136/83 Pulse 91 Ht 170.2 cm (5' 7 ) Wt 86.1 kg (189 lb 12.8 oz) BMI 29.73 kg/m?? Ortho Exam right wrist/hand exam: Inspection: Swelling to radial side of wrist and distal forearm corresponding to muscles of 1st dorsal compartment present but very mild, Bruising no, deformity no, no atrophy to thenar eminence, no atrophy to 1st dorsal interosseus muscle Tenderness to Palpation: modeerate tenderness over the 1st dorsal compartment and radial side of the distal forearm over themuscle bellies of the abductor pollicis longus and extensor pollicis brevis No tenderness over anatomic snuffbox, bony aspect of distal radius, distal ulna & ulnar styloid, DRUJ, TFCC, carpal bones, metacarpals, 1st carpal metacarpal joint, MCPs, phalanges ROM: Ulnar deviation wrist intact, radial deviation wrist intact, wrist flexion intact, wrist extension intact, fingers intact Strength:5/5 elbow flexion, 5/5 elbow extension, 5/5 wrist flexion, 5/5 wrist extension, 5/5 entry level, 5/5 finger ABduction, 5/5 thumb opposition, thumb ABduction/extension 4/5 with pain Special tests: Shashank's: Positive Intersection syndrome test: no Crepitus over intersection area of 1st & 2nd dorsal compartment (~5 cm proximal to the wrist) with resisted wrist extension and thumb extension Tinel's at carpal tunnel: negative No DRUJ instability, Santos's test negative, TFCC grind Negative, No pain with axial loading of metacarpals, Vascular: CR < 3 seconds, 2+ symmetric bilateral radial and ulnar pulses Sensation: sensation intact to light touch in all dermatomes Contralateral wrist: no tenderness to palpation over anatomic snuffbox, distal radius/ulnar, radial and ulnar styloids, DRUJ, carpal bones, metacarpals, and phalanges. ROM intact in wrist and fingers. Strength intact. REVIEW OF X-RAYS/STUDIES/LABS Study Result Narrative & Impression EXAM DESCRIPTION: XR WRIST RIGHT 3 OR MORE VIEWS REASON FOR STUDY: Pain along the radial aspect since November 2022 Pt reports in November 2022 she had an IV placed in her right forearm and it has been painful since. Pain along radial aspect. No Hx of right wrist fxs or surgery. TECHNIQUE: 3 radiographic view(s) of the right wrist . COMPARISON: None FINDINGS: Normal bony alignment. No acute fracture seen. Mild radiocarpal joint osteoarthritis. No gross soft tissue abnormality. IMPRESSION: No acute osseous abnormality. THIS IS AN ELECTRONICALLY VERIFIED FINAL REPORT 03/28/2023 5:53 PM - Electronically signed by Carlitos Martinez M.D. AG: N[facility] Report ID: [id number] Reading Location: [id number] De Quervain's injection: R extensor compartment 1 Performed by: Alejandra Mcclellan MD Authorized by: Alejandra Mcclellan MD De Quervain's Injection: Consent Given by: Patient Site marked: the procedure site was marked Timeout: prior to procedure the correct patient, procedure, and site was verified Verbal consent obtained?: Yes Written consent obtained?: Yes Supporting Documentation: Indications: Pain Procedure Details: Condition: de Quervain's Site: R extensor compartment 1 Prep: patient was prepped using a clean technique Needle gauge: 25G. Approach: Radial Medications: 1 mL lidocaine 20 mg/mL (2 %); 20 mg triamcinolone 40 mg/mL Patient tolerance: Patient tolerated the procedure well with no immediate complications Verbal and written consent was obtained from the patient. Consent included possibility of bleeding,infection, hypoglycemia, hyperglycemia, increased pain, steroid flare, and permanent hypopigmentation and fat atrophy. Sterile prep. I injected the patient's RIGHT first dorsal compartment after aspiration without withdraw with 0.5 ml of triamcinolone 40 mg/ml and 1 ml of 2% lidocaine. The patient tolerated the procedure well. There were no complications. Reexamination after the injection demonstrated decreased pain with Shashank's test and decreased pain with palpation over the first dorsal compartment and second and third compartments. Assessment/Plan Chelsea was seen today for pain. Diagnoses and all orders for this visit: De Quervain's tenosynovitis, right - Ambulatory referral order to Physical Therapy -; Future - De Quervain's injection: R extensor compartment 1 - lidocaine (XYLOCAINE) 20 mg/mL (2 %) preservative free injection 1 mL - triamcinolone (KENALOG) 40 mg/mL injection 20 mg Plan Patient has signs of probable de Quervain tenosynovitis. I am not completely sure that this was fully provoked by the IV unless they potentially had a degree of infiltration or irritation to the tendon sheath if they accidentally went significantly to deep. It is possible that the de Quervain tenosynovitis could be due to degree of overuse given her occupation and other activities she does. Regardless of potential cause her symptoms cleared do indicate a degree of de Quervain tenosynovitis. Discussed treatment with her. Patient is now complaining of symptoms that have been lasting for over 2+months so recommended trial of targeted corticosteroid injection within the 1st dorsal compartment.Risks and benefits of injection were discussed. We included the risk of possible hyperpigmentation of the overlying skin that can develop over the next several months following the injection given the superficial nature. After discussion of risks and benefits patient elected to proceed with corticosteroid injection. Injection was done. On re-evaluation following injection patient noted improvement in pain. Post-injection care was discussed. Patient was recommended use of the thumb spica splint for least the next 2 weeks to help the areas settle down. I advised patient that we did have thumb spica wrist splint that we could fit her with an office or she can go get a smaller thumb spica splint from the store. She elected to go get her own splint but I did discuss the type of splint I wantedher to get. Given the chronic nature of this for several months I think she likely will need a course of physical therapy in addition to the corticosteroid and period of relative rest. Given this, physical therapy referral was provided. Additionally provided her a printout with some start her home exercise program. We will plan to re-evaluate her in 8 weeks. Questions answered. Patient agrees with plan An After Visit Summary was printed and given to the patient. Follow up 8 weeks My total encounter time on 04/24/2023 was 32 minutes which was spent in the activities documented inthe note. This includes time spent prior to the visit and after the visit in direct care of the patient. This time does not include time spent in any separately reportable services. Alejandra Mcclellan MD documented in this encounter Procedure Notes * Alejandra Mcclellan MD - 04/24/2023 9:00 AM CDTAssociated Order(s): De Quervain's injection: R extensor compartment 1 Post-Procedure Diagnose(s): De Quervain's tenosynovitis, right De Quervain's injection: R extensor compartment 1 Performed by: Alejandra Mcclellan MD Authorized by: Alejandra Mcclellan MD De Quervain's Injection: Consent Given by: Patient Site marked: the procedure site was marked Timeout: prior to procedure the correct patient, procedure, and site was verified Verbal consent obtained?: Yes Written consent obtained?: Yes Supporting Documentation: Indications: Pain Procedure Details: Condition: de Quervain's Site: R extensor compartment 1 Prep: patient was prepped using a clean technique Needle gauge: 25G. Approach: Radial Medications: 1 mL lidocaine 20 mg/mL (2 %); 20 mg triamcinolone 40 mg/mL Patient tolerance: Patient tolerated the procedure well with no immediate complications Verbal and written consent was obtained from the patient. Consent included possibility of bleeding,infection, hypoglycemia, hyperglycemia, increased pain, steroid flare, and permanent hypopigmentation and fat atrophy. Sterile prep. I injected the patient's RIGHT first dorsal compartment after aspiration without withdraw with 0.5 ml of triamcinolone 40 mg/ml and 1 ml of 2% lidocaine. The patient tolerated the procedure well. There were no complications. Reexamination after the injection demonstrated decreased pain with Shashank's test and decreased pain with palpation over the first dorsal compartment and second and third compartments. documented in this encounter Plan of Treatment Not on file documented as of this encounter Procedures Procedure Name Priority Date/Time Associated Diagnosis Comments UT INJECTION 1 TENDON SHEATH/LIGAMENT APONEUROSIS Routine 04/24/2023 9:00 AM CDT De Quervain's tenosynovitis, right documented in this encounter Results * UT INJECTION 1 TENDON SHEATH/LIGAMENT APONEUROSIS (04/24/2023 9:00 AM CDT) Narrative Alejandra Mcclellan MD - 04/24/2023 9:00 AM CDT Alejandra Mcclellan MD ? 04/24/2023 ??1:11 PM De Quervain's injection: R extensor compartment 1 Performed by: Alejandra Mcclellan MD Authorized by: Alejandra Mcclellan MD ?? De Quervain's Injection: ??Consent Given by: ??Patient ??Site marked: the procedure site was marked ?Timeout: prior to procedure the correct patient, procedure, and site was verified ?Verbal consent obtained?: Yes ?Written consent obtained?: Yes ?? Supporting Documentation: ??Indications: ??Pain Procedure Details: ??Condition: de Quervain's ?Site: ??R extensor compartment 1 ??Prep: patient was prepped using a clean technique ?Needle gauge: 25G. ??Approach: ??Radial ??Medications: ??1 mL lidocaine 20 mg/mL (2 %); 20 mg triamcinolone 40 mg/mL ??Patient tolerance: ??Patient tolerated the procedure well with no immediate complications ?? Verbal and written consent was obtained from the patient. Consent included possibility of bleeding, infection, hypoglycemia, hyperglycemia, increased pain, steroid flare, and permanent hypopigmentation and fat atrophy. Sterile prep. I injected the patient's RIGHT first dorsal compartment after aspiration without withdraw with 0.5 ml of triamcinolone 40 mg/ml and 1 ml of 2% lidocaine. The patient tolerated the procedure well. There were no complications. Reexamination after the injection demonstrated decreased pain with Shashank's test and decreased pain with palpation over the first dorsal compartment and second and third compartments. us Alejandra Mcclellan MD [facility] Final Result documented in this encounter Visit Diagnoses Diagnosis De Quervain's tenosynovitis, right- Primary documented in this encounter Administered Medications Inactive Administered Medications - up to 3 most recent administrations Medication Order MAR Action Action Date Dose Rate Site lidocaine (XYLOCAINE) 20 mg/mL (2 %) preservative free injection 1 mL 1 mL, One-Time Injection, Starting on Sat04/24/23 at 1311, For 1 doseIndications:De Quervain's tenosynovitis, right Given 04/24/2023 1:11 PM CDT 1 mL Right Wrist triamcinolone (KENALOG) 40 mg/mL injection 20 mg 20 mg, intra-articular, One-Time Injection, Starting on Sat04/24/23 at 1311, For 1 doseIndications:De Quervain's tenosynovitis, right Given 04/24/2023 1:11 PM CDT 20 mg Right Wrist documented in this encounter Discontinued Medications Medication Sig Discontinue Reason Start Date End Da te acetaminophen (TYLENOL) 500 mg tablet Take 1,000 mg by mouth every 6 (six) hours as needed for pain 04/24/2023 traMADol-acetaminophe n (ULTRACET) 37.5-325 mg per tablet Take 1 tablet by mouth every 8 (eight) hours as needed for pain P.r.n. pain not relieved by Medrol Dosepak. Collaborating physician Charlie Giron MD 03/28/2023 04/24/2023 documented as of this encounter Historical Medications * This list may reflect changes made after this encounter. ibuprofen 200 mg tab/cap Take 1 tablet/capsul e (200 mg total) by mouth every 6 (six) hours as needed for pain added in this encounter Care Teams Well Driller Helper Relationship Specialty Start Date End Date Audelia Kim MD [address] [place] [address] [place] [id number] PCP - asset protection professional Obstetrics and Gynecology 11/30/22 Johnny Mcgill PA [address] [place] [address] PCP - General Family Practice 11/30/22 Michael Otoole MD Referring Physician Otolaryngology 06/15/21 documented as of this encounter
--- OUTSIDE RECORDS SUMMARY | 2024-10-25 08:00 | XMS_ITS | Referral Summary ---
Author Organization [facility] Address [address] [place] [address] Care Team Providers Care Tuber Helper Name Role Phone Michael Otoole MD Unavailable [phone] Audelia Kim MD Unavailable [phone] Johnny Mcgill Primary Care Provider Encounters Date Type Department Care Team Description 10/05/2024 4:32 PM DIRECTOR OF PHYSICIAN PRACTICES - 10/05/2024 11:59 PM DIRECTOR OF PHYSICIAN PRACTICES Hospital Encounter [address] [address] Encounter for screening for malignant neoplasm of respiratory organs; Nicotine dependence, cigarettes, uncomplicated Discharge Disposition: Discharge to home or self care 10/02/[address] [address] Zina Rossi RN 08/06/2024 9:38 AM CDT - 08/06/2024 11:59 PM CDT Hospital Encounter [address] [address] Lumbar pain Discharge Disposition: Discharge to home or self care from Last 3 Months Allergies No known active allergies Medications ibuprofen 200 mg tab/cap Take 1 tablet/caps ule (200 mg total) by mouth every 6 (six) hours as needed for pain Active Active Problems Problem Noted Date Diagnosed Date De Quervain's tenosynovitis, right 03/28/2023 Family history of colon cancer 11/22/2020 Overview (11/22/2020): Added automatically from request for surgery [id number] Personal history of colonic polyps 11/22/2020 Overview (11/22/2020): Added automatically from request for surgery [id number] Encounter for screening colonoscopy 11/22/2020 Overview (11/22/2020): Added automatically from request for surgery [id number] Immunizations Name Administration Dates Next Due Influenza, Trivalent, Preservative Free, Intramu scular 08/10/2016 Social History Tobacco Use Types Packs/Day Years [...] file Legal Sex Female 11:50 PM DIRECTOR OF PHYSICIAN PRACTICES Gender Identity Not on file Sexual Orientation Not on file Last Filed Vital Signs Vital Sign Reading Time Taken Comments Blood Pressure 136/83 04/24/2023 8:41 AM CDT Pulse 91 04/24/2023 8:41 AM CDT Temperature 36.6 ??C (97.9 ??F) 03/28/2023 4:35 PM CD T Respiratory Rate 18 03/28/2023 4:35 PM CDT Oxygen Saturation 98% 03/28/2023 4:35 PM CDT Inhaled Oxygen Concentration - - Weight 81.6 kg (180 lb) 10/05/2024 4:44 PM DIRECTOR OF PHYSICIAN PRACTICES Height 167.6 cm (5' 6 ) 10/05/2024 4:44 PM DIRECTOR OF PHYSICIAN PRACTICES Body Mass Index 29.05 10/05/2024 4:44 PM DIRECTOR OF PHYSICIAN PRACTICES Plan of Treatment Not on file Procedures Procedure Name Priority Date/Time Associated Diagnosis Comments CT LUNG CANCER SCREENING Schedule Routine, Read Routine (OP Routine) 10/05/2024 4:44 PM DIRECTOR OF PHYSICIAN PRACTICES Encounter for screening for malignant neoplasm of respiratory organs Nicotine dependence, cigarettes, uncomplicated XR SACROILIAC JOINTS 3 OR MORE VIEWS Schedule Routine, Read Routine (OP Routine) 08/06/2024 9:47 AM CDT Lumbar pain COLONOSCOPY 12/19/2022 7:40 AM DIRECTOR OF PHYSICIAN PRACTICES DIAGNOSTIC MAMMOGRAM BILATERAL W ABRAHAM Schedule Routine, Read Routine (OP Routine) 2022 8:28 AM DIRECTOR OF PHYSICIAN PRACTICES Mastodynia from Last 3 Months or Most Recently Relevant to Health Maintenance Results * CT Lung Cancer Screening (10/05/2024 4:44 PM DIRECTOR OF PHYSICIAN PRACTICES) Anatomical Region Laterality Modality Chest N/A Computed Tomogra phy 10/12/2024 9:00 AM DIRECTOR OF PHYSICIAN PRACTICES Narrative 10/12/2024 9:14 AM DIRECTOR OF PHYSICIAN PRACTICES EXAM DESCRIPTION: ?? CT LUNG CANCER SCREENING [...] AM T: ??10/12/2024 9:14 AM Report ID: [id number] Reading Location: ??[id number] Procedure Note Etelvina Terrazas MD - 10/12/2024 [...] Etelvina Matias M.D. FT: FT Report ID: [id number] Reading Location: [place] [address] Audelia Kim MD IMG CT PROCEDURES Final [...] Electronically signed by ??Addy Jung M.D. TH: TH D: ??08/09/2024 8:19 AM T: ??08/09/2024 8:19 AM Report ID: [id number] Reading Location: ??[id number] Procedure Note Addy Jung MD - 08/09/2024 [...] Electronically signed by Addy Jung M.D. TH: TH Report ID: [id number] Reading Location: [id number] [place] Audelia Kim MD IMG XR PROCEDURES Final Resul t * COLONOSCOPY (12/19/2022 7:40 AM DIRECTOR OF PHYSICIAN PRACTICES) Anatomical Region Laterality Modality Other Narrative Procedure Note Scooby Saez MD - 12/19/2022 7:40 AM CST [facility] Patient Name: Chelsea Jon Procedure Date: 12/19/2022 7:40 AM Date of : 1965 Admit Type: Outpatient Age: 57 Gender: Female Attending MD: Scooby Saez M.D. Room: [facility] ENDOSCOPY ROOM 1 Note Status: Finalized Patient [...] under direct vision. The Pediatric Colonoscope [id number] was introducedthrough the anus and advanced to [...] 7:40 AM Procedure Code(s): --- Professional --- 31298, Colonoscopy, flexible; diagnostic, including collection of specimen(s) by brushing or washing, when performed (separateprocedure) Diagnosis Code(s): --- Professional --- Z86.010, Personal history of colonic polyps K64.8, Other hemorrhoids CPT copyright 2020 [employer]. All rights reserved. The codes documented in this report are preliminary and upon link trainer reviewmay be revised to meet current compliance requirements. Recognized by the [employer] for promoting quality in endoscopy Scooby Saez MD ENDOSCOPY PROCEDURES Final Result * Diagnostic Mammogram Bilateral W Abraham (2022 8:28 AM DIRECTOR OF PHYSICIAN PRACTICES) Anatomical Region Laterality Modality Breast Bilateral Mammography 2022 10:0 5 AM DIRECTOR OF PHYSICIAN PRACTICES Impressions 2022 10:05 AM DIRECTOR OF PHYSICIAN PRACTICES 1. ??No findings identified in the left [...] signed by: VERONIKA Ackerman 2022 10:05 AM DIRECTOR OF PHYSICIAN PRACTICES EXAMINATION: DIAGNOSTIC MAMMOGRAM BILATERAL W ABRAHAM, US [...] Most Recently Relevant to Health Maintenance Insurance [facility] CMR Advance Directives For more information, please contact: [phone] * Full Code (Latest Code Status on File) Date Activated Date Inactivated Comments 12/19/2022 7:35 AM 12/19/2022 2:06 PM * Full Code Date Activated Date Inactivated Comments 12/19/2022 7:35 AM 12/19/2022 7:35 AM * Full Code Date Activated Date Inactivated Comments 12/13/2017 9:04 AM 12/13/2017 1:19 PM Care Teams Tuber Helper Relationship Specialty Start Date End Date Audelia Kim MD [address] [place] [address] PCP - kitchen steward Obstetrics and Gynecology 11/30/22 Johnny Mcgill PA [address] [place] [address] PCP - General Family Practice 11/30/22 Michael Otoole MD Referring Physician Otolaryngology 06/15/21
--- OUTSIDE RECORDS SUMMARY | 2024-10-25 08:00 | XMS_ITS | Encounter Summary ---
Author Organization [facility] Healthcare Address [address] [place] [address] Care Team Providers Care Production Lead Name Role Phone Michael Otoole MD Unavailable [phone] Olegario Kim MD Unavailable [phone] Johnny Mcgill Primary Care Provider [phone] Reason for Referral * Diagnostic Imaging (Routine) - Closed Specialty Diagnoses / Procedures Referred By Panfilo ventura Referred To Contact Diagnoses Mastodynia Procedures Diagnostic Mammogram Bilateral W Olegario Ross MD [address] [place] [address] Phone: tel: fax: [address] [phone] Referral ID Status Reason Start Date Expiration Date Visits Re quested Visits Authorized [id number] Closed 11/01/2022 12/01/2023 1 1 SSIONS MANAGER RN Reason for Visit * Diagnostic Imaging (Routine) - Closed Specialty Diagnoses / Procedures Referred By Panfilo ventura Referred To Contact Diagnoses Mastodynia Procedures Diagnostic Mammogram Bilateral W Olegario Ross MD [address] [place] [address] Phone: tel: fax: [address] [phone] Referral ID Status Reason Start Date Expiration Date Visits Re quested Visits Authorized [id number] Closed 11/01/2022 12/01/2023 1 1 Encounter Details Date Type Department Care Team (Latest Contact Info) Description 2022 8:07 AM ADMISSIONS MANAGER RN - 2022 11:59 PM ADMISSIONS MANAGER RN Hospital Encounter [facility] [address] [place] [address] Mastodynia Discharge Disposition: Discharge to home or [...] on file Legal Sex Female 11:50 PM ADMISSIONS MANAGER RN Gender Identity Not on file Sexual Orientation [...] Procedure Name Priority Date/Time Associated Diagnosis Comments DIAGNOSTIC MAMMOGRAM BILATERAL W ABRAHAM Schedule Routine, Read Routine (OP Routine) 2022 8:28 AM ADMISSIONS MANAGER RN Mastodynia documented in this encounter Results * Diagnostic Mammogram Bilateral W Abraham (2022 8:28 AM ADMISSIONS MANAGER RN) Anatomical Region Laterality Modality Breast Bilateral Mammography 2022 10:0 5 AM ADMISSIONS MANAGER RN Impressions 2022 10:05 AM ADMISSIONS MANAGER RN 1. ??No findings identified in the left [...] signed by: VERONIKA Ackerman 2022 10:05 AM ADMISSIONS MANAGER RN EXAMINATION: DIAGNOSTIC MAMMOGRAM BILATERAL W ABRAHAM, US [...] solid or cystic masses. Olegario Kim MD IM MAMMO PROCEDURES Final Re sult documented in this encounter Visit Diagnoses Diagnosis Mastodynia documented in this encounter Care Teams Production Lead Relationship Specialty Start Date End Date Olegario Kim MD [address] [place] [address] PCP - supervisor glycerin Obstetrics and Gynecology 11/30/22 Johnny Mcgill PA [address] [place] [address] PCP - General Family Practice 11/30/22 Michael Otoole MD Referring Physician Otolaryngology 06/15/21 documented as of this encounter
--- OUTSIDE RECORDS SUMMARY | 2024-10-25 08:00 | XMS_ITS | Encounter Summary ---
Author Organization [facility] Address [address] [place] [address] Care Team Providers Care Ham Rolling Machine Operator Name Role Phone Michael Otoole MD Unavailable [phone] Audelia Kim MD Unavailable [phone] Johnny Mcgill Primary Care Provider [phone] Reason for Visit * Auth/Cert Specialty Diagnoses / Procedures Referred By Contac t Referred To Contact Diagnoses Personal history of colonic polyps Family history of colon cancer Personal history of colonic polyps [Z86.010] Family history of colon cancer [Z80.0] Procedures MS COLONOSCOPY FLX DX W/COLLJ SPEC WHEN PFRMD COLONOSCOPY Referral ID Status Reason Start Date Expiration Date Visits Re quested Visits Authorized [id number] 1 1 Encounter Details Date Type Department Care Team (Late st Contact Info) Description 12/19/2022 9:04 AM SWEEP MOLDER Anesthesia Event [facility] [address] [place] [address] Cayden Godoy MD [address] [place] [address] Scott Morley MD [address] [place] [address] Anesthesia Record Procedure Summary Procedure Name Responsible Anesthesiologist Anesthesia Start Time Anesthesia Stop Time COLONOSCOPY Cayden Godoy MD 12/19/22 0904 12/19/22 0916 Events Date Time Event Comment 12/19/2022 0752 0901 In Room 0904 An Start 0904 An Start Data 0906 Start Supplemental O2 0906 Patient Positioned Laterally 0906 An Induction The patient was reevaluated immediately before moderate or deep sedation use and before anesthesia induction. 0906 Anesthesia Ready 0907 Proc Start 0916 Proc Fin 0916 an stop data 0916 Handoff to RN I completed my handoff [...] disposition at the time of handoff: PACU 0916 An Stop 0919 Out of Room Meds Name Total lidocaine (cardiac) syringe 2 % 80 mg propofol 180 mg sodium chloride 0.9% infusion 400 mL * Agents Name O2 * Blood No blood administrations on file. Lines, Drains, and Airways Type Details Placement Removal Peripheral IV Placement Date: 11/29 12/20; Placement Time: 075; Catheter Size: 22 G; Orientation: Right; Location: Wrist; Site Prep: Alcohol; Insertion Attempts: 1; Removal Date: 12/19/22; Removal Time: 95512/19/22 0756 by Sree Guevara RN 12/19/22 0956 by Sree Guevara RN documented in this encounter Social History [...] on file Legal Sex Female 11:50 PM SWEEP MOLDER Gender Identity Not on file Sexual Orientation Not on file documented as of this encounter OR Notes * Anesthesia Postprocedure Evaluation - Cayden Godoy MD - 12/19/2022 10:00 AM CST Patient: Chelsea Salazar Procedure Summary Date: 12/19/22 Room / Location: REPLACED BY [facility] END[facility]COPY ROOM 1 / REPLACED BY [facility] Anesthesia Start: 903 Anesthesia Stop: 915 Procedure: COLONOSCOPY Diagnosis: Personal history of colonic polyps Family history of colon cancer (Personal history of colonic polyps [Z86.010]) (Family history of colon cancer [Z80.0]) Providers: Scooby Saez MD Responsible Provider: Cayden Godoy MD Anesthesia Type: MAC ASA Status: 1 Anesthesia Type: MAC Last vitals BP 115/67 (BP Location: Left arm, Patient Position: Lying) Pulse 75 Temp 36.7 ??C (98 ??F) (Temporal) Resp 18 SpO2 100% Anesthesia Post Evaluation Patient location during evaluation: PACU Patient participation: complete - patient participated Level of consciousness: fully awake Pain management: adequate Airway patency: adequate Evidence of recall: no Cardiovascular status: acceptable Respiratory status: acceptable Hydration status: acceptable Pt is: normothermic Nausea/Vomiting status: none No notable events documented. P MOLDER * Anesthesia Preprocedure Evaluation - Scott Morley MD - 12/18/2022 1:19 PM CST Images from the original note were not included. Anesthesia Evaluation Chelsea Salazar is a 57 y.o. female Procedure(s): COLONOSCOPY Pre-Op Diagnosis Codes: * Personal history of colonic polyps [Z86.010] * Family history of colon cancer [Z80.0] HISTORY Past Medical History Information obtained from: chart. Neurological Neuro/Psych system: negative Cardiovascular Cardiac system: negative Respiratory + Current smoker - Counseled to abstain from smoking the day of surgery. Patient refrained from smoking on day of surgery. Respiratory system: negative Endocrine / Other Endocrine/Other system: negative Patient Active Problem List Diagnosis ??? Family history of colon cancer ??? Personal history of colonic polyps ??? Encounter for screening colonoscopy Past Medical History: Diagnosis Date ??? Colon polyp ??? Fibrocystic breast ??? Smoking Past Surgical History: Procedure Laterality Date ??? COLONOSCOPY 11/2015 ??? COLONOSCOPY 12/13/2017 ??? ECTOPIC SURGERY 1990 tubal ??? TUBAL LIGATION 1990 OB History 3 Para 3 Term 3 AB Living SAB IAB Ectopic Multiple Live Births No Active Allergies Taking? Last Dose Start Date End Date Provider acetaminophen (TYLENOL) 500 mg tablet -- -- -- Provider, MD Kapil No current facility-administered medications for this encounter. Current Outpatient Medications: ??? acetaminophen (TYLENOL) 500 mg tablet Social History Tobacco Use Smoking Status Former ??? Packs/day: 0.50 ??? Years: 25.00 ??? Pack years: 12.50 ??? Types: Cigarettes ??? Start date: 1984 ??? Quit date: 1993 ??? Years since quittin.1 Smokeless Tobacco Never Alcohol Use: Not on file Substance and Sexual Activity Drug Use No Family History Problem Relation Age of Onset ??? Other Other Family history of Cancer, cervical; ??? Diabetes Other Family history of Diabetes mellitus; ??? Anesthesia problems Neg Hx There were no vitals filed for this visit. PT: No results found for requested labs [...] for requested labs within last 720 hours. DOS Physical Exam Medical history, medications, and allergies reviewed. Attestation: This PAT evaluation 12/19/2022. Airway Exam: Mallampati: I Cervical ROM: FROM Cardiovascular Exam: Rate: regular Rhythm: regular Pulmonary Exam: LCTA Dental Exam: Appears intact and implants Anesthesia Plan ASA 1 My patient is approved for the Anesthesia Controlled Medication protocol when under care of a WINDOW TINTER Planned anesthesia: MAC Induction: Induction: intravenous. Postoperative Plan: Patient's planned disposition post procedure is Outpatient. Informed Consent: Discussed plan with WINDOW TINTER. Anesthesia plan and risks discussed with patient. Consent and Attending signature: I and/or my designee have discussed the anesthesia plan, benefits, possible alternatives, parental presence at time of induction (if indicated), and clinically relevant risks that may include dental injury, unintentional awareness, and/or other complications. The patient and/or parent/legal guardian understand, and agree to proceed. All questions answered. P MOLDER P MOLDER documented in this encounter Plan of Treatment Not on file documented as of this encounter Visit Diagnoses Not on filedocumented in this encounter Administered Medications Inactive Administered Medications - up to 3 most recent administrations Medication Order MAR Action Action Date Dose Rate Site lidocaine (XYLOCAINE) 20 mg/mL (2 %) preservative free injection intravenous, As needed, Starting on Sat12/19/22 at 0906, Anesthesia Intra-op Given 12/19/2022 9:06 AM SWEEP MOLDER 80 mg propofoL (DIPRIVAN) 10 mg/mL IV intravenous, As needed, Starting on Sat12/19/22 at 0906, Anesthesia Intra-op Given 12/19/2022 9:13 AM SWEEP MOLDER 30 mg Given 12/19/2022 9:10 AM SWEEP MOLDER 30 mg Given 12/19/2022 9:09 AM SWEEP MOLDER 30 mg sodium chloride 0.9% infusion 30 mL/hr, intravenous, Continuous, Starting on Sat12/19/22 at 0815, Pre-Procedure (GI) Restarted 12/19/2022 9:04 AM SWEEP MOLDER New Bag 12/19/2022 7:57 AM SWEEP MOLDER 30 mL/hr 30 mL/hr documented in this encounter Care Teams Ham Rolling Machine Operator Relationship Specialty Start Date End Date Audelia Kim MD [address] [place] [address] PCP - master barber Obstetrics and Gynecology 11/30/22 Johnny Mcgill PA [address] [place] [address] PCP - General Family Practice 11/30/22 Micahel Otoole MD Referring Physician Otolaryngology 06/15/21 documented as of this encounter
--- OUTSIDE RECORDS SUMMARY | 2024-10-25 08:00 | XMS_ITS | Encounter Summary ---
Author Organization [facility] Healthcare Address [address] [place] [address] Care Team Providers Care Generator Operator Name Role Phone Michael Otoole MD Unavailable [phone] Audelia Kim MD Unavailable [phone] Johnny Mcgill Primary Care Provider [phone] Encounter Details Date Type Department Care Team (Late st Contact Info) Description 03/27/2023 Telephone [facility] [address] [place] [address] Karli West RT Social History Tobacco Use [...] on file Legal Sex Female 11:50 PM BOBBIN DUMPER Gender Identity Not on file Sexual Orientation Not on file documented as of this encounter Miscellaneous Notes * Telephone Encounter - Karli West RT - 03/27/2023 10:06 AM CDT Conf appt @ 10:06 documented in this encounter Plan of Treatment Not on file documented as of this encounter Visit Diagnoses Not on filedocumented in this encounter Care Teams Generator Operator Relationship Specialty Start Date End Date Audelia Kim MD [address] [place] [address] PCP - candy department manager Obstetrics and Gynecology 11/30/22 Johnny Mcgill PA [address] [place] [address] PCP - General Family Practice 11/30/22 Michael Otoole MD Referring Physician Otolaryngology 06/15/21 documented as of this encounter
--- OUTSIDE RECORDS SUMMARY | 2024-10-25 08:00 | XMS_ITS | Encounter Summary ---
Author Organization [facility] Address [address] [place] [address] Care Team Providers Care Insurance Claims Representative Name Role Phone Michael Otoole MD Unavailable [phone] Audelia Kim MD Unavailable [phone] Johnny Mcgill Primary Care Provider [phone] Reason for Visit * Auth/Cert Specialty Diagnoses / Procedures Referred By Contac t Referred To Contact Diagnoses Personal history of colonic polyps Family history of colon cancer Personal history of colonic polyps [Z86.010] Family history of colon cancer [Z80.0] Procedures ID COLONOSCOPY FLX DX W/COLLJ SPEC WHEN PFRMD COLONOSCOPY Referral ID Status Reason Start Date Expiration Date Visits Re quested Visits Authorized [id number] 1 1 Encounter Details Date Type Department Care Team (Late st Contact Info) Description 12/19/2022 8:30 AM POOL MANAGER - 12/19/2022 9:00 AM POOL MANAGER Surgery [facility] Center [address] [place] [address] Scooby Saez MD [address] [place] [address] COLONOSCOPY Surgery Details Date/Time Status Location OR Service Patient Class Case Class Case Type Trauma Case? 12/19/2022 8:30 AM Posted [facility] END[facility]COPY GI 01 Gastroenterology Outpatient Elective Panel 1 Procedure LRB Anes Op Region Wound Class Comments COLONOSCOPY N/A Monitor Anesthesia Care Surgeon Surgeon Role Service Panel Scooby Saez [...] on file Legal Sex Female 11:50 PM POOL MANAGER Gender Identity Not on file Sexual Orientation Not on file documented as of this encounter Last Filed Vital Signs Vital Sign Reading Time Taken Comments Blood Pressure 123/71 12/19/2022 7:42 AM POOL MANAGER Pulse 87 12/19/2022 7:42 AM POOL MANAGER Temperature 37.2 ??C (98.9 ??F) 12/19/2022 7:42 AM CS T Respiratory Rate 16 12/19/2022 7:42 AM POOL MANAGER Oxygen Saturation 99% 12/19/2022 7:42 AM POOL MANAGER Inhaled Oxygen Concentration - - Weight 82.1 kg (181 lb) 12/19/2022 7:42 AM POOL MANAGER Height 170.2 cm (5' 7 ) 12/19/2022 7:42 AM POOL MANAGER Body Mass Index 28.35 12/19/2022 7:42 AM POOL MANAGER documented in this encounter Medications at Time [...] cancer GI PLAN/RECOMMENDATIONS: colonoscopy Scooby Saez MD MANAGER documented in this encounter Procedure Notes * Scooby Saez MD - 12/19/2022 7:40 AM CSTAssociated Order(s): COLONOSCOPY [facility] Patient Name: Chelsea Jon Procedure Date: 12/19/2022 7:40 AM Date of : 1965 Admit Type: Outpatient Age: 57 Gender: Female Attending MD: Scooby Saez M.D. Room: [facility] ENDOSCOPY ROOM 1 Note Status: Finalized Patient [...] under direct vision. The Pediatric Colonoscope PCF-H190L [id number] was introduced through the anus and advanced [...] 7:40 AM Procedure Code(s): --- Professional --- 98266, Colonoscopy, flexible; diagnostic, including collection of specimen(s) by brushing or washing, when performed (separate procedure) Diagnosis Code(s): --- Professional --- Z86.010, Personal history of colonic polyps K64.8, Other hemorrhoids CPT copyright 2020 [employer]. All rights reserved. The codes documented in this report are preliminary and upon vice president review may be revised to meet current compliance requirements. Recognized by the [employer] for promoting quality in endoscopy MANAGER documented in this encounter Miscellaneous Notes * Perioperative Nursing Note - Sree Guevara RN - 12/19/2022 9:[address] Saez spoke with the patient about the procedure. Patient is to repeat a colonoscopy in 5 years. MANAGER documented in this encounter Plan of Treatment Not on file documented as of this encounter Procedures Procedure Name Priority Date/Time Associated Diagnosis Comments COLONOSCOPY 12/19/2022 8:56 AM POOL MANAGER Personal history of colonic polyps Family history of colon cancer COLONOSCOPY 12/19/2022 7:40 AM POOL MANAGER documented in this encounter Results * COLONOSCOPY (12/19/2022 7:40 AM POOL MANAGER) Anatomical Region Laterality Modality Other Narrative Procedure Note Scooby Saez MD - 12/19/2022 7:[address] [facility] Center Patient Name: Chelsea Jon Procedure Date: 12/19/2022 7:40 AM Date of : 1965 Admit Type: Outpatient Age: 57 Gender: Female Attending MD: Scooby Saez M.D. Room: [facility] ENDOSCOPY ROOM 1 Note Status: Finalized Patient [...] under direct vision. The Pediatric Colonoscope PCF-H190L [id number] was introducedthrough the anus and advanced to [...] 7:40 AM Procedure Code(s): --- Professional --- 23966, Colonoscopy, flexible; diagnostic, including collection of specimen(s) by brushing or washing, when performed (separateprocedure) Diagnosis Code(s): --- Professional --- Z86.010, Personal history of colonic polyps K64.8, Other hemorrhoids CPT copyright 2020 [employer]. All rights reserved. The codes documented in this report are preliminary and upon vice president reviewmay be revised to meet current compliance requirements. Recognized by the [employer] for promoting quality in endoscopy Scooby Saez MD ENDOSCOPY PROCEDURES Final Result documented in this encounter Visit Diagnoses Diagnosis Personal history of colonic polyps Family history of colon cancer Family history of malignant neoplasm of gastrointestinal tract Personal history of colonic polyps Family history [...] 0815, Pre-Procedure (GI) Restarted 12/19/2022 9:04 AM POOL MANAGER New Bag 12/19/2022 7:57 AM POOL MANAGER 30 mL/hr 30 mL/hr sodium chloride 0.9% infusion 125 mL/hr, intravenous, Continuous, Starting on Sat12/19/22 at 0815, Recovery (GI) documented in this encounter Active and Recently Administered Medications Times are shown in POOL MANAGER. Continuous Medication Order 12/17/2022 12/18/2022 12/19/2022 sodium chloride 0.9% infusion 30 mL/hr, intravenous, Continuous, Starting on Sat12/19/22 at 0815, Pre-Procedure (GI) 0757 (New Bag - Prov ider: Sree Guevara RN)0903 (Paused - Provider: Alejandra Ravi CRNA - Comment: Switch to gravity)0904 (Restarted - Provider: Alejandra Ravi CRNA)0916 (Anesthesia Volume Adjustment - Provider: Alejandra Ravi, MATTEO)1406 (Due: Stopped) sodium chloride 0.9% infusion 125 [...] 12/19/2022 documented in this encounter Care Teams Insurance Claims Representative Relationship Specialty Start Date End Date Audelia Kim MD [address] [place] [address] PCP - building associate Obstetrics and Gynecology 11/30/22 Johnny Mcgill PA [address] [place] [address] PCP - General Family Practice 11/30/22 Michael Otoole MD Referring Physician Otolaryngology 06/15/21 documented as of this encounter
--- OUTSIDE RECORDS SUMMARY | 2024-10-25 08:00 | XMS_ITS | Encounter Summary ---
Author Organization [facility] Healthcare Address [address] [place] [address] Care Team Providers Care Electrical Instrumentation Technician Name Role Phone Michael Otoole MD Unavailable [phone] Audelia Kim MD Unavailable [phone] Johnny Mcgill Primary Care Provider [phone] Encounter Details Date Type Department Care Team (Late st Contact Info) Description 10/02/2024 Telephone [facility] Center [address] [place] [address] Zina Rossi RN Social History Tobacco Use [...] on file Legal Sex Female 11:50 PM CHECK INSPECTOR Gender Identity Not on file Sexual Orientation Not on file documented as of this encounter Miscellaneous Notes * Telephone Encounter - Zina Rossi RN - 10/02/2024 2:00 PM CHECK INSPECTOR Reviewed history with patient. Patient is aware of date/time/location of CT LCS. K INSPECTOR documented in this encounter Plan of Treatment Not on file documented as of this encounter Visit Diagnoses Not on filedocumented in this encounter Care Teams Electrical Instrumentation Technician Relationship Specialty Start Date End Date Audelia Kim MD [address] [place] [address] PCP - sas programmer analyst Obstetrics and Gynecology 11/30/22 Johnny Mcgill PA [address] [place] [address] PCP - General Family Practice 11/30/22 Michael Otoole MD Referring Physician Otolaryngology 06/15/21 documented as of this encounter
--- OUTSIDE RECORDS SUMMARY | 2024-10-25 08:00 | XMS_ITS | Encounter Summary ---
Author Organization [facility] Address [address] [place] [address] Care Team Providers Care Wastewater Engineer Name Role Phone Michael Otoole MD Unavailable [phone] Audelia Kim MD Unavailable [phone] Johnny Mcgill Primary Care Provider [phone] Encounter Details Date Type Department Care Team (Late st Contact Info) Description 04/24/2023 Orders Only [facility] Sports Medicine and Primary Care at [address] [place] [address] Alejandra Foster MD [address] [place] [address] [address] [place] [address] De Quervain's tenosynovitis, right (Primary Dx) Social History Tobacco [...] on file Legal Sex Female 11:50 PM FEED MILLER Gender Identity Not on file Sexual Orientation Not on file documented as of this encounter Plan of Treatment Not on file documented as of this encounter Visit Diagnoses Diagnosis De Quervain's tenosynovitis, right- Primary documented in this encounter Care Teams Wastewater Engineer Relationship Specialty Start Date End Date Audelia Kim MD [address] [place] [address] PCP - agricultural equipment sales engineer Obstetrics and Gynecology 11/30/22 Johnny Mcgill PA [address] [place] [address] PCP - General Family Practice 11/30/22 Michael Otoole MD Referring Physician Otolaryngology 06/15/21 documented as of this encounter
--- OUTSIDE RECORDS SUMMARY | 2024-10-25 08:00 | XMS_ITS | Encounter Summary ---
Author Organization [facility] Address [address] [place] [address] Care Team Providers Care Materials And Corrosion Engineer Name Role Phone Michael Otoole MD Unavailable [phone] Audelia Kim MD Unavailable [phone] Johnny Mcgill Primary Care Provider [phone] Reason for Referral * Diagnostic Imaging (Routine) - Closed Specialty Diagnoses / Procedures Referred By Contac t Referred To Contact Diagnoses Lumbar pain Procedures XR Sacroiliac Joints 3 or More Views Audelia Kim MD [address] [place] [address] Phone: tel: fax: [address] [address] Referral ID Status Reason Start Date Expiration Date Visits Re quested Visits Authorized [id number] Closed 08/06/2024 09/05/2025 1 1 Reason for Visit * Diagnostic Imaging (Routine) - Closed Specialty Diagnoses / Procedures Referred By Contac t Referred To Contact Diagnoses Lumbar pain Procedures XR Sacroiliac Joints 3 or More Views Audelia Kim MD [address] [place] [address] Phone: tel: fax: [address] [address] Referral ID Status Reason Start Date Expiration Date Visits Re quested Visits Authorized [id number] Closed 08/06/2024 09/05/2025 1 1 Encounter Details Date Type Department Care Team (Latest Contact Info) Description 08/06/2024 9:38 AM CDT - 08/06/2024 11:59 PM CDT Hospital Encounter [facility] [address] [place] [address] Lumbar pain Discharge Disposition: Discharge to home [...] on file Legal Sex Female 11:50 PM UPHOLSTERER HELPER Gender Identity Not on file Sexual [...] Name Priority Date/Time Associated Diagnosis Comments XR SACROILIAC JOINTS 3 OR MORE VIEWS Schedule Routine, Read Routine (OP Routine) 08/06/2024 9:47 AM CDT Lumbar pain documented in this encounter Results * XR Sacroiliac Joints 3 or More [...] AM T: ??08/09/2024 8:19 AM Report ID: [id number] Reading Location: ??[id number] Procedure Note Addy Jung MD - 08/09/2024 [...] Addy Jung M.D. TH: TH Report ID: [id number] Reading Location: [id number] Audelia Kim MD IMG XR PROCEDURES Final Resul t documented in this encounter Visit Diagnoses Diagnosis Lumbar pain Lumbago documented in this encounter Care Teams Materials And Corrosion Engineer Relationship Specialty Start Date End Date Audelia Kim MD [address] [place] [address] PCP - video software engineer Obstetrics and Gynecology 11/30/22 Johnny Mcgill PA [address] [place] [address] PCP - General Family Practice 11/30/22 Michael Otoole MD Referring Physician Otolaryngology 06/15/21 documented as of this encounter
--- OUTSIDE RECORDS SUMMARY | 2024-10-25 08:01 | XMS_ITS | Encounter Summary ---
Author Organization [facility] Healthcare Address [address] [place] [address] Care Team Providers Care Assistant Associate Professor Name Role Phone Johnny Mcgill Primary Care Provider [phone] Encounter Details Date Type Department Care Team (Late st Contact Info) Description 11/18/2017 4:02 PM SPOT REMOVER - 11/18/2017 11:59 PM SPOT REMOVER Hospital Encounter [facility] Center [address] [place] [address] Johnny Mcgill PA [address] [place] [address] Du Shannon MD [address] [place] [address] [address] [place] [address] Screening breast examination Discharge Disposition: Discharge to home or self care Social History Tobacco Use Types Packs/Day Years Used Date Smoking Tobacco: Never Assessed Alcohol Use Standard Drinks/Week Comments No 0 (1 standard drink = 0.6 oz pur e alcohol) Comments No Sex and Gender Information Value Date Recorded Sex Assigned at Not on file Legal Sex Female 11:50 PM SPOT REMOVER Gender Identity Not on file Sexual Orientation Not on file documented as of this encounter Medications at Time of Discharge zolpidem (AMBIEN) 5 mg tabletIndications :Sleep-Onset Insomnia Take 5 mg by mouth nightly as needed. 0 11/04/2017 12/13/2017 documented as of this encounter Discharge Disposition Disposition Code Departure Means Destination Discharge to home or self care documented in this encounter Plan of Treatment Not on file documented as of this encounter Procedures Procedure Name Priority Date/Time Associated Diagnosis Comments SCREENING MAMMOGRAM BILATERAL W ABRAHAM Schedule Routine, Read Routine (OP Routine) 11/18/2017 4:27 PM SPOT REMOVER Screening breast examination documented in this encounter Results * Screening Mammogram Bilateral W Abraham (11/18/2017 4:27 PM SPOT REMOVER) Anatomical Region Laterality Modality Breast Bilateral Mammography Impressions 11/19/2017 6:59 AM SPOT REMOVER 1. NO DEFINITIVE MAMMOGRAPHIC EVIDENCE OF MALIGNANCY 2. ??ANNUAL FOLLOW-UP RECOMMENDED BI-RADS 1 Electronically signed by: Raúl Deng M.D. Narrative 11/19/2017 6:59 AM SPOT REMOVER SCREENING MAMMOGRAM BILATERAL W ABRAHAM HISTORY: Encounter for screening mammogram for malignant neoplasm of breast TECHNIQUE: 2 views of each breast were obtained with bilateral breast tomosynthesis. COMPARISON: Dating back to 10/24/2009 FINDINGS: The breasts are composed of scattered fibroglandular densities. No suspicious mass or calcification is seen to suggest mammographic evidence of malignancy. Digital technology was employed plus computer aided detection software (R2) was utilized in interpretation of these images. ??This facility utilizes a reminder system to notify patient's of yearly mammograms. Procedure Note Raúl Deng MD / Provider, MD Kapil - 11/19/2017 SCREENING MAMMOGRAM BILATERAL W ABRAHAM HISTORY: Encounter for screening mammogram for malignant neoplasm of breast TECHNIQUE: 2 views of each breast were obtained with bilateral breast tomosynthesis. COMPARISON: Dating back to 10/24/2009 FINDINGS: The breasts are composed of scattered fibroglandular densities. No suspicious mass or calcification is seen to suggest mammographic evidence of malignancy. Digital technology was employed plus computer aided detection software (R2) was utilized in interpretation of these images. This facility utilizes a reminder system to notify patient's of yearly mammograms. IMPRESSION: 1. NO DEFINITIVE MAMMOGRAPHIC EVIDENCE OF MALIGNANCY 2. ANNUAL FOLLOW-UP RECOMMENDED BI-RADS 1 Electronically signed by: Raúl Deng M.D. Johnny DAI IMG MAMMO PROCEDURES Final Re sult documented in this encounter Visit Diagnoses Diagnosis Screening breast examination Other screening breast examination documented in this encounter Care Teams Assistant Associate Professor Relationship Specialty Start Date End Date Johnny Mcgill PA [address] [place] [address] PCP - General 11/04/17 06/14/21 documented as of this encounter
--- OUTSIDE RECORDS SUMMARY | 2024-10-25 08:02 | XMS_ITS | Encounter Summary ---
Author Organization [facility] Address [address] [place] [address] Care Team Providers Care Earth Science Teacher Name Role Phone Nanci Mcdaniel MD Primary Care Provider [phone] Encounter Details Date Type Department Care Team (Late st Contact Info) Description 06/12/2011 10:35 AM CDT - 06/12/2011 2:42 PM CDT Hospital Encounter [facility] Mer[facility] MD [address] [address] Localized osteoarthrosis, lower leg; Affections of shoulder region; Tobacco use disorder Social History Tobacco Use Types Packs/Day Years Used Date Smoking Tobacco: Never Assessed Alcohol Use Standard Drinks/Week Comments No 0 (1 standard drink = 0.6 oz pur e alcohol) Comments Unknown Sex and Gender Information Value Date Recorded Sex Assigned at Not on file Legal Sex Female 11:50 PM SENIOR SSIS DEVELOPER Gender Identity Not on file Sexual Orientation Not on file documented as of this encounter Plan of Treatment Not on file documented as of this encounter Visit Diagnoses Diagnosis Localized osteoarthrosis, lower leg Localized osteoarthrosis not specified whether primary or secondary, lower leg Affections of shoulder region Tobacco use disorder documented in this encounter Care Teams Earth Science Teacher Relationship Specialty Start Date End Date Nanci Mcdaniel MD [address] [address] PCP - General 10/26/10 11/03/17 documented as of this encounter
--- OUTSIDE RECORDS SUMMARY | 2024-10-25 08:02 | XMS_ITS | Encounter Summary ---
Author Organization [facility] Healthcare Address [address] [place] [address] Care Team Providers Care Histotechnologist Name Role Phone Nanci Mcdaniel MD Primary Care Provider [phone] Encounter Details Date Type Department Care Team (Late st Contact Info) Description 01/15/2013 1:00 PM CDT - 01/15/2013 3:06 PM CDT Hospital Encounter [facility] Conce[facility]ion Perez MD [address] [place] [address] Bronchitis; Chronic sinusitis; Tobacco use disorder Social History Tobacco Use Types Packs/Day Years Used Date Smoking Tobacco: Never Assessed Alcohol Use Standard Drinks/Week Comments No 0 (1 standard drink = 0.6 oz pur e alcohol) Comments Unknown Sex and Gender Information Value Date Recorded Sex Assigned at Not on file Legal Sex Female 11:50 PM CIRCULATION CLERK Gender Identity Not on file Sexual Orientation Not on file documented as of this encounter Plan of Treatment Not on file documented as of this encounter Visit Diagnoses Diagnosis Bronchitis Bronchitis, not specified as acute or chronic Chronic sinusitis Unspecified sinusitis (chronic) Tobacco use disorder documented in this encounter Care Teams Histotechnologist Relationship Specialty Start Date End Date Nanci Mdcaniel MD [address] [address] PCP - General 10/26/10 11/03/17 documented as of this encounter
--- OUTSIDE RECORDS SUMMARY | 2024-10-25 08:02 | XMS_ITS | Encounter Summary ---
Author Organization [facility] Address [address] [place] [address] Care Team Providers Care Machine Shop Apprentice Name Role Phone Nanci Mcdaniel MD Primary Care Provider [phone] Encounter Details Date Type Department Care Team (Late st Contact Info) Description 12/20/2014 1:01 PM METAL DRILLING MACHINE OPERATOR - 12/20/2014 11:59 PM METAL DRILLING MACHINE OPERATOR Hospital Encounter [facility] Kristyn Britton MD [address] [place] [address] DR COX [address] [address] Encounter for screening mammogram for high-risk patient; Family history of malignant neoplasm of breast Social History Tobacco Use Types Packs/Day Years Used Date Smoking Tobacco: Never Assessed Alcohol Use Standard Drinks/Week Comments No 0 (1 standard drink = 0.6 oz pur e alcohol) Comments Unknown Sex and Gender Information Value Date Recorded Sex Assigned at Not on file Legal Sex Female 11:50 PM METAL DRILLING MACHINE OPERATOR Gender Identity Not on file Sexual Orientation Not on file documented as of this encounter Plan of Treatment Not on file documented as of this encounter Procedures Procedure Name Priority Date/Time Associated Diagnosis Comments DIGITAL MAMMOGRAPHY Routine 12/20/2014 1 :34 PM METAL DRILLING MACHINE OPERATOR documented in this encounter Results * DIGITAL MAMMOGRAPHY (12/20/2014 1:34 PM METAL DRILLING MACHINE OPERATOR) Anatomical Region Laterality Modality Breast Mammography 12/20/2014 1:34 PM METAL DRILLING MACHINE OPERATOR Narrative 12/30/2014 12:44 PM METAL DRILLING MACHINE OPERATOR MB Performed by: ??dr Screening Mamm Bi ??Acc#: ??[id number] DATE OF EXAM: ??Feb 23 2015 PLEASE SEE ADDENDUM BELOW CLINICAL HISTORY: Screening. ??Family history of breast cancer (mother). ??Previous mammogram 2 years ago at [facility]. RESULT: Craniocaudal and mediolateral oblique views demonstrate scattered fibronodular densities in the breasts bilaterally. ??No dominant mass, skin thickening, nipple retraction or suspicious cluster of microcalcifications seen. Digital technology was employed plus computer-aided detection software (R2) was utilized in interpretation of these images. ??This facility utilizes a reminder system to notify patients of yearly mammograms. IMPRESSION: 1. NO FINDING SUSPICIOUS FOR MALIGNANCY. 2. IF PRIOR MAMMOGRAMS FROM [facility] BECOMES AVAILABLE TO COMPARE, AN ADDENDUM REPORT WILL FOLLOW. BI-RADS CATEGORY 1 - NEGATIVE ADDENDUM: ?? DR. TRAVIS/johnnie 12/30/14 Comparison to prior mammogram at [facility] on 10/16/11 and another on 10/24/09 show a similar pattern of scattered fibronodular densities in the breasts bilaterally without interval changes suspicious for malignancy. ??Recommend rescreening in one year. BI-RADS CATEGORY 1 - NEGATIVE Interpreting Physician: ??DR EDWARD TRAVIS M.D. ??Read on: ??Dec 20 2014 1:35P Transcribed by: ??johnnie ?? On: Dec 20 2014 ??3:53P Approved Electronically by: ??ANGY Henry, DR LEON ??on: ??Mar ??2014 12:43P Attending: ??DR KRISTYN DEUTSCH Requesting: ??DR KRISTYN DEUTSCH Requesting Fax: ??-- Attending Fax: ??-- Attending ID: ??[id number] Requesting ID: ??[id number] Report To 1 ID: ??[id number] Report To 1 Name: ??DR KRISTYN DEUTSCH Report To 1 FAX: ??-- NextGen Order #: Procedure Note Provider, MD Kapil - 02/21/2017 JOHNNIE Performed by: dr Farrar Mamm Bi Acc#: [id number] DATE OF EXAM: Dec 20 2014 PLEASE SEE ADDENDUMBELOW CLINICAL HISTORY: Screening. Family history of breast cancer (mother). Previous mammogram2 years ago at [facility]. RESULT: Craniocaudal and mediolateral oblique views demonstrate scatteredfibronodular densities in the breasts bilaterally. No dominant mass, skinthickening, nipple retraction or suspicious cluster of microcalcificationsseen. Digital technology was employed plus computer-aided detectionsoftware (R2) was utilized in interpretation of these images. Thisfacility utilizes a reminder system to notify patients of yearlymammograms. IMPRESSION: 1. NO FINDING SUSPICIOUS FOR MALIGNANCY. 2. IF PRIOR MAMMOGRAMS FROM [facility] BECOMES AVAILABLE TOCOMPARE, AN ADDENDUM REPORT WILL FOLLOW. BI-RADS CATEGORY 1 - NEGATIVE ADDENDUM: DR. TRAVIS/johnnie 12/30/14 Comparison to prior mammogram at [facility] on 10/16/11 andanother on 10/24/09 show a similar pattern of scattered fibronodulardensities in the breasts bilaterally without interval changes suspiciousfor malignancy. Recommend rescreening in one year. BI-RADS CATEGORY 1 -NEGATIVE Interpreting Physician: DR EDWARD TRAVIS M.D. Read on: Dec 20 20141:35P Transcribed by: johnnie On: Dec 20 2014 3:53P Approved Electronically by: ANGY Henry, DR LEON on: Dec 30 201412:43P Attending: DR KRISTYN DEUTSCH Requesting: DR KRISTYN DETUSCH Requesting Fax: -- Attending Fax: -- Attending ID: [id number] Requesting ID: [id number] Report To 1 ID: [id number] Report To 1 Name: DR KRISTYN DEUTSCH Report To 1 FAX: -- NextGen Order #: us Historical Provider MD PATRIA reese Result documented in this encounter Visit Diagnoses Diagnosis Encounter for screening mammogram for high-risk patient Family history of malignant neoplasm of breast documented in this encounter Care Teams Machine Shop Apprentice Relationship Specialty Start Date End Date Nanci Mcdaniel MD [address] [address] PCP - General 10/26/10 11/03/17 documented as of this encounter
--- OUTSIDE RECORDS SUMMARY | 2024-10-25 08:03 | XMS_ITS | Encounter Summary ---
Author Organization [facility] Healthcare Address [address] [place] [address] Care Team Providers Care Poultry Husbandry Worker Name Role Phone Nanci Mcdaniel MD Primary Care Provider [phone] Encounter Details Date Type Department Care Team (Late st Contact Info) Description 06/07/2011 4:41 PM CDT - 06/07/2011 11:59 PM CDT Hospital Encounter [facility] CLINCONAce Merida MD [address] [place] [address] Other specified pre-operative examination Social History Tobacco Use Types Packs/Day Years Used Date Smoking Tobacco: Never Assessed Alcohol Use Standard Drinks/Week Comments No 0 (1 standard drink = 0.6 oz pur e alcohol) Comments Unknown Sex and Gender Information Value Date Recorded Sex Assigned at Not on file Legal Sex Female 11:50 PM PARTS COUNTER SPECIALIST Gender Identity Not on file Sexual Orientation Not on file documented as of this encounter Plan of Treatment Not on file documented as of this encounter Visit Diagnoses Diagnosis Other specified pre-operative examination documented in this encounter Care Teams Poultry Husbandry Worker Relationship Specialty Start Date End Date Nanci Mcdaniel MD [address] [address] PCP - General 10/26/10 11/03/17 documented as of this encounter
--- OUTSIDE RECORDS SUMMARY | 2024-10-25 08:03 | XMS_ITS | Encounter Summary ---
Author Organization [facility] Healthcare Address [address] [place] [address] Care Team Providers Care Car Dumper Name Role Phone Unavailable Primary Care Provider Unavailabl e Encounter Details Date Type Department Care Team (Late st Contact Info) Description 11/14/2006 12:01 AM ORTHOPEDIC PHYSICIAN ASSISTANT - 11/14/2006 11:59 PM ORTHOPEDIC PHYSICIAN ASSISTANT Hospital Encounter [facility]INCON[facility] Onel Arzola Social History Tobacco Use Types Packs/Day Years Used Date Smoking Tobacco: Never Assessed Comments Unknown Sex and Gender Information Value Date Recorded Sex Assigned at Not on file Legal Sex Female 11:50 PM ORTHOPEDIC PHYSICIAN ASSISTANT Gender Identity Not on file Sexual Orientation Not on file documented as of this encounter Plan of Treatment Not on file documented as of this encounter Visit Diagnoses Not on filedocumented in this encounter
--- OUTSIDE RECORDS SUMMARY | 2024-10-25 08:26 | XMS_ITS | Encounter Summary ---
Author Organization [facility] Address [address] [place] [address] Care Team Providers Care Dehydrogenation Converter Operator Name Role Phone Michael Otoole MD Unavailable [phone] Audelia Kim MD Unavailable [phone] Johnny Mcgill Primary Care Provider [phone] Encounter Details Date Type Department Care Team (Late st Contact Info) Description 04/24/2023 Telephone [facility] Orthopedics and Sports Medicine [address] [place] [address] Alejandra Foster MD [address] [facility] [address] [place] [address] Social History Tobacco Use Types [...] on file Legal Sex Female 11:50 PM MOLDING ASSOCIATE Gender Identity Not on file Sexual Orientation [...] her in a lot sooner. Please call [phone] or fax new order to [phone] documented in this encounter Plan of Treatment Not on file documented as of this encounter Visit Diagnoses Not on filedocumented in this encounter Care Teams Dehydrogenation Converter Operator Relationship Specialty Start Date End Date Audelia Kim MD [address] [place] [address] PCP - manufacturing analyst Obstetrics and Gynecology 11/30/22 Johnny Mcgill PA [address] [place] [address] PCP - General Family Practice 11/30/22 Michael Otoole MD Referring Physician Otolaryngology 06/15/21 documented as of this encounter
--- OUTSIDE RECORDS SUMMARY | 2024-10-25 08:26 | XMS_ITS | Encounter Summary ---
Author Organization [facility] Address [address] [place] [address] Care Team Providers Care Melt House Drag Operator Name Role Phone Michael Otoole MD Unavailable [phone] Johnny Mcgill Primary Care Provider [phone] Encounter Details Date Type Department Care Team (Late st Contact Info) Description 11/01/2022 Telephone [facility] Gastroenterology at [address] [place] [address] Vero Haley Social History Tobacco [...] on file Legal Sex Female 11:50 PM PAPER COATING MACHINE OPERATOR Gender Identity Not on file [...] call with any medical changes and/or medications/insurance. R COATING MACHINE OPERATOR documented in this encounter Plan of Treatment Not on file documented as of this encounter Visit Diagnoses Diagnosis Personal history of colonic polyps- Primary Family history of colon cancer Family history of malignant neoplasm of gastrointestinal tract documented in this encounter Orders Case Request Count Last Ordered Date First Orde red Date CASE REQUEST GI 1 11/01/2022 documented in this encounter Care Teams Melt House Drag Operator Relationship Specialty Start Date End Date Johnny Mcgill PA [address] [place] [address] PCP - General 07/31/21 11/29/22 Michael Otoole MD Referring Physician Otolaryngology 06/15/21 documented as of this encounter
--- OUTSIDE RECORDS SUMMARY | 2024-10-25 08:26 | XMS_ITS | Encounter Summary ---
Author Organization [facility] Address [address] [place] [address] Care Team Providers Care Information Technology Project Manager Name Role Phone Michael Otoole MD Unavailable [phone] Audelia Kim MD Unavailable [phone] Johnny Mcgill Primary Care Provider [phone] Encounter Details Date Type Department Care Team (Late st Contact Info) Description 04/24/2023 Orders Only [facility] Sports Medicine and Primary Care at [address] [place] [address] Aleajndra Foster MD [address] [place] [address] [address] [place] [address] De Quervain's tenosynovitis, right (Primary [...] on file Legal Sex Female 11:50 PM RECEPTIONIST NURSE Gender Identity Not on file Sexual Orientation Not on file documented as of this encounter Plan of Treatment Not on file documented as of this encounter Visit Diagnoses Diagnosis De Quervain's tenosynovitis, right- Primary documented in this encounter Care Teams Information Technology Project Manager Relationship Specialty Start Date End Date Audelia Kim MD [address] [place] [address] PCP - director of student financial services Obstetrics and Gynecology 11/30/22 Johnny Mcgill PA [address] [place] [address] PCP - General Family Practice 11/30/22 Michael Otoole MD Referring Physician Otolaryngology 06/15/21 documented as of this encounter
--- OUTSIDE RECORDS SUMMARY | 2024-10-25 08:26 | XMS_ITS | Encounter Summary ---
Author Organization [facility] Healthcare Address [address] [place] [address] Care Team Providers Care Furniture Mover Driver Name Role Phone Michael Otoole MD Unavailable [phone] Audelia Kim MD Unavailable [phone] Johnny Mcgill Primary Care Provider [phone] Reason for Visit * Auth/Cert Specialty Diagnoses / Procedures Referred By Contac t Referred To Contact Diagnoses Personal history of colonic polyps Family history of colon cancer Personal history of colonic polyps [Z86.010] Family history of colon cancer [Z80.0] Procedures OR COLONOSCOPY FLX DX W/COLLJ SPEC WHEN PFRMD COLONOSCOPY Referral ID Status Reason Start Date Expiration Date Visits Re quested Visits Authorized [id number] 1 1 Encounter Details Date Type Department Care Team (Latest Contact Info) Description 12/19/2022 7:31 AM DIRECTOR CLINICAL PHARMACOLOGY - 12/19/2022 10:05 AM [facility] Hospital Encounter [facility] [address] [place] [address] Scooby Saez MD [address] [place] [address] Discharge Disposition: Discharge to home or self [...] file Legal Sex Female 11:50 PM DIRECTOR CLINICAL PHARMACOLOGY Gender Identity Not on file Sexual Orientation Not on file documented as of this encounter Last Filed Vital Signs Vital Sign Reading Time Taken Comments Blood Pressure 115/67 12/19/2022 9:49 AM DIRECTOR CLINICAL PHARMACOLOGY Pulse 75 12/19/2022 9:49 AM DIRECTOR CLINICAL PHARMACOLOGY Temperature 36.7 ??C (98 ??F) 12/19/2022 9:49 AM DIRECTOR CLINICAL PHARMACOLOGY Respiratory Rate 18 12/19/2022 9:49 AM DIRECTOR CLINICAL PHARMACOLOGY Oxygen Saturation 100% 12/19/2022 9:49 AM DIRECTOR CLINICAL PHARMACOLOGY Inhaled Oxygen Concentration - - Weight 82.1 kg (181 lb) 12/19/2022 7:42 AM DIRECTOR CLINICAL PHARMACOLOGY Height 170.2 cm (5' 7 ) 12/19/2022 7:42 AM DIRECTOR CLINICAL PHARMACOLOGY Body Mass Index 28.35 12/19/2022 7:42 AM DIRECTOR CLINICAL PHARMACOLOGY documented in this encounter Medications at Time [...] cancer GI PLAN/RECOMMENDATIONS: colonoscopy Scooby Saez MD CTOR CLINICAL PHARMACOLOGY documented in this encounter Procedure Notes * Scooby Saez MD - 12/19/2022 7:40 AM CSTAssociated Order(s): COLONOSCOPY [facility] Patient Name: Chelsea Jon Procedure Date: 12/19/2022 7:40 AM Date of : 1965 Admit Type: Outpatient Age: 57 Gender: Female Attending MD: Scooby Saez M.D. Room: [facility] 1 Note Status: Finalized Patient [...] under direct vision. The Pediatric Colonoscope PCF-H190L [id number] was introduced through the anus and advanced [...] 7:40 AM Procedure Code(s): --- Professional --- 11676, Colonoscopy, flexible; diagnostic, including collection of specimen(s) by brushing or washing, when performed (separate procedure) Diagnosis Code(s): --- Professional --- Z86.010, Personal history of colonic polyps K64.8, Other hemorrhoids CPT copyright 2020 [employer]. All rights reserved. The codes documented in this report are preliminary and upon veneer repairer machine review may be revised to meet current compliance requirements. Recognized by the [place] for promoting quality in endoscopy CTOR CLINICAL PHARMACOLOGY documented in this encounter Miscellaneous Notes * Perioperative Nursing Note - Sree Guevara RN - 12/19/2022 9:55 [address] Dr Saez spoke with the patient about the procedure. Patient is to repeat a colonoscopy in 5 years. CTOR CLINICAL PHARMACOLOGY documented in this encounter Plan of Treatment Not on file documented as of this encounter Procedures Procedure Name Priority Date/Time Associated Diagnosis Comments COLONOSCOPY 12/19/2022 8:56 AM DIRECTOR CLINICAL PHARMACOLOGY Personal history of colonic polyps Family history of colon cancer COLONOSCOPY 12/19/2022 7:40 AM DIRECTOR CLINICAL PHARMACOLOGY documented in this encounter Results * COLONOSCOPY (12/19/2022 7:40 AM DIRECTOR CLINICAL PHARMACOLOGY) Anatomical Region Laterality Modality Other Narrative Procedure Note Scooby Saez MD - 12/19/2022 7:40 AM CST [facility] Patient Name: Chelsea Jon Procedure Date: 12/19/2022 7:40 AM Date of : 1965 Admit Type: Outpatient Age: 57 Gender: Female Attending MD: Scooby Saez M.D. Room: [facility] 1 Note Status: Finalized Patient [...] under direct vision. The Pediatric Colonoscope PCF-H190L [id number] was introducedthrough the anus and advanced to [...] 7:40 AM Procedure Code(s): --- Professional --- 23413, Colonoscopy, flexible; diagnostic, including collection of specimen(s) by brushing or washing, when performed (separateprocedure) Diagnosis Code(s): --- Professional --- Z86.010, Personal history of colonic polyps K64.8, Other hemorrhoids CPT copyright 2020 [employer]. All rights reserved. The codes documented in this report are preliminary and upon veneer repairer machine reviewmay be revised to meet current compliance requirements. Recognized by the [employer] for promoting quality [...] 0815, Pre-Procedure (GI) Restarted 12/19/2022 9:04 AM DIRECTOR CLINICAL PHARMACOLOGY New Bag 12/19/2022 7:57 AM DIRECTOR CLINICAL PHARMACOLOGY 30 mL/hr 30 mL/hr sodium chloride 0.9% infusion 125 mL/hr, intravenous, Continuous, Starting on Sat12/19/22 at 0815, Recovery (GI) documented in this encounter Active and Recently Administered Medications Times are shown in DIRECTOR CLINICAL PHARMACOLOGY. Continuous Medication Order 12/17/2022 12/18/2022 12/19/2022 sodium chloride 0.9% infusion 30 mL/hr, intravenous, Continuous, Starting on Sat12/19/22 at 0815, Pre-Procedure (GI) 0757 (New Bag - Prov ider: Sree Guevara RN)0903 (Paused - Provider: Alejandra Rvai CRNA - Comment: Switch to gravity)0904 (Restarted [...] 12/19/2022 documented in this encounter Care Teams Furniture Mover Driver Relationship Specialty Start Date End Date Audelia Kim MD [address] [place] [address] PCP - clinical quality assurance associate Obstetrics and Gynecology 11/30/22 Johnny Mcgill PA [address] [place] [address] PCP - General Family Practice 11/30/22 Michael Otoole MD Referring Physician Otolaryngology 06/15/21 documented as of this encounter
--- OUTSIDE RECORDS SUMMARY | 2024-10-25 08:26 | XMS_ITS | Encounter Summary ---
Author Organization [facility] Healthcare Address [address] [place] [address] Care Team Providers Care Fashion Marketer Name Role Phone Michael Otoole MD Unavailable [phone] Olegario Kim MD Unavailable [phone] Johnny Mcgill Primary Care Provider [phone] Reason for Visit * Diagnostic Imaging (Routine) - Closed Specialty Diagnoses / Procedures Referred By Contderek t Referred To Contact Diagnoses Mastodynia Procedures US Breast Left Limited US Breast Bilateral Limited Olegario Kim MD [address] [place] [address] Phone: tel: fax: [address] [address] Referral ID Status Reason Start Date Expiration Date Visits Re quested Visits Authorized [id number] Closed 11/06/2022 11/21/2022 1 1 Encounter Details Date Type Department Care Team (Latest Contact Info) Description 2022 8:07 AM GENERATION ENGINEER - 2022 11:59 PM GENERATION ENGINEER Hospital Encounter [facility] [address] [place] [address] Mastodynia Discharge Disposition: Discharge to home or [...] on file Legal Sex Female 11:50 PM GENERATION ENGINEER Gender Identity Not on file Sexual Orientation [...] Read Routine (OP Routine) 2022 9:40 AM GENERATION ENGINEER Mastodynia documented in this encounter Results * US Breast Left Limited (2022 9:40 AM GENERATION ENGINEER) Anatomical Region Laterality Modality Breast Left Ultrasound 2022 10:0 5 AM GENERATION ENGINEER Impressions 2022 10:05 AM GENERATION ENGINEER 1. ??No findings identified in the left [...] signed by: VERONIKA Ackerman 2022 10:05 AM GENERATION ENGINEER EXAMINATION: DIAGNOSTIC MAMMOGRAM BILATERAL W NAZARIO, US [...] Mastodynia documented in this encounter Care Teams Fashion Marketer Relationship Specialty Start Date End Date Olegario Kim MD [address] [facility] [address] [address] PCP - credit historian Obstetrics and Gynecology 11/30/22 Johnny Mcgill PA [address] [place] [address] PCP - General Family Practice 11/30/22 Michael Otoole MD Referring Physician Otolaryngology 06/15/21 documented as of this encounter
--- OUTSIDE RECORDS SUMMARY | 2024-10-25 08:26 | XMS_ITS | Clinical Summary ---
Author Organization [facility] Address [address] [place] [address] Care Team Providers Care Waterfront Director Name Role Phone Michael Otoole MD Unavailable [phone] Audelia Kim MD Unavailable [phone] Johnny Mcgill Primary Care Provider [phone] Allergies No known active allergies Medications ibuprofen 200 mg tab/cap Take 1 tablet/caps ule (200 mg total) by mouth every 6 (six) hours as needed for pain Active Active Problems Problem Noted Date Diagnosed Date De Quervain's tenosynovitis, right 03/28/2023 Family history of colon cancer 11/22/2020 Overview (11/22/2020): Added automatically from request for surgery [id number] Personal history of colonic polyps 11/22/2020 Overview (11/22/2020): Added automatically from request for surgery [id number] Encounter for screening colonoscopy 11/22/2020 Overview (11/22/2020): Added automatically from request for surgery [id number] Encounters Date Type Department Care Team Description 10/05/2024 4:32 PM PROTOTYPE FABRICATOR - 10/05/2024 11:59 PM PROTOTYPE FABRICATOR Hospital Encounter [address] [address] Encounter for screening for malignant neoplasm of respiratory organs; Nicotine dependence, cigarettes, uncomplicated Discharge Disposition: Discharge to home or self care 10/02/[address] [place] [address] Zina Rossi RN 08/06/2024 9:38 AM CDT - 08/06/2024 11:59 PM CDT Hospital Encounter [facility] [address] [place] [address] Lumbar pain Discharge Disposition: Discharge to home [...] on file Legal Sex Female 11:50 PM PROTOTYPE FABRICATOR Gender Identity Not on file Sexual Orientation [...] 81.6 kg (180 lb) 10/05/2024 4:44 PM PROTOTYPE FABRICATOR Height 167.6 cm (5' 6 ) 10/05/2024 4:44 PM PROTOTYPE FABRICATOR Body Mass Index 29.05 10/05/2024 4:44 PM PROTOTYPE FABRICATOR Plan of Treatment Health Maintenance Due Date [...] Read Routine (OP Routine) 10/05/2024 4:44 PM PROTOTYPE FABRICATOR Encounter for screening for malignant neoplasm of respiratory organs Nicotine dependence, cigarettes, uncomplicated XR SACROILIAC JOINTS 3 OR MORE VIEWS Schedule Routine, Read Routine (OP Routine) 08/06/2024 9:47 AM CDT Lumbar pain COLONOSCOPY 12/19/2022 7:40 AM PROTOTYPE FABRICATOR DIAGNOSTIC MAMMOGRAM BILATERAL W ABRAHAM Schedule Routine, Read Routine (OP Routine) 2022 8:28 AM PROTOTYPE FABRICATOR Mastodynia from Last 3 Months or Most Recently Relevant to Health Maintenance Results * CT Lung Cancer Screening (10/05/2024 4:44 PM PROTOTYPE FABRICATOR) Anatomical Region Laterality Modality Chest N/A Computed Tomogra phy 10/12/2024 9:00 AM PROTOTYPE FABRICATOR Narrative 10/12/2024 9:14 AM PROTOTYPE FABRICATOR EXAM DESCRIPTION: ?? CT LUNG CANCER SCREENING [...] AM T: ??10/12/2024 9:14 AM Report ID: [id number] Reading Location: ??[id number] Procedure Note Etelvina Terrazas MD - 10/12/2024 [...] 10/12/2024 9:14 AM - Electronically signed by Eetlvina Matias M.D. FT: FT Report ID: [id number] Reading Location: [id number] Audelia Kim MD IMG CT PROCEDURES Final [...] AM T: ??08/09/2024 8:19 AM Report ID: [id number] Reading Location: ??[id number] Procedure Note Addy Jung MD - 08/09/2024 [...] by Addy Jung M.D. TH: Report ID: [id number] Reading Location: [id number] us Audelia Kim MD IMG XR PROCEDURES Final Resul t * COLONOSCOPY (12/19/2022 7:40 AM PROTOTYPE FABRICATOR) Anatomical Region Laterality Modality Other Narrative Procedure Note Scooby Saez MD - 12/19/2022 7:40 AM CST [facility] Patient Name: Chelsea Salazar Procedure Date: [...] under direct vision. The Pediatric Colonoscope PCF-H190L [id number] was introducedthrough the anus and advanced to [...] 7:40 AM Procedure Code(s): --- Professional --- 82130, Colonoscopy, flexible; diagnostic, including collection of specimen(s) by brushing or washing, when performed (separateprocedure) Diagnosis Code(s): --- Professional --- Z86.010, Personal history of colonic polyps K64.8, Other hemorrhoids CPT copyright 2020 [employer]. All rights reserved. The codes documented in this report are preliminary and upon resistance welding machine operator reviewmay be revised to meet current compliance requirements. Recognized by the [employer] for promoting quality in endoscopy us Scooby Saez MD ENDOSCOPY PROCEDURES Final Result * Diagnostic Mammogram Bilateral W Abraham (2022 8:28 AM PROTOTYPE FABRICATOR) Anatomical Region Laterality Modality Breast Bilateral Mammography 2022 10:0 5 AM PROTOTYPE FABRICATOR Impressions 2022 10:05 AM PROTOTYPE FABRICATOR 1. ??No findings identified in the left [...] signed by: VERONIKA Ackerman 2022 10:05 AM PROTOTYPE FABRICATOR EXAMINATION: DIAGNOSTIC MAMMOGRAM BILATERAL W ABRAHAM, US [...] Most Recently Relevant to Health Maintenance Insurance [facility] Specle OPEN ACCESS [facility] CMR Advance Directives For more information, please contact: [phone] * Full Code (Latest Code Status on File) Date Activated Date Inactivated Comments 12/19/2022 7:35 AM 12/19/2022 2:06 PM * Full Code Date Activated Date Inactivated Comments 12/19/2022 7:35 AM 12/19/2022 7:35 AM * Full Code Date Activated Date Inactivated Comments 12/13/2017 9:04 AM 12/13/2017 1:19 PM Care Teams Waterfront Director Relationship Specialty Start Date End Date Audelia Kim MD [address] [place] [address] PCP - live hanger Obstetrics and Gynecology 11/30/22 Johnny Mcgill PA [address] [place] [address] PCP - General Family Practice 11/30/22 Michael Otoole MD Referring Physician Otolaryngology 06/15/21
--- OUTSIDE RECORDS SUMMARY | 2024-10-25 08:26 | XMS_ITS | Encounter Summary ---
Author Organization [facility] Address [address] [place] [address] Care Team Providers Care Window Treatment Installer Name Role Phone Michael Otoole MD Unavailable [phone] Audelia Kim MD Unavailable [phone] Johnny Mcgill Primary Care Provider [phone] Encounter Details Date Type Department Care Team (Late st Contact Info) Description 12/28/2022 Telephone [facility] [address] [place] [id number] Karli West RT Social History Tobacco Use [...] on file Legal Sex Female 11:50 PM INTEGRATED CIRCUIT DESIGN ENGINEER Gender Identity Not on file Sexual Orientation Not on file documented as of this encounter Miscellaneous Notes * Telephone Encounter - Karli West RT - 12/28/2022 11:48 AM INTEGRATED CIRCUIT DESIGN ENGINEER Conf appt GRATED CIRCUIT DESIGN ENGINEER documented in this encounter Plan of Treatment Not on file documented as of this encounter Visit Diagnoses Not on filedocumented in this encounter Care Teams Window Treatment Installer Relationship Specialty Start Date End Date Audelia Kim MD [address] [place] [address] PCP - burnishing machine operator Obstetrics and Gynecology 11/30/22 Johnny Mcgill PA [address] [place] [address] PCP - General Family Practice 11/30/22 Michael Otoole MD Referring Physician Otolaryngology 06/15/21 documented as of this encounter
--- OUTSIDE RECORDS SUMMARY | 2024-10-25 08:26 | XMS_ITS | Encounter Summary ---
Author Organization [facility] Address [address] [place] [address] Care Team Providers Care Machine Veneer Repairer Name Role Phone Michael Otoole MD Unavailable [phone] Audelia Kim MD Unavailable [phone] Johnny Mcgill Primary Care Provider [phone] Reason for Referral * MRI/CAT/PET Scan (Routine) - Closed Specialty Diagnoses / Procedures Referred By Contac t Referred To Contact Radiology Diagnoses Personal history of nicotine dependence Procedures CT Lung Cancer Screening Audelia Kim MD [address] [place] [address] Phone: tel: fax: [address] [address] Referral ID Status Reason Start Date Expiration Date Visits Re quested Visits Authorized [id number] Closed 12/13/2022 01/10/2023 1 1 CLERK Reason for Visit * MRI/CAT/PET Scan (Routine) - Closed Specialty Diagnoses / Procedures Referred By Panfilo ventura Referred To Contact Radiology Diagnoses Personal history of nicotine dependence Procedures CT Lung Cancer Screening Audelia Kim MD [address] [place] [address] Phone: tel: fax: [address] [address] Referral ID Status Reason Start Date Expiration Date Visits Re quested Visits Authorized [id number] Closed 12/13/2022 01/10/2023 1 1 Encounter Details Date Type Department Care Team (Latest Contact Info) Description 12/31/2022 3:58 PM MAP CLERK - 12/31/2022 11:59 PM MAP CLERK Hospital Encounter [facility] [address] [place] [id number] Personal history of nicotine dependence Discharge Disposition: [...] on file Legal Sex Female 11:50 PM MAP CLERK Gender Identity Not on file Sexual Orientation Not on file documented as of this encounter Last Filed Vital Signs Vital Sign Reading Time Taken Comments Blood Pressure - - Pulse - - Temperature - - Respiratory Rate - - Oxygen Saturation - - Inhaled Oxygen Concentration - - Weight 82.1 kg (181 lb) 12/31/2022 5:24 PM MAP CLERK Height 170.2 cm (5' 7 ) 12/31/2022 5:24 PM MAP CLERK Body Mass Index 28.35 12/31/2022 5:24 PM MAP CLERK documented in this encounter Medications at Time [...] Read Routine (OP Routine) 12/31/2022 5:23 PM MAP CLERK Personal history of nicotine dependence documented in this encounter Results * CT Lung Cancer Screening (12/31/2022 5:23 PM MAP CLERK) Anatomical Region Laterality Modality Chest N/A Computed Tomogra phy 01/01/2023 1:46 PM MAP CLERK Narrative 01/01/2023 2:00 PM MAP CLERK EXAM DESCRIPTION: ?? CT LUNG CANCER SCREENING [...] SMOKING RELATED LUNG DISEASE: ?? There are dwwh-pj-debsaxvq emphysematous changes of lungs with scattered mild [...] for stability as clinically indicated. 2. ?? Pshe-xt-znggyxnx emphysematous changes of lungs with scattered mild subsegmental atelectasis and scarring. Lung-RADS v1.1 category ??4A: Suspicious. Recommendation: ??Low dose CT of chest in 3 months. THIS IS AN ELECTRONICALLY VERIFIED FINAL REPORT 01/01/2023 2:00 PM - Electronically signed by ??Blade Walls D.O. PS: PS D: ??01/01/2023 2:00 PM T: ??01/01/2023 2:00 PM Report ID: [id number] Reading Location: ??[id number] Procedure Note Blade Walls, - 01/01/2023 EXAM [...] FINDINGS: SMOKING RELATED LUNG DISEASE: There are iiih-gp-wnmfovyg emphysematous changes of lungs with scattered mild [...] assess for stability as clinically indicated. 2. Ddwj-eo-fhyxmupp emphysematous changes of lungs with scattered mild subsegmental atelectasis and scarring. Lung-RADS v1.1 category 4A: Suspicious. Recommendation: Low dose CT of chest in 3 months. THIS IS AN ELECTRONICALLY VERIFIED FINAL REPORT 01/01/2023 2:00 PM - Electronically signed by Blade Walls D.O. PS: PS Report ID: [id number] Reading Location: [place] [address] Audelia Kim MD IMG CT PROCEDURES Final Resul t documented in this encounter Visit Diagnoses Diagnosis Personal history of nicotine dependence documented in this encounter Care Teams Machine Veneer Repairer Relationship Specialty Start Date End Date Audelia Kim MD [address] [place] [address] PCP - box blank machine operator Obstetrics and Gynecology 11/30/22 Johnny Mcgill PA [address] [place] [address] PCP - General Family Practice 11/30/22 Michael Otoole MD Referring Physician Otolaryngology 06/15/21 documented as of this encounter
--- OUTSIDE RECORDS SUMMARY | 2024-10-25 08:26 | XMS_ITS | Encounter Summary ---
Author Organization [facility] Address [address] [place] [address] Care Team Providers Care Director Of Counterintelligence Name Role Phone Michael Otoole MD Unavailable [phone] Audelia Kim MD Unavailable [phone] Johnny Mcgill Primary Care Provider [phone] Reason for Visit * Auth/Cert Specialty Diagnoses / Procedures Referred By Contac t Referred To Contact Diagnoses Personal history of colonic polyps Family history of colon cancer Personal history of colonic polyps [Z86.010] Family history of colon cancer [Z80.0] Procedures SC COLONOSCOPY FLX DX W/COLLJ SPEC WHEN PFRMD COLONOSCOPY Referral ID Status Reason Start Date Expiration Date Visits Re quested Visits Authorized [id number] 1 1 Encounter Details Date Type Department Care Team (Late st Contact Info) Description 12/19/2022 9:04 AM AUTOMOTIVE SERVICE MANAGER Anesthesia Event [facility] [address] [place] [address] Cayden Godoy MD [address] [place] [address] Scott Morley MD [address] [place] [address] Anesthesia Record Procedure Summary Procedure Name Responsible [...] on file Legal Sex Female 11:50 PM AUTOMOTIVE SERVICE MANAGER Gender Identity Not on file Sexual Orientation Not on file documented as of this encounter OR Notes * Anesthesia Postprocedure Evaluation - Cayden Godoy MD - 12/19/2022 10:00 AM CST Patient: Chelsea Salazar Procedure Summary Date: 12/19/22 Room / Location: [facility] 1 / [facility] Anesthesia Start: 903 Anesthesia Stop: 915 [...] Nausea/Vomiting status: none No notable events documented. MOTIVE SERVICE MANAGER * Anesthesia Preprocedure Evaluation - Scott Morley [...] Medication protocol when under care of a GAG WRITER Planned anesthesia: MAC Induction: Induction: intravenous. Postoperative Plan: Patient's planned disposition post procedure is Outpatient. Informed Consent: Discussed plan with GAG WRITER. Anesthesia plan and risks discussed with patient. Consent and Attending signature: I and/or my designee have discussed the anesthesia plan, benefits, possible alternatives, parental presence at time of induction (if indicated), and clinically relevant risks that may include dental injury, unintentional awareness, and/or other complications. The patient and/or parent/legal guardian understand, and agree to proceed. All questions answered. MOTIVE SERVICE MANAGER MOTIVE SERVICE MANAGER documented in this encounter Plan of [...] 0906, Anesthesia Intra-op Given 12/19/2022 9:06 AM AUTOMOTIVE SERVICE MANAGER 80 mg propofoL (DIPRIVAN) 10 mg/mL IV intravenous, As needed, Starting on Sat12/19/22 at 0906, Anesthesia Intra-op Given 12/19/2022 9:13 AM AUTOMOTIVE SERVICE MANAGER 30 mg Given 12/19/2022 9:10 AM AUTOMOTIVE SERVICE MANAGER 30 mg Given 12/19/2022 9:09 AM AUTOMOTIVE SERVICE MANAGER 30 mg sodium chloride 0.9% infusion 30 mL/hr, intravenous, Continuous, Starting on Sat12/19/22 at 0815, Pre-Procedure (GI) Restarted 12/19/2022 9:04 AM AUTOMOTIVE SERVICE MANAGER New Bag 12/19/2022 7:57 AM AUTOMOTIVE SERVICE MANAGER 30 mL/hr 30 mL/hr documented in this encounter Care Teams Director Of Counterintelligence Relationship Specialty Start Date End Date Audelia Kim MD [address] [place] [address] PCP - telephone coin box collector Obstetrics and Gynecology 11/30/22 Johnny Mcgill PA [address] [place] [address] PCP - General Family Practice 11/30/22 Michael Otoole MD Referring Physician Otolaryngology 06/15/21 documented as of this encounter
--- OUTSIDE RECORDS SUMMARY | 2024-10-25 08:26 | XMS_ITS | Encounter Summary ---
Author Organization [facility] Address [address] [place] [address] Care Team Providers Care Migrant Leader Name Role Phone Carlyn Mcgill Primary Care Provider [phone] Reason for Referral * Diagnostic Imaging (Routine) - Closed Specialty Diagnoses / Procedures Referred By Panfilo ventura Referred To Contact Radiology Diagnoses New daily persistent headache (ndph) Procedures CT Head WO Contrast Carlyn Mcgill PA [address] [place] [address] Phone: tel: fax: [address] [phone] Referral ID Status Reason Start Date Expiration Date Visits Re quested Visits Authorized [id number] Closed 01/11/2021 02/10/2022 1 1 Reason for Visit * Diagnostic Imaging (Routine) - Closed Specialty Diagnoses / Procedures Referred By Contac t Referred To Contact Radiology Diagnoses New daily persistent headache (ndph) Procedures CT Head WO Contrast Carlyn Mcgill PA [address] [place] [address] Phone: tel: fax: [address] [phone] Referral ID Status Reason Start Date Expiration Date Visits Re quested Visits Authorized [id number] Closed 01/11/2021 02/10/2022 1 1 Encounter Details Date Type Department Care Team ([facility] st Contact Info) Description 01/18/2021 6:50 AM CDT - 01/18/2021 11:59 PM CDT Hospital Encounter [facility] [address] [place] [address] Du Shannon MD [address] [place] [address] Carlyn Mcgill, MALAIKA [address] [place] [address] New daily persistent headache (ndph) Discharge Disposition: [...] on file Legal Sex Female 11:50 PM DISBURSEMENT CLERK Gender Identity Not on file Sexual [...] (ndph) documented in this encounter Care Teams Migrant Leader Relationship Specialty Start Date End Date Carlyn Mcgill PA [address] [place] [address] PCP - General 11/04/17 06/14/21 documented as of this encounter
--- OUTSIDE RECORDS SUMMARY | 2024-10-25 08:26 | XMS_ITS | Referral Summary ---
Author Organization [facility] Address [address] [place] [address] Care Team Providers Care Regional Administrative Assistant Name Role Phone Michael Otoole MD Unavailable [phone] Audelia Kim MD Unavailable [phone] Johnny Mcgill Primary Care Provider Encounters Date Type Department Care Team Description 10/05/2024 4:32 PM RADIATOR CORE TESTER - 10/05/2024 11:59 PM RADIATOR CORE TESTER Hospital Encounter [address] [address] Encounter for screening for malignant neoplasm of respiratory organs; Nicotine dependence, cigarettes, uncomplicated Discharge Disposition: Discharge to home or self care 10/02/[address] [address] Zina Rossi RN 08/06/2024 9:38 AM CDT - 08/06/2024 11:59 PM CDT Hospital Encounter [address] [address] Lumbar pain Discharge Disposition: Discharge to home [...] (11/22/2020): Added automatically from request for surgery [id number] Personal history of colonic polyps 11/22/2020 Overview (11/22/2020): Added automatically from request for surgery [id number] Encounter for screening colonoscopy 11/22/2020 Overview (11/22/2020): Added automatically from request for surgery [id number] Immunizations Name Administration Dates Next Due Influenza, [...] on file Legal Sex Female 11:50 PM RADIATOR CORE TESTER Gender Identity Not on file Sexual Orientation [...] 81.6 kg (180 lb) 10/05/2024 4:44 PM RADIATOR CORE TESTER Height 167.6 cm (5' 6 ) 10/05/2024 4:44 PM RADIATOR CORE TESTER Body Mass Index 29.05 10/05/2024 4:44 PM RADIATOR CORE TESTER Plan of Treatment Not on file Procedures Procedure Name Priority Date/Time Associated Diagnosis Comments CT LUNG CANCER SCREENING Schedule Routine, Read Routine (OP Routine) 10/05/2024 4:44 PM RADIATOR CORE TESTER Encounter for screening for malignant neoplasm of respiratory organs Nicotine dependence, cigarettes, uncomplicated XR SACROILIAC JOINTS 3 OR MORE VIEWS Schedule Routine, Read Routine (OP Routine) 08/06/2024 9:47 AM CDT Lumbar pain COLONOSCOPY 12/19/2022 7:40 AM RADIATOR CORE TESTER DIAGNOSTIC MAMMOGRAM BILATERAL W ABRAHAM Schedule Routine, Read Routine (OP Routine) 2022 8:28 AM RADIATOR CORE TESTER Mastodynia from Last 3 Months or Most Recently Relevant to Health Maintenance Results * CT Lung Cancer Screening (10/05/2024 4:44 PM RADIATOR CORE TESTER) Anatomical Region Laterality Modality Chest N/A Computed Tomogra phy 10/12/2024 9:00 AM RADIATOR CORE TESTER Narrative 10/12/2024 9:14 AM RADIATOR CORE TESTER EXAM DESCRIPTION: ?? CT LUNG CANCER SCREENING [...] AM T: ??10/12/2024 9:14 AM Report ID: [id number] Reading Location: ??[id number] Procedure Note Etelvina Terrazas MD - 10/12/2024 [...] Etelvina Matias M.D. FT: FT Report ID: [id number] Reading Location: [place] [address] Audelia Kim MD IMG CT PROCEDURES Final [...] AM T: ??08/09/2024 8:19 AM Report ID: [id number] Reading Location: ??[id number] Procedure Note Addy Jung MD - 08/09/2024 [...] Addy Jung M.D. TH: TH Report ID: [id number] Reading Location: [id number] us Audelia Kim MD IMG XR PROCEDURES Final Resul t * COLONOSCOPY (12/19/2022 7:40 AM RADIATOR CORE TESTER) Anatomical Region Laterality Modality Other Narrative Procedure Note Scooby Saez MD - 12/19/2022 7:40 AM CST [facility] Patient Name: Chelsea Jon Procedure Date: 12/19/2022 7:40 AM Date of : 1965 Admit Type: Outpatient Age: 57 Gender: Female Attending MD: Scooby Saez M.D. Room: [facility] ENDOSCOPY ROOM 1 Note Status: [...] under direct vision. The Pediatric Colonoscope PCF-H190L [id number] was introducedthrough the anus and advanced to [...] 7:40 AM Procedure Code(s): --- Professional --- 66469, Colonoscopy, flexible; diagnostic, including collection of specimen(s) by brushing or washing, when performed (separateprocedure) Diagnosis Code(s): --- Professional --- Z86.010, Personal history of colonic polyps K64.8, Other hemorrhoids CPT copyright 2020 [employer]. All rights reserved. The codes documented in this report are preliminary and upon inpatient coder reviewmay be revised to meet current compliance requirements. Recognized by the [employer] for promoting quality in endoscopy Scooby Saez MD ENDOSCOPY PROCEDURES Final Result * Diagnostic Mammogram Bilateral W Abraham (2022 8:28 AM RADIATOR CORE TESTER) Anatomical Region Laterality Modality Breast Bilateral Mammography 2022 10:0 5 AM RADIATOR CORE TESTER Impressions 2022 10:05 AM RADIATOR CORE TESTER 1. ??No findings identified in the left [...] signed by: VERONIKA Ackerman 2022 10:05 AM RADIATOR CORE TESTER EXAMINATION: DIAGNOSTIC MAMMOGRAM BILATERAL W ABRAHAM, US [...] Most Recently Relevant to Health Maintenance Insurance [facility] OPEN ACCESS [facility] CMR Advance Directives For more information, please contact: [phone] * Full Code (Latest Code Status on File) Date Activated Date Inactivated Comments 12/19/2022 7:35 AM 12/19/2022 2:06 PM * Full Code Date Activated Date Inactivated Comments 12/19/2022 7:35 AM 12/19/2022 7:35 AM * Full Code Date Activated Date Inactivated Comments 12/13/2017 9:04 AM 12/13/2017 1:19 PM Care Teams Regional Administrative Assistant Relationship Specialty Start Date End Date Audelia Kim MD [address] [place] [address] PCP - electronic heat seal operator Obstetrics and Gynecology 11/30/22 Johnny Mcgill PA [address] [place] [address] PCP - General Family Practice 11/30/22 Michael Otoole MD Referring Physician Otolaryngology 06/15/21
--- OUTSIDE RECORDS SUMMARY | 2024-10-25 08:26 | XMS_ITS | Encounter Summary ---
Author Organization [facility] Healthcare Address [address] [place] [address] Care Team Providers Care Culinary Manager Name Role Phone Johnny Mcgill Primary Care Provider [phone] Encounter Details Date Type Department Care Team (Late st Contact Info) Description 01/17/[address] [address] Kiera Rodriguez RT Social History Tobacco Use Types Packs/Day Years Used Date Smoking Tobacco: Every Day Cigarettes 1 25 Smokeless Tobacco: Never Alcohol Use Standard Drinks/Week Comments No 0 (1 standard drink = 0.6 oz pur e alcohol) Comments No Sex and Gender Information Value Date Recorded Sex Assigned at Not on file Legal Sex Female 11:50 PM BRICK OR BLOCK MAKER Gender Identity Not on file Sexual Orientation Not on file documented as of this encounter Miscellaneous Notes * Telephone Encounter - Kiera Rodriguez RT - 01/17/2021 1:05 PM CDT Appointment confirmed documented in this encounter Plan of Treatment Not on file documented as of this encounter Visit Diagnoses Not on filedocumented in this encounter Care Teams Culinary Manager Relationship Specialty Start Date End Date Johnny Mcgill PA [address] [place] [address] PCP - General 11/04/17 06/14/21 documented as of this encounter
--- OUTSIDE RECORDS SUMMARY | 2024-10-25 08:26 | XMS_ITS | Encounter Summary ---
Author Organization [facility] Healthcare Address [address] [place] [address] Care Team Providers Care Biochemistry Teacher Name Role Phone Michael Otoole MD Unavailable [phone] Audelia Kim MD Unavailable [phone] Johnny Mcgill Primary Care Provider [phone] Encounter Details Date Type Department Care Team (Late st Contact Info) Description 10/02/2024 Telephone [facility] Imaging Center [address] [place] [address] Zina Rossi RN Social History Tobacco Use [...] on file Legal Sex Female 11:[address] MAINTENANCE SUPERVIS[address] Gender Identity Not on file Sexual Orientation Not on file documented as of this encounter Miscellaneous Notes * Telephone Encounter - Zina Rossi RN - 10/02/2024 2:[address] MAINTENANCE SUPERVIS[address] Reviewed history with patient. Patient is aware of date/time/location of CT LCS. WAY MAINTENANCE SUPERVISOR documented in this encounter Plan of Treatment Not on file documented as of this encounter Visit Diagnoses Not on filedocumented in this encounter Care Teams Biochemistry Teacher Relationship Specialty Start Date End Date Audelia Kim MD [address] [place] [address] PCP - hospital insurance representative Obstetrics and Gynecology 11/30/22 Johnny Mcgill PA [address] [place] [address] PCP - General Family Practice 11/30/22 Michael Otoole MD Referring Physician Otolaryngology 06/15/21 documented as of this encounter
--- OUTSIDE RECORDS SUMMARY | 2024-10-25 08:26 | XMS_ITS | Encounter Summary ---
Author Organization [facility] Healthcare Address [address] [place] [address] Care Team Providers Care Medical Office Assistant Instructor Name Role Phone Michael Otoole MD Unavailable [phone] Olegario Kim MD Unavailable [phone] Johnny Mcgill Primary Care Provider Reason for Referral * Diagnostic Imaging (Routine) - Closed Specialty Diagnoses / Procedures Referred By Panfilo ventura Referred To Contact Diagnoses Mastodynia Procedures Diagnostic Mammogram Bilateral W Olegario Ross MD [address] [place] [address] Phone: tel: fax: [address] [address] Referral ID Status Reason Start Date Expiration Date Visits Re quested Visits Authorized [id number] Closed 11/01/2022 12/01/2023 1 1 TIC PHYSICIAN Reason for Visit * Diagnostic Imaging (Routine) - Closed Specialty Diagnoses / Procedures Referred By Panfilo ventura Referred To Contact Diagnoses Mastodynia Procedures Diagnostic Mammogram Bilateral W Olegario Ross MD [address] [place] [address] Phone: tel: fax: [address] [phone] Referral ID Status Reason Start Date Expiration Date Visits Re quested Visits Authorized [id number] Closed 11/01/2022 12/01/2023 1 1 Encounter Details Date Type Department Care Team (Latest Contact Info) Description 2022 8:07 AM GENETIC PHYSICIAN - 2022 11:59 PM GENETIC PHYSICIAN Hospital Encounter [facility] [address] [place] [address] Mastodynia Discharge Disposition: Discharge to home or [...] on file Legal Sex Female 11:50 PM GENETIC PHYSICIAN Gender Identity Not on file Sexual Orientation [...] Read Routine (OP Routine) 2022 8:28 AM GENETIC PHYSICIAN Mastodynia documented in this encounter Results * Diagnostic Mammogram Bilateral W Abraham (2022 8:28 AM GENETIC PHYSICIAN) Anatomical Region Laterality Modality Breast Bilateral Mammography 2022 10:0 5 AM GENETIC PHYSICIAN Impressions 2022 10:05 AM GENETIC PHYSICIAN 1. ??No findings identified in the left [...] signed by: VERONIKA Ackerman 2022 10:05 AM GENETIC PHYSICIAN EXAMINATION: DIAGNOSTIC MAMMOGRAM BILATERAL W ABRAHAM, US [...] Mastodynia documented in this encounter Care Teams Medical Office Assistant Instructor Relationship Specialty Start Date End Date Olegario Kim MD [address] [place] [address] PCP - blood donor recruiter supervisor Obstetrics and Gynecology 11/30/22 Johnny Mcgill PA [address] [place] [address] PCP - General Family Practice 11/30/22 Michael Otoole MD Referring Physician Otolaryngology 06/15/21 documented as of this encounter
--- OUTSIDE RECORDS SUMMARY | 2024-10-25 08:26 | XMS_ITS | Encounter Summary ---
Author Organization [facility] Address [address] [place] [address] Care Team Providers Care Sales Enablement Analyst Name Role Phone Michael Otoole MD Unavailable [phone] Audelia Kim MD Unavailable [phone] Johnny Mcgill Primary Care Provider [phone] Reason for Visit * Auth/Cert Specialty Diagnoses / Procedures Referred By Contac t Referred To Contact Diagnoses Personal history of colonic polyps Family history of colon cancer Personal history of colonic polyps [Z86.010] Family history of colon cancer [Z80.0] Procedures OH COLONOSCOPY FLX DX W/COLLJ SPEC WHEN PFRMD COLONOSCOPY Referral ID Status Reason Start Date Expiration Date Visits Re quested Visits Authorized [id number] 1 1 Encounter Details Date Type Department Care Team (Late st Contact Info) Description 12/19/2022 8:30 AM SOLVENT MIXER - 12/19/2022 9:00 AM SOLVENT MIXER Surgery [facility] Center [address] [place] [address] Scooby Saez MD [address] [place] [address] COLONOSCOPY Surgery Details Date/Time Status Location OR [...] on file Legal Sex Female 11:50 PM SOLVENT MIXER Gender Identity Not on file Sexual Orientation Not on file documented as of this encounter Last Filed Vital Signs Vital Sign Reading Time Taken Comments Blood Pressure 123/71 12/19/2022 7:42 AM SOLVENT MIXER Pulse 87 12/19/2022 7:42 AM SOLVENT MIXER Temperature 37.2 ??C (98.9 ??F) 12/19/2022 7:42 AM CS T Respiratory Rate 16 12/19/2022 7:42 AM SOLVENT MIXER Oxygen Saturation 99% 12/19/2022 7:42 AM SOLVENT MIXER Inhaled Oxygen Concentration - - Weight 82.1 kg (181 lb) 12/19/2022 7:42 AM SOLVENT MIXER Height 170.2 cm (5' 7 ) 12/19/2022 7:42 AM SOLVENT MIXER Body Mass Index 28.35 12/19/2022 7:42 AM SOLVENT MIXER documented in this encounter Medications at Time [...] cancer GI PLAN/RECOMMENDATIONS: colonoscopy Scooby Saez MD ENT MIXER documented in this encounter Procedure Notes * Scooby Saez MD - 12/19/2022 7:40 AM CSTAssociated Order(s): COLONOSCOPY [facility] Patient Name: [place] Jon Procedure Date: 12/19/2022 7:40 AM Date of : 1965 Admit Type: Outpatient Age: 57 Gender: Female Attending MD: Scooby Saez M.D. Room: [facility] 1 Note Status: Finalized Patient [...] under direct vision. The Pediatric Colonoscope PCF-H190L [id number] was introduced through the anus and advanced [...] 7:40 AM Procedure Code(s): --- Professional --- 31000, Colonoscopy, flexible; diagnostic, including collection of specimen(s) by brushing or washing, when performed (separate procedure) Diagnosis Code(s): --- Professional --- Z86.010, Personal history of colonic polyps K64.8, Other hemorrhoids CPT copyright 2020 [employer]. All rights reserved. The codes documented in this report are preliminary and upon computer language coder review may be revised to meet current compliance requirements. Recognized by the [employer] for promoting quality in endoscopy ENT MIXER documented in this encounter Miscellaneous Notes * Perioperative Nursing Note - Sree Guevara RN - 12/19/2022 9:[address] Saez spoke with the patient about the procedure. Patient is to repeat a colonoscopy in 5 years. ENT MIXER documented in this encounter Plan of Treatment Not on file documented as of this encounter Procedures Procedure Name Priority Date/Time Associated Diagnosis Comments COLONOSCOPY 12/19/2022 8:56 AM SOLVENT MIXER Personal history of colonic polyps Family history of colon cancer COLONOSCOPY 12/19/2022 7:40 AM SOLVENT MIXER documented in this encounter Results * COLONOSCOPY (12/19/2022 7:40 AM SOLVENT MIXER) Anatomical Region Laterality Modality Other Narrative Procedure Note Scooby Saez MD - 12/19/2022 7:[address] [facility] Patient Name: [place] Jon Procedure Date: 12/19/2022 7:40 AM Date of : 1965 Admit Type: Outpatient Age: 57 Gender: Female Attending MD: Scooby Saez M.D. Room: [facility] 1 Note Status: Finalized Patient [...] under direct vision. The Pediatric Colonoscope PCF-H190L [id number] was introducedthrough the anus and advanced to [...] 7:40 AM Procedure Code(s): --- Professional --- 47721, Colonoscopy, flexible; diagnostic, including collection of specimen(s) by brushing or washing, when performed (separateprocedure) Diagnosis Code(s): --- Professional --- Z86.010, Personal history of colonic polyps K64.8, Other hemorrhoids CPT copyright 2020 [employer]. All rights reserved. The codes documented in this report are preliminary and upon computer language coder reviewmay be revised to meet current compliance requirements. Recognized by the [employer] for promoting quality [...] 0815, Pre-Procedure (GI) Restarted 12/19/2022 9:04 AM SOLVENT MIXER New Bag 12/19/2022 7:57 AM SOLVENT MIXER 30 mL/hr 30 mL/hr sodium chloride 0.9% infusion 125 mL/hr, intravenous, Continuous, Starting on Sat12/19/22 at 0815, Recovery (GI) documented in this encounter Active and Recently Administered Medications Times are shown in SOLVENT MIXER. Continuous Medication Order 12/17/2022 12/18/2022 12/19/2022 sodium [...] 12/19/2022 documented in this encounter Care Teams Sales Enablement Analyst Relationship Specialty Start Date End Date Audelia Kim MD [address] [place] [address] PCP - auto body repairer Obstetrics and Gynecology 11/30/22 Johnny Mcgill PA [address] [place] [address] PCP - General Family Practice 11/30/22 Michael Otoole MD Referring Physician Otolaryngology 06/15/21 documented as of this encounter
--- OUTSIDE RECORDS SUMMARY | 2024-10-25 08:26 | XMS_ITS | Encounter Summary ---
Author Organization [facility] Address [address] [place] [address] Care Team Providers Care Printing Supplies Sales Representative Name Role Phone Michael Otoole MD Unavailable [phone] Audelia Kim MD Unavailable [phone] Johnny Mcgill Primary Care Provider Reason for Referral * MRI/CAT/PET Scan (Routine) - Closed Specialty Diagnoses / Procedures Referred By Regineac t Referred To Contact Radiology Diagnoses Other nonspecific abnormal finding of lung field Procedures CT Chest WO Contrast F/U Lung Screen Protocol Audelia Kim MD [address] [place] [address] Phone: tel: fax: [address] [phone] Referral ID Status Reason Start Date Expiration Date Visits Re quested Visits Authorized [id number] Closed 03/07/2023 06/07/2023 1 1 Reason for Visit * MRI/CAT/PET Scan (Routine) - Closed Specialty Diagnoses / Procedures Referred By Panfilo t Referred To Contact Radiology Diagnoses Other nonspecific abnormal finding of lung field Procedures CT Chest WO Contrast F/U Lung Screen Protocol Audelia Kim MD [address] [place] [address] Phone: tel: fax: [address] [address] Referral ID Status Reason Start Date Expiration Date Visits Re quested Visits Authorized [id number] Closed 03/07/2023 06/07/2023 1 1 Encounter Details Date Type Department Care Team (Latest Contact Info) Description 03/28/2023 3:57 PM CDT - 03/28/2023 11:59 PM CDT Hospital Encounter [facility] Imaging Center [address] [place] [address] Other nonspecific abnormal finding of lung field [...] on file Legal Sex Female 11:50 PM CONE WINDER Gender Identity Not on file Sexual Orientation [...] 12/31/2022 FINDINGS: SMOKING RELATED LUNG DISEASE: ?? Glzr-of-gqqxsjnc centrilobular and paraseptal emphysema. LUNG NODULES: ?? [...] AM T: ??03/29/2023 10:29 AM Report ID: [id number] Reading Location: ??[id number] Procedure Note Raúl Monique MD - 03/29/2023 [...] COMPARISON: 12/31/2022 FINDINGS: SMOKING RELATED LUNG DISEASE: Oozx-od-wvzazdli centrilobular andparaseptal emphysema. LUNG NODULES: Stable right lower lobe nodule measuring 1.0 x 0.4 cm (series 3, ). Of note, this nodule appears to be [...] Raúl Monique M.D. KR: NICOLETTE Report ID: [id number] Reading Location: [place] [address] Audelia Kim MD IMG CT PROCEDURES Final Resul t documented in this encounter Visit Diagnoses Diagnosis Other nonspecific abnormal finding of lung field documented in this encounter Care Teams Printing Supplies Sales Representative Relationship Specialty Start Date End Date Audelia Kim MD [address] [place] [address] PCP - program attendant Obstetrics and Gynecology 11/30/22 Johnny Mcgill PA [address] [place] [address] PCP - General Family Practice 11/30/22 Michael Otoole MD Referring Physician Otolaryngology 06/15/21 documented as of this encounter
--- OUTSIDE RECORDS SUMMARY | 2024-10-25 08:26 | XMS_ITS | Encounter Summary ---
Author Organization [facility] Address [address] [place] [address] Care Team Providers Care Fish Worm Grower Name Role Phone Michael Otoole MD Unavailable [phone] Audelia Kim MD Unavailable [phone] Johnny Mcgill Primary Care Provider [phone] Reason for Referral * MRI/CAT/PET Scan (Routine) - Closed Specialty Diagnoses / Procedures Referred By Contac t Referred To Contact Radiology Diagnoses Encounter for screening for malignant neoplasm of respiratory organs Nicotine dependence, cigarettes, uncomplicated Procedures CT Lung Cancer Screening Audelia Kim MD [address] [place] [address] Phone: tel: fax: [address] [phone] Referral ID Status Reason Start Date Expiration Date Visits Re quested Visits Authorized [id number] Closed 09/21/2024 12/21/2024 1 1 ALS WRITER Reason for Visit * MRI/CAT/PET Scan (Routine) - Closed Specialty Diagnoses / Procedures Referred By Panfilo ventura Referred To Contact Radiology Diagnoses Encounter for screening for malignant neoplasm of respiratory organs Nicotine dependence, cigarettes, uncomplicated Procedures CT Lung Cancer Screening Audelia Kim MD [address] [place] [address] Phone: tel: fax: [address] [address] Referral ID Status Reason Start Date Expiration Date Visits Re quested Visits Authorized [id number] Closed 09/21/2024 12/21/2024 1 1 Encounter Details Date Type Department Care Team (Latest Contact Info) Description 10/05/2024 4:32 PM APPEALS WRITER - 10/05/2024 11:59 PM APPEALS WRITER Hospital Encounter [facility] Imaging Center [address] [place] [address] Encounter for screening for malignant neoplasm of [...] on file Legal Sex Female 11:50 PM APPEALS WRITER Gender Identity Not on file Sexual Orientation Not on file documented as of this encounter Last Filed Vital Signs Vital Sign Reading Time Taken Comments Blood Pressure - - Pulse - - Temperature - - Respiratory Rate - - Oxygen Saturation - - Inhaled Oxygen Concentration - - Weight 81.6 kg (180 lb) 10/05/2024 4:44 PM APPEALS WRITER Height 167.6 cm (5' 6 ) 10/05/2024 4:44 PM APPEALS WRITER Body Mass Index 29.05 10/05/2024 4:44 PM APPEALS WRITER documented in this encounter Medications at Time [...] Read Routine (OP Routine) 10/05/2024 4:44 PM APPEALS WRITER Encounter for screening for malignant neoplasm of respiratory organs Nicotine dependence, cigarettes, uncomplicated documented in this encounter Results * CT Lung Cancer Screening (10/05/2024 4:44 PM APPEALS WRITER) Anatomical Region Laterality Modality Chest N/A Computed Tomogra phy 10/12/2024 9:00 AM APPEALS WRITER Narrative 10/12/2024 9:14 AM APPEALS WRITER EXAM DESCRIPTION: ?? CT LUNG CANCER SCREENING [...] AM T: ??10/12/2024 9:14 AM Report ID: [id number] Reading Location: ??[id number] Procedure Note Etelvina Terrazas MD - 10/12/2024 [...] Etelvina Matias M.D. FT: FT Report ID: [id number] Reading Location: [place] [address] Audelia Kim MD IMG CT PROCEDURES Final Resul t documented in this encounter Visit Diagnoses Diagnosis Encounter for screening for malignant neoplasm of respiratory organs Nicotine dependence, cigarettes, uncomplicated documented in this encounter Care Teams Fish Worm Grower Relationship Specialty Start Date End Date Audelia Kim MD [address] [place] [address] PCP - talent consultant Obstetrics and Gynecology 11/30/22 Johnny Mcgill PA [address] [place] [address] PCP - General Family Practice 11/30/22 Michael Otoole MD Referring Physician Otolaryngology 06/15/21 documented as of this encounter
--- OUTSIDE RECORDS SUMMARY | 2024-10-25 08:26 | XMS_ITS | Encounter Summary ---
Author Organization [facility] Address [address] [place] [address] Care Team Providers Care Extracting Machine Operator Name Role Phone Michael Otoole MD Unavailable [phone] Audelia Kim MD Unavailable [phone] Johnny Mcgill Primary Care Provider [phone] Reason for Referral * Diagnostic Imaging (Routine) - Closed Specialty Diagnoses / Procedures Referred By Contac t Referred To Contact Diagnoses Lumbar pain Procedures XR Sacroiliac Joints 3 or More Views Audelia Kim MD [address] [place] [address] Phone: tel: fax: [address] [phone] Referral ID Status Reason Start Date Expiration Date Visits Re quested Visits Authorized [id number] Closed 08/06/2024 09/05/2025 1 1 Reason for Visit * Diagnostic Imaging (Routine) - Closed Specialty Diagnoses / Procedures Referred By Contac t Referred To Contact Diagnoses Lumbar pain Procedures XR Sacroiliac Joints 3 or More Views Audelia Kim MD [address] [place] [address] Phone: tel: fax: [address] [phone] Referral ID Status Reason Start Date Expiration Date Visits Re quested Visits Authorized [id number] Closed 08/06/2024 09/05/2025 1 1 Encounter Details Date Type Department Care Team (Latest Contact Info) Description 08/06/2024 9:38 AM CDT - 08/06/2024 11:59 PM CDT Hospital Encounter [facility] Imaging Center [address] [place] [address] Lumbar pain Discharge Disposition: Discharge to home [...] on file Legal Sex Female 11:50 PM CARPENTER REPAIR Gender Identity Not on file Sexual Orientation [...] AM T: ??08/09/2024 8:19 AM Report ID: [id number] Reading Location: ??[id number] Procedure Note Addy Jung MD - 08/09/2024 [...] Addy Jung M.D. TH: TH Report ID: [id number] Reading Location: [id number] Audelia Kim MD IMG XR PROCEDURES Final Resul t documented in this encounter Visit Diagnoses Diagnosis Lumbar pain Lumbago documented in this encounter Care Teams Extracting Machine Operator Relationship Specialty Start Date End Date Audelia Kim MD [address] [place] [address] PCP - cellar supervisor Obstetrics and Gynecology 11/30/22 Johnny Mcgill PA [address] [place] [address] PCP - General Family Practice 11/30/22 Michael Otoole MD Referring Physician Otolaryngology 06/15/21 documented as of this encounter
--- OUTSIDE RECORDS SUMMARY | 2024-10-25 08:26 | XMS_ITS | Encounter Summary ---
Author Organization [facility] Healthcare Address [address] [place] [address] Care Team Providers Care Pillow Filler Name Role Phone Michael Otoole MD Unavailable [phone] Audelia Kim MD Unavailable Johnny Mcgill Primary Care Provider [phone] Encounter Details Date Type Department Care Team (Late st Contact Info) Description 12/24/2022 Telephone [facility] Imaging Center [address] [place] [address] Zina Rossi RN Social History Tobacco Use [...] on file Legal Sex Female 11:50 PM ABRASIVE GRADER HELPER Gender Identity Not on file Sexual Orientation Not on file documented as of this encounter Miscellaneous Notes * Telephone Encounter - Zina Rossi RN - 12/24/2022 10:56 AM ABRASIVE GRADER HELPER Reviewed history with patient. Patient is aware of date/time/location of CT LCS. SIVE GRADER HELPER documented in this encounter Plan of Treatment Not on file documented as of this encounter Visit Diagnoses Not on filedocumented in this encounter Care Teams Pillow Filler Relationship Specialty Start Date End Date Audelia Kim MD [address] [place] [address] PCP - sawmill moulder operator Obstetrics and Gynecology 11/30/22 Johnny Mcgill PA [address] [place] [address] PCP - General Family Practice 11/30/22 Michael Otoole MD Referring Physician Otolaryngology 06/15/21 documented as of this encounter
--- OUTSIDE RECORDS SUMMARY | 2024-10-25 08:26 | XMS_ITS | Encounter Summary ---
Author Organization [facility] Healthcare Address [address] [place] [address] Care Team Providers Care Printing Screen Assembler Name Role Phone Michael Otoole MD Unavailable [phone] Audelia Kim MD Unavailable [phone] Johnny Mcgill Primary Care Provider Reason for Visit * Reason Comments Arm Pain Encounter Details Date Type Department Care Team (Late st Contact Info) Description 03/28/2023 4:38 PM CDT - 03/28/2023 6:33 PM CDT Emergency [facility] Emergency Department [address] [place] [address] De Quervain's tenosynovitis, right (Primary Dx) Discharge [...] on file Legal Sex Female 11:50 PM RESIDENTIAL SOLAR SALES CONSULTANT Gender Identity Not on file Sexual Orientation [...] through Care Everywhere. * De Quervain Tenosynovitis (Faroese) documented in this encounter Medications at Time [...] radiates up the forearm at times. Taking nasi-sff-ztqtmjt pain medication with some relief. Patient History: [...] normal. Judgment: Judgment normal. Voice recognition software [employer] Direct was used to dictate and transcribe this document. Hospice Care Transitions Coordinator variances may occur. Despite proofreading, typographical errors [...] PM T: ??03/28/2023 5:53 PM Report ID: [id number] Reading Location: ??[id number] Procedure Note Carlitos Martinez MD - 03/28/2023 [...] Carlitos Martinez M.D. AG: NGA Report ID: [id number] Reading Location: [id number] Edgar DAI IMG XR PROCEDURES Final Resu lt documented in this encounter Visit Diagnoses Diagnosis De Quervain's tenosynovitis, right- Primary De Quervain's tenosynovitis, right documented in this encounter Orders Nursing Count Last Ordered Date First Orde red Date APPLY SPLINT (SPECIFY) 1 03/28/2023 documented in this encounter Care Teams Printing Screen Assembler Relationship Specialty Start Date End Date Audelia Kim MD [address] [place] [address] PCP - blind lacer Obstetrics and Gynecology 11/30/22 Johnny Mcgill PA [address] [place] [address] PCP - General Family Practice 11/30/22 Michael Otoole MD Referring Physician Otolaryngology 06/15/21 documented as of this encounter
--- OUTSIDE RECORDS SUMMARY | 2024-10-25 08:26 | XMS_ITS | Encounter Summary ---
Author Organization [facility] Medical [facility] Address [address] [facility] [address] [place] [address] Care Team Providers Care Stoker Mechanic Name Role Phone Michael Otoole MD Unavailable [phone] Audelia Kim MD Unavailable [phone] Johnny Mcgill Primary Care Provider [phone] Reason for Referral * Procedure (Routine) - Closed Specialty Diagnoses / Procedures Referred By Panfilo t Referred To Contact Diagnoses De Quervain's tenosynovitis, right Procedures De Quervain's injection: R extensor compartment 1 Alejandra Mcclellan MD Phone: tel: fax: [facility] Referral ID Status Reason Start Date Expiration Date Visits Re quested Visits Authorized [id number] Closed 04/24/2023 05/23/2024 1 1 Reason for Visit * Reason Comments Pain DOI: 12/19/2022 (aft er IV)[facility] ED: 03/28/2023 Encounter Details Date Type Department Care Team (Late st Contact Info) Description 04/24/2023 9:00 AM CDT Office Visit [facility] Medical [facility] Sports Medicine and Primary Care at [address] [place] [address] Alejandra Mcclellan MD [address] [place] [address] [address] [place] [address] De Querradha's tenosynovitis, right (Primary [...] on file Legal Sex Female 11:50 PM ROVING TECHNICIAN Gender Identity Not on file Sexual Orientation [...] from the original note were not included. [facility] Medical Group Primary [facility] Sports [facility] at [facility] Consult PCP: Johnny Mcgill PA Chief Complaint Patient presents with Right Wrist - Pain DOI: 12/19/2022 (after IV) [facility] ED: 03/28/2023 NEW PATIENT VISIT Subjective CHIEF COMPLAINT She had concerns including Pain of the Right Wrist (DOI: 12/19/2022 (after IV)/[facility] ED: 03/28/2023). HISTORY OF PRESENT ILLINESS Right [...] 5/5 wrist flexion, 5/5 wrist extension, 5/5 take out waiter, 5/5 finger ABduction, 5/5 thumb opposition, thumb [...] Carlitos Martinez M.D. AG: NGA Report ID: [id number] Reading Location: [id number] De Quervain's injection: R extensor compartment 1 [...] Procedure Name Priority Date/Time Associated Diagnosis Comments CA INJECTION 1 TENDON SHEATH/LIGAMENT APONEUROSIS Routine 04/24/2023 9:00 AM CDT De Quervain's tenosynovitis, right documented in this encounter Results * CA INJECTION 1 TENDON SHEATH/LIGAMENT APONEUROSIS (04/24/2023 9:00 [...] pain added in this encounter Care Teams Stoker Mechanic Relationship Specialty Start Date End Date Audelia Kim MD [address] [place] [address] [place] [address] PCP - chiropractor assistant Obstetrics and Gynecology 11/30/22 Johnny Mcgill PA [address] [place] [address] PCP - General Family Practice 11/30/22 Michael Otoole MD Referring Physician Otolaryngology 06/15/21 documented as of this encounter
--- OUTSIDE RECORDS SUMMARY | 2024-10-25 08:26 | XMS_ITS | Encounter Summary ---
Author Organization [facility] Healthcare Address [address] [place] [address] Care Team Providers Care Parts Salvager Name Role Phone Michael Otoole MD Unavailable [phone] Audelia Kim MD Unavailable [phone] Johnny Mcgill Primary Care Provider [phone] Encounter Details Date Type Department Care Team (Late st Contact Info) Description 03/27/2023 Telephone [facility] 1 [place] [address] Karli West RT Social History Tobacco Use [...] on file Legal Sex Female 11:50 PM FLAT MACHINE CUTTER Gender Identity Not on file Sexual Orientation Not on file documented as of this encounter Miscellaneous Notes * Telephone Encounter - Karli West RT - 03/27/2023 10:06 AM CDT Conf appt @ 10:06 documented in this encounter Plan of Treatment Not on file documented as of this encounter Visit Diagnoses Not on filedocumented in this encounter Care Teams Parts Salvager Relationship Specialty Start Date End Date Audelia Kim MD [address] [place] [address] [place] [address] PCP - venetian blind worker Obstetrics and Gynecology 11/30/22 Johnny Mcgill PA [address] [place] [address] PCP - General Family Practice 11/30/22 Michael Otoole MD Referring Physician Otolaryngology 06/15/21 documented as of this encounter
--- OUTSIDE RECORDS SUMMARY | 2024-10-25 08:27 | XMS_ITS | Encounter Summary ---
Author Organization [facility] Address [address] [place] [address] Care Team Providers Care Billing Services Manager Name Role Phone Johnny Mcgill Primary Care Provider [phone] Encounter Details Date Type Department Care Team (Late st Contact Info) Description 12/13/2017 9:52 AM COMMUNITY ACTION WORKER Anesthesia Event [facility] [address] [place] [address] Cayden Godoy MD [address] [place] [address] Anesthesia Record Procedure Summary Procedure Name Responsible [...] on file Legal Sex Female 11:50 PM COMMUNITY ACTION WORKER Gender Identity Not on file Sexual Orientation Not on file documented as of this encounter OR Notes * Anesthesia Postprocedure Evaluation - Cayden Godoy MD - 12/13/2017 10:25 AM CST Patient: Chelsea ALBERTO Procedure Summary Date: 12/13/17 Room / Location: [facility] ROOM 2 / [facility] Anesthesia Start: 951 Anesthesia Stop: 1010 [...] acceptable Pt is: normothermic Nausea/Vomiting status: none UNITY ACTION WORKER * Anesthesia Preprocedure Evaluation - Cayden Godoy [...] Informed Consent: Discussed plan with attending and MATERIALS CLERK. Anesthesia plan and risks discussed with patient. Consent and Attending signature: I and/or my designee have discussed the anesthesia plan, benefits, possible alternatives, parental presence at time of induction (if indicated), and clinically relevant risks that may include dental injury, unintentional awareness, and/or other complications. The patient and/or parent/legal guardian understand, and agree to proceed. All questions answered. UNITY ACTION WORKER documented in this encounter Plan of [...] ArrhythmiasIndications:Ventricula r Arrhythmias Given 12/13/2017 9:54 AM COMMUNITY ACTION WORKER 100 mg propofol (DIPRIVAN) IV intravenous, As needed, Starting on Sat12/13/17 at 0954, Anesthesia Intra-op Given 12/13/2017 10:07 AM COMMUNITY ACTION WORKER 30 mg Given 12/13/2017 10:04 AM COMMUNITY ACTION WORKER 30 mg Given 12/13/2017 10:01 AM COMMUNITY ACTION WORKER 40 mg sodium chloride 0.9% infusion 125 mL/hr, intravenous, Continuous, Starting on Sat12/13/17 at 0945, Recovery (GI) New Bag 12/13/2017 9:52 AM COMMUNITY ACTION WORKER documented in this encounter Care Teams Billing Services Manager Relationship Specialty Start Date End Date Johnny Mcgill PA [address] [place] [address] PCP - General 11/04/17 06/14/21 documented as of this encounter
--- OUTSIDE RECORDS SUMMARY | 2024-10-25 08:29 | XMS_ITS | Encounter Summary ---
Author Organization [facility] Healthcare Address [address] [place] [address] Care Team Providers Care Bass String Winder Name Role Phone Johnny Mcgill Primary Care Provider [phone] Encounter Details Date Type Department Care Team (Latest Contact Info) Description 12/13/2017 8:38 AM GREASE MAN - 12/13/2017 11:13 AM GREASE MAN Hospital Encounter [facility] [address] [place] [address] Scooby Saez MD [address] [place] [address] Polyp of descending colon, unspecified type Discharge Disposition: Discharge to home or self [...] on file Legal Sex Female 11:50 PM GREASE MAN Gender Identity Not on file Sexual Orientation Not on file documented as of this encounter Last Filed Vital Signs Vital Sign Reading Time Taken Comments Blood Pressure 119/77 12/13/2017 10:50 AM GREASE MAN Pulse 70 12/13/2017 10:50 AM GREASE MAN Temperature 36.2 ??C (97.2 ??F) 12/13/2017 10:[address] Respiratory Rate 16 12/13/2017 10:50 AM GREASE MAN Oxygen Saturation 100% 12/13/2017 10:50 AM GREASE MAN Inhaled Oxygen Concentration - - Weight 72.6 kg (160 lb) 12/13/2017 8:58 AM GREASE MAN Height 170.2 cm (5' 7 ) 12/13/2017 8:58 AM GREASE MAN Body Mass Index 25.06 12/13/2017 8:58 AM GREASE MAN documented in this encounter Discharge Disposition Disposition [...] GI PLAN/RECOMMENDATIONS: 1. colonoscopy Scooby Saez MD SE MAN documented in this encounter Procedure Notes * Scooby Saez MD - 12/13/2017 9:44 AM CSTAssociated Order(s): [facility] Patient Name: Chelsea Alberto Procedure Date: 12/13/2017 9:44 AM Date of : 1965 Admit Type: Outpatient Age: 52 Gender: Female Attending MD: Scooby Saez MD Room: [facility]COPY ROOM 2 Note Status: Finalized [...] under direct vision. The Pediatric Colonoscope PCF-H190L [id number] was introduced through the anus and advanced [...] 9:44 AM Procedure Code(s): --- Professional --- 02951, Colonoscopy, flexible; with removal of tumor(s), polyp(s), or other lesion(s) by snare technique Diagnosis Code(s): --- Professional --- Z86.010, Personal history of colonic polyps D12.4, Benign neoplasm of descending colon D12.5, Benign neoplasm of sigmoid colon K62.1, Rectal polyp CPT copyright 2014 [employer]. All rights reserved. The codes documented in this report are preliminary and upon contact center team lead review may be revised to meet current compliance requirements. Recognized by the [employer] for promoting quality in endoscopy SE MAN documented in this encounter Miscellaneous Notes * Perioperative Nursing Note - Haritha Nguyễn, RN - 12/13/2017 10:47 AM GREASE MAN 10[address] Dr Saez was here and talked to pt and her . SE MAN documented in this encounter Plan of Treatment Not on file documented as of this encounter Procedures Procedure Name Priority Date/Time Associated Diagnosis Comments SURGICAL PATHOLOGY Routine 12/13/2017 11 :50 AM GREASE MAN COLONOSCOPY 12/13/2017 9:44 AM GREASE MAN COLON REMOVAL HOT BIOPSY 12/13/2017 9:43 AM GREASE MAN COLONOSCOPY HX OF POLYPS Z86.010 SURGICAL PATHOLOGY 12/13/2017 12 :00 AM GREASE MAN documented in this encounter Results * Surgical pathology (12/13/2017 11:50 AM GREASE MAN) 12/13/2017 11:5 0 AM GREASE MAN 12/13/2017 11:50 AM GREASE MAN Narrative 12/16/2017 12:05 PM GREASE MAN [facility] Department of Pathology [address] [place] [address] Final Report ?Patient Name: CHELSEA FERRELL Address: [address] [place] [address] Service: Gastro ??[place], [place] ??[facility] Location: [facility] Taken: 12/13/2017 Gender: F Received 12/13/2017 : 1965 (Age: 52) Hospital #: [id number] Accessioned: 12/13/2017 ?? Patient Type: [facility] SDS [...] ??All submitted in cassette C. ??Garcia Kessler M.D./Raymond Huynh PGeoff Complete report with images are only be viewable in the PDF report The performance characteristics of some immunohistochemical stains, fluorescence in-situ hybridization tests and immunophenotyping by flow cytometry cited in this report (if any) were determined by the Surgical Pathology Department at [facility] as part of an ongoing quality analyst program and in compliance with federally mandated [...] characteristics determined by the Surgical Pathology Department [facility]. ??It has not been cleared or approved by the U. S. Food and Drug Administration. Scooby Saez MD LAB PATHOLOGY ORDERABLES F inal Result * COLONOSCOPY (12/13/2017 9:44 AM GREASE MAN) Anatomical Region Laterality Modality Other Narrative Procedure Note Scooby Saez MD - 12/13/2017 9:44 AM CST [facility] Patient Name: Chelsea Alberto Procedure Date: 12/13/2017 9:44 AM Date of : 1965 Admit Type: Outpatient Age: 52 Gender: Female Attending MD: Scooby Saez MD Room: [facility] ENDOSCOPY ROOM 2 Note Status: Finalized [...] passed under direct vision.The Pediatric Colonoscope PCF-H190L [id number] was introduced through the anus and advanced [...] 9:44 AM Procedure Code(s): --- Professional --- 36167, Colonoscopy, flexible; with removal of tumor(s), polyp(s), or other lesion(s) by snare technique Diagnosis Code(s): --- Professional --- Z86.010, Personal history of colonic polyps D12.4, Benign neoplasm of descending colon D12.5, Benign neoplasm of sigmoid colon K62.1, Rectal polyp CPT copyright 2014 [employer]. All rights reserved. The codes documented in this report are preliminary and upon contact center team lead reviewmay be revised to meet current compliance requirements. Recognized by the [employer] for promoting quality in endoscopy Scooby Saez MD ENDOSCOPY PROCEDURES Final Result * SURGICAL PATHOLOGY (12/13/2017 12:00 AM GREASE MAN) Narrative 12/13/2017 12:00 AM GREASE MAN Ordered by an unspecified provider. Historical Provider LAB PATHOLOGY ORDERABLES Final Result documented in this encounter Visit Diagnoses Diagnosis Polyp of descending colon, unspecified type documented in this encounter Administered Medications Inactive [...] 0945, Pre-Op New Bag 12/13/2017 9:40 AM GREASE MAN 30 mL/hr 30 mL/hr Right Hand sodium chloride 0.9% infusion 125 mL/hr, intravenous, Continuous, Starting on Sat12/13/17 at 0945, Recovery (GI) New Bag 12/13/2017 9:52 AM GREASE MAN documented in this encounter Discontinued Medications Medication [...] Recently Administered Medications Times are shown in GREASE MAN. Continuous Medication Order 12/11/2017 12/12/2017 12/13/2017 sodium [...] 12/13/2017 documented in this encounter Care Teams Bass String Winder Relationship Specialty Start Date End Date Johnny Mcgill PA [address] [place] [address] PCP - General 11/04/17 06/14/21 documented as of this encounter
--- OUTSIDE RECORDS SUMMARY | 2024-10-25 08:29 | XMS_ITS | Encounter Summary ---
Author Organization [facility] Address [address] [place] [address] Care Team Providers Care Lot Boss Name Role Phone Nanci Mcdaniel MD Primary Care Provider [phone] Encounter Details Date Type Department Care Team (Late st Contact Info) Description 12/20/2014 1:01 PM AQUATIC DIRECTOR - 12/20/2014 11:59 PM AQUATIC DIRECTOR Hospital Encounter [facility] Kristyn Britton MD [address] [place] [address] [address] [address] Encounter for screening mammogram for high-risk patient; Family history of malignant neoplasm of breast Social History Tobacco Use Types Packs/Day Years Used Date Smoking Tobacco: Never Assessed Alcohol Use Standard Drinks/Week Comments No 0 (1 standard drink = 0.6 oz pur e alcohol) Comments Unknown Sex and Gender Information Value Date Recorded Sex Assigned at Not on file Legal Sex Female 11:50 PM AQUATIC DIRECTOR Gender Identity Not on file Sexual Orientation Not on file documented as of this encounter Plan of Treatment Not on file documented as of this encounter Procedures Procedure Name Priority Date/Time Associated Diagnosis Comments DIGITAL MAMMOGRAPHY Routine 12/20/2014 1 :34 PM AQUATIC DIRECTOR documented in this encounter Results * DIGITAL MAMMOGRAPHY (12/20/2014 1:34 PM AQUATIC DIRECTOR) Anatomical Region Laterality Modality Breast Mammography 12/20/2014 1:34 PM AQUATIC DIRECTOR Narrative 12/30/2014 12:44 PM AQUATIC DIRECTOR MB Performed by: ??dr Screening Mamm Bi ??Acc#: ??[id number] DATE OF EXAM: ??Feb 23 2015 PLEASE SEE ADDENDUM BELOW CLINICAL HISTORY: Screening. ??Family history of breast cancer (mother). ??Previous mammogram 2 years ago at [facility]. RESULT: Craniocaudal and mediolateral oblique views demonstrate [...] FOR MALIGNANCY. 2. IF PRIOR MAMMOGRAMS FROM [facility] BECOMES AVAILABLE TO COMPARE, AN ADDENDUM REPORT WILL FOLLOW. BI-RADS CATEGORY 1 - NEGATIVE ADDENDUM: ?? DR. TRAVIS/johnnie 12/30/14 Comparison to prior mammogram at [facility] on 10/16/11 and another on 10/24/09 show [...] Fax: ??-- Attending Fax: ??-- Attending ID: ??[id number] Requesting ID: ??[id number] Report To 1 ID: ??[id number] Report To 1 Name: ??DR KRISTYN DEUTSCH Report To 1 FAX: ??-- NextGen Order #: Procedure Note Provider, MD Kapil - 02/21/2017 JOHNNIE Performed by: dr Farrar Mamm Bi Acc#: [id number] DATE OF EXAM: Dec 20 2014 PLEASE SEE ADDENDUMBELOW CLINICAL HISTORY: Screening. Family history of breast cancer (mother). Previous mammogram2 years ago at [facility]. RESULT: Craniocaudal and mediolateral oblique views demonstrate scatteredfibronodular densities in the breasts bilaterally. No dominant mass, skinthickening, nipple retraction or suspicious cluster of microcalcificationsseen. Digital technology was employed plus computer-aided detectionsoftware (R2) was utilized in interpretation of these images. Thisfacility utilizes a reminder system to notify patients of yearlymammograms. IMPRESSION: 1. NO FINDING SUSPICIOUS FOR MALIGNANCY. 2. IF PRIOR MAMMOGRAMS FROM [facility] BECOMES AVAILABLE TOCOMPARE, AN ADDENDUM REPORT WILL FOLLOW. BI-RADS CATEGORY 1 - NEGATIVE ADDENDUM: DR. TRAVIS/johnnie 12/30/14 Comparison to prior mammogram at [facility] on 10/16/11 andanother on 10/24/09 show a [...] Attending: DR KRISTYN DEUTSCH Requesting: DR KRISTYN DEUTSCH Requesting Fax: -- Attending Fax: -- Attending ID: [id number] Requesting ID: [id number] Report To 1 ID: [id number] Report To 1 Name: DR KRISTYN DEUTSCH Report To 1 FAX: -- NextGen Order #: us Historical Provider MD PATRIA reese Result documented in this encounter Visit Diagnoses Diagnosis Encounter for screening mammogram for high-risk patient Family history of malignant neoplasm of breast documented in this encounter Care Teams Lot Boss Relationship Specialty Start Date End Date Nanci Mcdaniel MD [address] [address] PCP - General 10/26/10 11/03/17 documented as of this encounter
--- OUTSIDE RECORDS SUMMARY | 2024-10-25 08:29 | XMS_ITS | Encounter Summary ---
Author Organization [facility] Healthcare Address [address] [place] [address] Care Team Providers Care Filter Machine Operator Name Role Phone Nanci Mcdaniel MD Primary Care Provider [phone] Encounter Details Date Type Department Care Team (Late st Contact Info) Description 06/12/2011 10:35 AM CDT - 06/12/2011 2:42 PM CDT Hospital Encounter [facility]INCON[facility] Merida MD [address] [place] [address] Localized osteoarthrosis, lower leg; Affections of shoulder region; Tobacco use disorder Social History Tobacco Use Types Packs/Day Years Used Date Smoking Tobacco: Never Assessed Alcohol Use Standard Drinks/Week Comments No 0 (1 standard drink = 0.6 oz pur e alcohol) Comments Unknown Sex and Gender Information Value Date Recorded Sex Assigned at Not on file Legal Sex Female 11:50 PM AS400 PROGRAMMER Gender Identity Not on file Sexual Orientation Not on file documented as of this encounter Plan of Treatment Not on file documented as of this encounter Visit Diagnoses Diagnosis Localized osteoarthrosis, lower leg Localized osteoarthrosis not specified whether primary or secondary, lower leg Affections of shoulder region Tobacco use disorder documented in this encounter Care Teams Filter Machine Operator Relationship Specialty Start Date End Date Nanci Mcdaniel MD [address] [address] PCP - General 10/26/10 11/03/17 documented as of this encounter
--- OUTSIDE RECORDS SUMMARY | 2024-10-25 08:29 | XMS_ITS | Encounter Summary ---
Author Organization [facility] Healthcare Address [address] [place] [address] Care Team Providers Care Adult And Pediatric Neurologist Name Role Phone Johnny Mcgill Primary Care Provider [phone] Encounter Details Date Type Department Care Team (Late st Contact Info) Description 12/13/2017 9:45 AM TANK HOUSE OPERATOR HELPER - 12/13/2017 10:15 AM [facility] Surgery [address] [address] Scooby Saez MD [address] [place] [id number] COLON REMOVAL HOT BIOPSY Surgery Details Date/Time [...] on file Legal Sex Female 11:50 PM TANK HOUSE OPERATOR HELPER Gender Identity Not on file Sexual Orientation Not on file documented as of this encounter Last Filed Vital Signs Vital Sign Reading Time Taken Comments Blood Pressure 96/66 12/13/2017 10:11 AM TANK HOUSE OPERATOR HELPER Pulse 77 12/13/2017 10:11 AM TANK HOUSE OPERATOR HELPER Temperature 36 ??C (96.8 ??F) 12/13/2017 8:58 AM TANK HOUSE OPERATOR HELPER Respiratory Rate 19 12/13/2017 10:11 AM TANK HOUSE OPERATOR HELPER Oxygen Saturation 100% 12/13/2017 10:11 AM TANK HOUSE OPERATOR HELPER Inhaled Oxygen Concentration - - Weight 72.6 kg (160 lb) 12/13/2017 8:58 AM TANK HOUSE OPERATOR HELPER Height 170.2 cm (5' 7 ) 12/13/2017 8:58 AM TANK HOUSE OPERATOR HELPER Body Mass Index 25.06 12/13/2017 8:58 AM TANK HOUSE OPERATOR HELPER documented in this encounter Discharge Disposition [...] GI PLAN/RECOMMENDATIONS: 1. colonoscopy Scooby Saez MD HOUSE OPERATOR HELPER documented in this encounter Procedure Notes * Scooby Saez MD - 12/13/2017 9:44 AM CSTAssociated Order(s): COLONOSCOPY [facility] Patient Name: Chelsea Alberto Procedure Date: 12/13/2017 9:44 AM Date of : 1965 Admit Type: Outpatient Age: 52 Gender: Female Attending MD: Scooby Saez MD [facility] 2 Note Status: Finalized [...] under direct vision. The Pediatric Colonoscope PCF-H190L [id number] was introduced through the anus and advanced [...] 9:44 AM Procedure Code(s): --- Professional --- 00299, Colonoscopy, flexible; with removal of tumor(s), polyp(s), or other lesion(s) by snare technique Diagnosis Code(s): --- Professional --- Z86.010, Personal history of colonic polyps D12.4, Benign neoplasm of descending colon D12.5, Benign neoplasm of sigmoid colon K62.1, Rectal polyp CPT copyright 2014 [employer]. All rights reserved. The codes documented in this report are preliminary and upon endbander review may be revised to meet current compliance requirements. Recognized by the [employer] for promoting quality in endoscopy HOUSE OPERATOR HELPER documented in this encounter Miscellaneous Notes * Perioperative Nursing Note - Haritha Nguyễn, RN - 12/13/2017 10:47 AM TANK HOUSE OPERATOR HELPER [address] Dr Saez was here and talked to pt and her . HOUSE OPERATOR HELPER documented in this encounter Plan of Treatment Not on file documented as of this encounter Procedures Procedure Name Priority Date/Time Associated Diagnosis Comments SURGICAL PATHOLOGY Routine 12/13/2017 11 :50 AM TANK HOUSE OPERATOR HELPER COLONOSCOPY 12/13/2017 9:44 AM TANK HOUSE OPERATOR HELPER COLON REMOVAL HOT BIOPSY 12/13/2017 9:43 AM TANK HOUSE OPERATOR HELPER COLONOSCOPY HX OF POLYPS Z86.010 SURGICAL PATHOLOGY 12/13/2017 12 :00 AM TANK HOUSE OPERATOR HELPER documented in this encounter Results * Surgical pathology (12/13/2017 11:50 AM TANK HOUSE OPERATOR HELPER) 12/13/2017 11:5 0 AM TANK HOUSE OPERATOR HELPER 12/13/2017 11:50 AM TANK HOUSE OPERATOR HELPER Narrative 12/16/2017 12:05 PM TANK HOUSE OPERATOR HELPER [facility] Department of Pathology [address] [place] [id number] Final Report ?Patient Name: CHELSEA FERRELL Address: [address] [place] [address] Service: Gastro ??[place], [place] ??[facility] Location: [facility] Taken: 12/13/2017 Gender: F Received 12/13/2017 : 1965 (Age: 52) Hospital #: [id number] Accessioned: 12/13/2017 ?? Patient Type: [facility] SDS [...] determined by the Surgical Pathology Department at [facility] as part of an ongoing senior quality assurance specialist program and in compliance with federally mandated [...] characteristics determined [facility]. ??It has not been cleared or approved by the U. S. Food and Drug Administration. Scooby Saez MD LAB PATHOLOGY ORDERABLES F inal Result * COLONOSCOPY (12/13/2017 9:44 AM TANK HOUSE OPERATOR HELPER) Anatomical Region Laterality Modality Other Narrative Procedure Note Scooby Saez MD - 12/13/2017 9:44 AM CST [facility] Patient Name: Chelsea Alberto Procedure Date: 12/13/2017 9:44 AM Date of : 1965 Admit Type: Outpatient Age: 52 Gender: Female Attending MD: Scooby Saez MD Room: [facility] 2 Note Status: Finalized [...] passed under direct vision.The Pediatric Colonoscope PCF-H190L [id number] was introduced through the anus and advanced [...] 9:44 AM Procedure Code(s): --- Professional --- 66901, Colonoscopy, flexible; with removal of tumor(s), polyp(s), or other lesion(s) by snare technique Diagnosis Code(s): --- Professional --- Z86.010, Personal history of colonic polyps D12.4, Benign neoplasm of descending colon D12.5, Benign neoplasm of sigmoid colon K62.1, Rectal polyp CPT copyright 2014 [employer]. All rights reserved. The codes documented in this report are preliminary and upon endbander reviewmay be revised to meet current compliance requirements. Recognized by the [employer] for promoting quality in endoscopy Scooby Saez MD ENDOSCOPY PROCEDURES Final Result * SURGICAL PATHOLOGY (12/13/2017 12:00 AM TANK HOUSE OPERATOR HELPER) Narrative 12/13/2017 12:00 AM TANK HOUSE OPERATOR HELPER Ordered by an unspecified provider. Historical [...] 0945, Pre-Op New Bag 12/13/2017 9:40 AM TANK HOUSE OPERATOR HELPER 30 mL/hr 30 mL/hr Right Hand sodium chloride 0.9% infusion 125 mL/hr, intravenous, Continuous, Starting on Sat12/13/17 at 0945, Recovery (GI) New Bag 12/13/2017 9:52 AM TANK HOUSE OPERATOR HELPER documented in this encounter Discontinued Medications [...] Recently Administered Medications Times are shown in TANK HOUSE OPERATOR HELPER. Continuous Medication Order 12/11/2017 12/12/2017 12/13/2017 [...] 12/13/2017 documented in this encounter Care Teams Adult And Pediatric Neurologist Relationship Specialty Start Date End Date Johnny Mcgill PA [address] [place] [address] PCP - General 11/04/17 06/14/21 documented as of this encounter
--- OUTSIDE RECORDS SUMMARY | 2024-10-25 08:29 | XMS_ITS | Encounter Summary ---
Author Organization [facility] Healthcare Address [address] [place] [address] Care Team Providers Care Manager Hardware Name Role Phone Johnny Mcgill Primary Care Provider [phone] Encounter Details Date Type Department Care Team (Late st Contact Info) Description 11/18/2017 4:02 PM SERVICENOW ADMINISTRATOR DEVELOPER - 11/18/2017 11:59 PM SERVICENOW ADMINISTRATOR DEVELOPER Hospital Encounter [facility] [address] [place] [address] Johnny Mcgill PA [address] [place] [address] Du Shannon MD [address] [place] [address] [address] [place] [address] Screening breast examination Discharge Disposition: Discharge to home or self care Social History Tobacco Use Types Packs/Day Years Used Date Smoking Tobacco: Never Assessed Alcohol Use Standard Drinks/Week Comments No 0 (1 standard drink = 0.6 oz pur e alcohol) Comments No Sex and Gender Information Value Date Recorded Sex Assigned at Not on file Legal Sex Female 11:50 PM SERVICENOW ADMINISTRATOR DEVELOPER Gender Identity Not on file Sexual [...] Read Routine (OP Routine) 11/18/2017 4:27 PM SERVICENOW ADMINISTRATOR DEVELOPER Screening breast examination documented in this encounter Results * Screening Mammogram Bilateral W Abraham (11/18/2017 4:27 PM SERVICENOW ADMINISTRATOR DEVELOPER) Anatomical Region Laterality Modality Breast Bilateral Mammography Impressions 11/19/2017 6:59 AM SERVICENOW ADMINISTRATOR DEVELOPER 1. NO DEFINITIVE MAMMOGRAPHIC EVIDENCE OF MALIGNANCY 2. ??ANNUAL FOLLOW-UP RECOMMENDED BI-RADS 1 Electronically signed by: Raúl Deng M.D. Narrative 11/19/2017 6:59 AM SERVICENOW ADMINISTRATOR DEVELOPER SCREENING MAMMOGRAM BILATERAL W ABRAHAM HISTORY: Encounter [...] examination documented in this encounter Care Teams Manager Hardware Relationship Specialty Start Date End Date Johnny Mcgill PA [address] [place] [address] PCP - General 11/04/17 06/14/21 documented as of this encounter
--- OUTSIDE RECORDS SUMMARY | 2024-10-25 08:29 | XMS_ITS | Encounter Summary ---
Author Organization [facility] Healthcare Address [address] [place] [address] Care Team Providers Care Rag Cutting Machine Tender Name Role Phone Nanci Mcdaniel MD Primary Care Provider [phone] Encounter Details Date Type Department Care Team (Late st Contact Info) Description 06/07/2011 4:41 PM CDT - 06/07/2011 11:59 PM CDT Hospital Encounter [facility]INCON[facility] Merida MD [address] [address] Other specified pre-operative examination Social History Tobacco Use Types Packs/Day Years Used Date Smoking Tobacco: Never Assessed Alcohol Use Standard Drinks/Week Comments No 0 (1 standard drink = 0.6 oz pur e alcohol) Comments Unknown Sex and Gender Information Value Date Recorded Sex Assigned at Not on file Legal Sex Female 11:50 PM BOWLING FLOOR MANAGER Gender Identity Not on file Sexual Orientation Not on file documented as of this encounter Plan of Treatment Not on file documented as of this encounter Visit Diagnoses Diagnosis Other specified pre-operative examination documented in this encounter Care Teams Rag Cutting Machine Tender Relationship Specialty Start Date End Date Nanci Mcdaniel MD [address] [address] PCP - General 10/26/10 11/03/17 documented as of this encounter
--- OUTSIDE RECORDS SUMMARY | 2024-10-25 08:29 | XMS_ITS | Encounter Summary ---
Author Organization [facility] Healthcare Address [address] [place] [address] Care Team Providers Care Building Serviceman Name Role Phone Nanci Mcdaniel MD Primary Care Provider [phone] Encounter Details Date Type Department Care Team (Late st Contact Info) Description 01/15/2013 1:00 PM CDT - 01/15/2013 3:06 PM CDT Hospital Encounter [facility] Concepcion Perez MD [address] [place] [address] Bronchitis; Chronic sinusitis; Tobacco use disorder Social History Tobacco Use Types Packs/Day Years Used Date Smoking Tobacco: Never Assessed Alcohol Use Standard Drinks/Week Comments No 0 (1 standard drink = 0.6 oz pur e alcohol) Comments Unknown Sex and Gender Information Value Date Recorded Sex Assigned at Not on file Legal Sex Female 11:50 PM PC TECH Gender Identity Not on file Sexual Orientation Not on file documented as of this encounter Plan of Treatment Not on file documented as of this encounter Visit Diagnoses Diagnosis Bronchitis Bronchitis, not specified as acute or chronic Chronic sinusitis Unspecified sinusitis (chronic) Tobacco use disorder documented in this encounter Care Teams Building Serviceman Relationship Specialty Start Date End Date Nanci Mcdaniel MD [address] [address] PCP - General 10/26/10 11/03/17 documented as of this encounter
--- OUTSIDE RECORDS SUMMARY | 2024-10-25 08:29 | XMS_ITS | Encounter Summary ---
Author Organization [facility] Healthcare Address [address] [place] [address] Care Team Providers Care Curb Attendant Name Role Phone Unavailable Primary Care Provider Unavailabl e Encounter Details Date Type Department Care Team (Late st Contact Info) Description 11/14/2006 12:01 AM HAND PAINT MIXER - 11/14/2006 11:59 PM HAND PAINT MIXER Hospital Encounter [facility] Onel Arzola Social History Tobacco Use Types Packs/Day Years Used Date Smoking Tobacco: Never Assessed Comments Unknown Sex and Gender Information Value Date Recorded Sex Assigned at Not on file Legal Sex Female 11:50 PM HAND PAINT MIXER Gender Identity Not on file Sexual Orientation Not on file documented as of this encounter Plan of Treatment Not on file documented as of this encounter Visit Diagnoses Not on filedocumented in this encounter
== END 2024-10-18 10:09 | disposition home or self-care (01) ==
PROVIDERS: Emergency Provider Nurse Practitioner Family; PCP Family Medicine
DX: J40 Bronchitis, not specified as acute or chronic (principal); J06.9 Acute upper respiratory infection, unspecified; F17.200 Nicotine dependence, unspecified, uncomplicated
CPT/HCPCS: 71046; 99213; G0463